=== PATIENT | male | born 1955 | race Caucasian/White ===

== ENCOUNTER 2024-09-24 08:34 | Emergency (ER) | payer MEDICARE, OTHER ==
--- OUTSIDE RECORDS SUMMARY | 2024-09-24 08:45 | XMS REPORT | Continuity of Care Document ---
Author Name Unknown Address [address] [facility] [address] [place] [address] [facility] [place] Address [address] [facility] [place] [address] Care Team Providers Care Filling Layer Up Name Role Phone Monae RICHTER, Kelsey Alonzo Primary Care Physician RONALD CRUZ Attending Clinician Unavailab le Doctor Unassigned, [place] Attending Clinician U jorge luis Taylor, [facility] Main Attending Clinician UnavailTanvi Randhawa MD Attending Clinician [phone] TANVI CARDENAS Attending Clinician Unavailabl e Jaylin Lee Attending Clinician [phone] YANELIS ENGLE Attending Clinician Unavailable Yanelis Engle MD Attending Clinician [phone] Sofiya GABRIEL, Carlos Jin Attending Clinician Unavail CARLOS Garcia Attending Clinician UnavailDago Duenas DO Attending Clinician [phone] Carlos Escobar MD Attending Clinician [phone] Jude RICHTER, Mavis Olea Attending Clinician [phone] Doctor Unassigned, [place]igler Attending Clinician U Trina García Attending Clinician DIANE MENEZES Attending Clinician Unavailab Diane Schmitt DO Attending Clinician [phone] DARLEEN SAWANT Attending Clinician Unavailable JOSE E MOORE Attending Clinician Unavailable Kelsey Pinto MD Attending Clinician + [phone] STEPHON ESCOBAR Attending Clinician Unavailable Ulises Attending Clinician Unavailable Jese RICHTER, Darleen Attending Clinician [phone] MAVIS DURAN Attending Clinician Unavailannabel Escobar MD, Stephon Attending Clinician [phone] KELSEY PINTO Attending Clinician UnaCASA Sanchez Attending Clinician Unavailable CASA TRIPLETT Attending Clinician Unavailable Lay Gilbert Attending Clinician Unavailgeneva White RN, Hannah Pascual Attending Clinician Unavail able TYREE CHATTERJEE Attending Clinician Unavailable Mera RICHTER, Tanvi Attending Clinician [phone] Riley Junior MD Attending Clinician [phone] Tyree Chatterjee DO Attending Clinician [phone] ALEX KEYES Attending Clinician Unavailable Alex Keyes MD Attending Clinician [phone] Jose Guadalupe Seaman MD Attending Clinician [phone] JOSE GUADALUPE SEAMAN Attending Clinician Unavailable KARRI ARRIAGA Attending Clinician Unavailable Brain PANDEY Attending Clinician Unavailable Brain Rivera Attending Clinician [phone] Katerin Moffett MD Attending Clinician [phone] Casa Triplett DO Attending Clinician [phone] MELANIE SANCHEZ Attending Clinician UnavailMelanie Winter MD Attending Clinician [phone] OG ESCOBAR Attending Clinician Unavailable Og Escobar MD Attending Clinician [phone] Only, Adc Test Attending Clinician Unavailable Ronald Cruz DO Attending Clinician [phone] Mckayla Forrester Attending Clinician Carlos GABRIEL, Rio Jin Attending Clinician Unavailab Gilberto Olivarez Endo/Diab Attending Clinician Unavail able LAY MARADIAGA Attending Clinician Unavailable Antonio GABRIEL, Avani Attending Clinician Unavailab Tanvi Alaniz MD Attending Clinician + [phone] OWEN CHENEY Attending Clinician Unavailable Owen Cheney MD Attending Clinician [phone] STEPHANI ALCANTARA Attending Clinician Unavailable GEORGIA FOSTER Attending Clinician Unavailable GRAMM ZEINAB A Attending Clinician Unavailable Gramm G[employer] WE[employer] DRILLING MANAGER, Zeinab A Attending Clinician + [phone] MANDYVERA A Attending Clinician Unavailable Vera Bustamante Attending Clinician [phone] Therapist, [facility] Respiratory Attending Clinician U Jason Allen MD Attending Clinician [phone] JASON RODRIGUEZ Attending Clinician Unavaila ble Tech, [facility] Sleep Lab Attending Clinician Unavaila Gayle Grant MD Attending Clinician + [phone] GAYLE BARRAGAN Attending Clinician Unavaila GAYLE Grant Attending Clinician Unavaila John Smith MD Attending Clinician [phone] Pob, [facility] Lab Main Attending Clinician UnavailELIDA Ibanez Attending Clinician Unavailable Rogerio Bojorquez DO Attending Clinician [phone] CHRISTIE HANKS Attending Clinician UnavailChristie Rangel MD Attending Clinician + [phone] , [facility] Vascular Room 1 - Attending Clinician Un available Elida Rangel MD Attending Clinician [phone] Ajibade_O_AH Attending Clinician Unavailable Daniel Lawler Attending Clinician [phone] Arun Brock MD Attending Clinician [phone] Outpt-Jocelin Vital Attending Clinician Unavailable Maninder Grady MD Attending Clinician +[phone] MANINDER GRADY Attending Clinician Unavailable 2, [facility] Attending Clinician Unavailable KATERIN MOFFETT Attending Clinician Unavailable Ige-Odunuga_J_AH Attending Clinician Unavailable Tech, [facility] Cardio Vascular Attending Clinician Un available [facility] Attending Clinician Unavailable Nadia Tenorio PT Attending Clinician Unavailab RONALD Mckeon Admitting Clinician Unavailab CARLOS Mancilla Admitting Clinician UnavailCarlos Mccoy MD Admitting Clinician Ulises Admitting Clinician Unavailable RILEY JUNIOR Admitting Clinician Unavailable STEPHON ESCOBAR Admitting Clinician Unavailable Stephon Escobar MD Admitting Clinician [phone] ALEX KEYES Admitting Clinician Unavailable JOSE E MOORE Admitting Clinician Unavailable Brain PANDEY Admitting Clinician Unavailable DIANE MENEZES Admitting Clinician Unavailab OG Mancilla Admitting Clinician Unavailable Og Escobar MD Admitting Clinician +[phone] Ronald Cruz DO Admitting Clinician +[phone] CASA TRIPLETT Admitting Clinician Unavailable OWEN CHENEY Admitting Clinician Unavailable MELANIE SANCHEZ Admitting Clinician Unavailgeneva hawkins Ajibade_O_AH Admitting Clinician Unavailable Daniel Lawler Admitting Clinician + [phone] MAVIS DURAN Admitting Clinician Unavaila ble Ige-Odunuga_J_AH Admitting Clinician Unavailable Payers Payer Name Policy Type Policy Number Effective Date Expirati on Date Source [employer] [place] CLASS[place] PREMIUM HMO [id number] 2020 00:00:00 [employer] HE[employer] MC[employer] ADVANTAGE PLAN OON DSYHJE 2022 00:00:00 [employer] HEALTH (MEDICARE REPLACEMENT HMO) DSYHJE 2022 00:00:00 [employer] [place]IC[place] REPLACEMENT/ADVANT[place] GE - HMO) [id number] 2019 00:00:00 [employer] [facility] [place] [employer] [id number] 2018 00:00:00 2019 00:00:00 Problems Condition Name Condition Details Condition Category Status Onset Date Resolution Date Last Treatment Date Treating Clinician Comments Source Cellulitis of left foot Cellulitis of left foot Disease Active 11-13 00:00: 00 [facility] Bradycardi a Bradycardi a Disease Active 06-15 00:00: 00 [facility] S/P carotid endarterec suresh S/P carotid endarterec suresh Disease Active 2021-06 00:00: 00 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 Added automatic ally from request for surgery [id number] [facility] Fatty liver Fatty liver Disease Active 06-15 00:00: 00 [facility] Neuralgia Neuralgia Disease Active 11-01 00:00: 00 [facility] Essential hypertensi on Essential hypertensi on Disease Active 11-01 00:00: 00 [facility] CAD S/P percutaneo us coronary angioplast y CAD S/P percutaneo us coronary angioplast y Disease Active 01-24 00:00: 00 [facility] CAD S/P percutaneo us coronary angioplast y CAD S/P percutaneo us coronary angioplast y Disease Active 01-24 00:00: 00 [facility] Surgery, elective Surgery, elective Disease Active 2017-06 00:00: 00 [facility] Carotid stenosis Carotid stenosis Disease Active 2017-06 00:00: 00 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 Type 2 diabetes mellitus with peripheral vascular disease Type 2 diabetes mellitus with peripheral vascular disease Disease Active 2017-06 00:00: 00 [facility] Type 2 diabetes mellitus with peripheral vascular disease Type 2 diabetes mellitus with peripheral vascular disease Disease Active 2017-06 00:00: 00 [facility] Recurrent carotid stenosis, right Recurrent carotid stenosis, right Disease Active 01-28 00:00: 00 Overview: Formattin g of this note might be different from the original. Added automatic ally from request for surgery [id number] [facility] Chest pain Chest pain Disease Active 2-05 00:00: 00 [facility] MRSA (methicill in resistant staph aureus) culture positive MRSA (methicill in resistant staph aureus) culture positive Disease Active 07-07 00:00: 00 [facility] Pleural effusion Pleural effusion Disease Active 07-04 00:00: 00 [facility] Confusion Confusion Disease Active 06-28 00:00: 00 [facility] S/P CABG x 3 on 06/21/2017 S/P CABG x 3 on 06/21/2017 Disease Active 06-21 00:00: 00 [facility] CAD (coronary artery disease) CAD (coronary artery disease) Disease Active 06-21 00:00: 00 [facility] Left carotid stenosis Left carotid stenosis Disease Active 2016-06 0 00:00: 00 [facility] Stenosis of left carotid artery Stenosis of left carotid artery Disease Active 03-05 00:00: 00 Overview: Formattin g of this note might be different from the original. Added automatic ally from request for surgery [id number] [facility] Coronary artery disease involving [place] coronary artery of [place] heart without angina pectoris Coronary artery disease involving [place] coronary artery of [place] heart without angina pectoris Disease Active 03-02 00:00: 00 [facility] Coronary artery disease involving [place] coronary artery of [place] heart without angina pectoris Coronary artery disease involving [place] coronary artery of [place] heart without angina pectoris Disease Active 03-02 00:00: 00 [facility] Obesity (BMI 30-39.9) Obesity (BMI 30-39.9) Disease Active 03-01 00:00: 00 [facility] Carotid stenosis, right Carotid stenosis, right Disease Active 02-27 00:00: 00 Overview: Formattin g of this note might be different from the original. Added automatic ally from request for surgery [id number] [facility] Carotid stenosis, asymptomat ic, right Carotid stenosis, asymptomat ic, right Disease Active 02-20 00:00: 00 Overview: Formattin g of this note might be different from the original. Added automatic ally from request for surgery [id number] [facility] Bilateral carotid artery stenosis Bilateral carotid artery stenosis Disease Active 02-15 00:00: 00 Overview: Formattin g of this note might be different from the original. Added automatic ally from request for surgery [id number] [facility] Carotid stenosis, bilateral Carotid stenosis, bilateral Disease Active 02-01 00:00: 00 Overview: Formattin g of this note might be different from the original. Added automatic ally from request for surgery [id number] [facility] Dyslipidem ia Dyslipidem ia Disease Active 02-01 00:00: 00 [facility] Elevated troponin I level Elevated troponin I level Disease Active 01-31 00:00: 00 [facility] Hyperchole steremia Hyperchole steremia Disease Active 2014-06 00:00: 00 [facility] Diabetes mellitus, type II Diabetes mellitus, type II Disease Active 2014-06 00:00: 00 [facility] Panic attacks Panic attacks Disease Active 2014-06 00:00: 00 [facility] Benign prostatic hyperplasi a Benign prostatic hyperplasi a Disease Active 2014-06 00:00: 00 [facility] Adhesive capsulitis of right shoulder Adhesive capsulitis of right shoulder Diagnosis Active [facility] Pain in joint of right shoulder Pain in joint of right shoulder Diagnosis Active [facility] Allergies, Adverse Reactions, Alerts Allergy Name Allergy Type Status Severity Reaction(s) Onset Date Inactive Date Treating Clinician Comments Source KETOROLA C DRUG INGREDI Active High Hallucinates 07-04 00:00: 00 [facility] Ketorola c Propensi ty to adverse reaction s Active Hallucinatio ns 07-04 00:00: 00 [facility] Toradol Adverse Reaction Active Info Not Available [facility] Toradol Drug Allergy Active [facility] Social History Social Habit Start Date Stop Date Quantity Comments Source Gender identity [facility] intake 2023-05-03 00:00:00 2023-05-03 00:00:00 0 /d [facility] Exposure to SARS-CoV-2 (event) 2022-08-02 00:00:00 2022-08-12 02:46:[address] [facility] History of Social function 2022-06-14 00:00:00 2022-06-14 00:00:[address] [facility] Alcoholic beverage intake 2017-03-13 00:00:00 2017-03-13 00:00:00 0 /d [facility] Tobacco use and exposure 2015-05-19 00:00:00 2015-05-19 00:00:00 Smokeless tobacco non-user [facility] Sex assigned at 1955 00:00:00 1955 00:00:[address] [facility] Smoking Status Start Date Stop Date Source Never smoked tobacco [facility] Medications Ordered Medication Name Filled Medication Name Start Date Stop Date Current Medication? Ordering Clinician Indication Dosage Frequency Signature (SIG) Comments Components Source vancomycin (VANCOCIN) 1,500 mg in NaCl 0.9% (NS) 500 mL VIAL-MATE IV piggyback 11-18 19:15: 00 11-18 20:29 :00 No 15mg/kg 1,500 mg (rounded from 1,551 mg = 15 mg/kg ?103.4 kg), IV Piggyback, ONCE, 1 dose, On Sat11/19/23 at 1415, Administer over 90 Minutes, 500 mL, Reason for Anti-Infec tive: Documented Infection, Documented Infection Site: Skin / Soft Tissue, Duration of Therapy: Once (ED) [facility] linezolid 600 mg tablet 11-18 00:00: 00 Yes [id number] 600mg Take 1 tablet by mouth every 12 (twelve) hours. [facility] vancomycin 1,250 mg in NaCl 0.9% (NS) 250 mL VIAL-MATE IV piggyback 11-15 16:30: 00 11-22 16:29 :00 No 1250mg 1,250 mg, IV Piggyback, Q12H ABX, 14 doses, First dose on Sat11/16/23 at 1130, Last dose on Sat11/22/23 at 2330, Administer over 90 Minutes, 250 mL, Reason for Anti-Infec tive: Documented Infection, Documented Infection Site: Skin / Soft Tissue, Duration of Therapy: [address] [facility] fexofenadin e 180 mg tablet 11-15 14:11: 46 Yes 180mg Take 180 mg by mouth daily. [facility] amino acids/chrom ium (CHROMIMIN ORAL) 11-15 14:11: 46 Yes Take by mouth. [facility] metoprolol tartrate 50 mg tablet 11-15 14:11: 45 11-15 00:00 :00 No 50mg Take 1 tablet by mouth once now. [facility] insulin glargine (LANTUS U-100) injection 18 Units 11-15 02:00: 00 Yes 18U 18 Units, Subcutaneo us, QHS, First dose on Sat11/15/23 at 2100, Until Discontinu ed, Routine [facility] sulfamethox azole-trime thoprim 800-160 mg per tablet 11-15 00:00: 00 11-23 04:59 :00 No [id number] 1{tbl} Take 1 tablet by mouth in the morning and 1 tablet in the evening. Do all this for [address] [facility] vancomycin (VANCOCIN) 1,000 mg in NaCl 0.9% (NS) 250 mL VIAL-MATE IV piggyback 11-14 17:00: 00 11-15 11:54 :55 No 1000mg 1,000 mg, IV Piggyback, Q12H ABX, 14 doses, First dose on Sat11/15/23 at 1200, Last dose on Sat11/22/23 at 0000, Administer over 60 Minutes, 250 mL, Reason for Anti-Infec tive: Documented Infection, Documented Infection Site: Skin / Soft Tissue, Duration of Therapy: [address] [facility] Sliding Scale Insulin-Reg ular 11-14 16:30: 00 Yes Subcutaneo us, AC+HS, First dose on Sat11/15/23 at 1130, Until Discontinu ed, Routine [facility] aspirin chewable tablet 81 mg 11-14 14:00: 00 Yes 81mg 81 mg, Oral, DAILY, First dose on Sat11/15/23 at 0900, Until Discontinu ed, Routine [facility] enoxaparin (LOVENOX) injection 40 mg 11-14 14:00: 00 Yes 40mg 40 mg, Subcutaneo us, DAILY, First dose on Sat11/15/23 at 0900, Until Discontinu ed, Routine [facility] glucagon (GLUCAGEN DIAGNOSTIC KIT) injection 1 mg 11-14 12:46: 53 Yes 1mg 1 mg, Intramuscu lar, PRN, Starting on Sat11/15/23 at 0746, Until Discontinu ed, EMILY, Blood Glucose < or = 70 mg/dL and patient is NPO, unable to swallow or has mental changes. [facility] dextrose 50 % in water (D50W) injection 25 mL 11-14 12:46: 53 Yes 25mL 25 mL, Slow IV Push, PRN, Starting on Sat11/15/23 at 0746, Until Discontinu ed, EMILY, Blood Glucose < or = 70 mg/dL and patient is NPO, unable to swallow or has mental status changes. [facility] diazePAM (VALIUM) tablet 2.5 mg 11-14 12:36: [address] [facility] cyclobenzap rine (FLEXERIL) tablet 10 mg 11-14 12:36: [address] [facility] ampicillin- sulbactam (UNASYN) 3 g in NaCl 0.9% (NS) 100 mL MINI-BAG 11-14 06:00: 00 11-20 05:59 :00 No 3g 3 g, IV Piggyback, Q6H ABX, 24 doses, First dose on Sat11/15/23 at 0100, Last dose on Sat11/20/23 at 1900, Administer over 30 Minutes, 100 mL, Reason for Anti-Infec tive: Documented Infection, Documented Infection Site: Skin / Soft Tissue, Duration of Therapy: [address] [facility] ondansetron (ZOFRAN (PF)) injection 4 mg 11-14 04:48: 48 Yes 4mg 4 mg, Slow IV Push, Q6HPRN, Starting on Sat11/14/23 at 2348, Until Discontinu ed, Routine, Nausea and Vomiting (N/V) [facility] HYDROcodone -acetaminop hen (NORCO 5) 5-325 mg tablet 1 tablet 11-14 04:48: 40 11-16 04:47 :40 No 1{tbl} 1 tablet, Oral, Q6HPRN, Starting on Sat11/14/23 at 2348, Until 11/16/23 at 2347, Routine, Pain (scale 4-6) [facility] acetaminoph en (TYLENOL) tablet 650 mg 11-14 04:48: 39 Yes 650mg 650 mg, Oral, Q6HPRN, Starting on Katty 11/14/23 at 2348, Until Discontinu ed, Routine, Pain (scale 1-3) [facility] NaCl 0.9% (NS) bolus infusion 1,000 mL 11-14 04:30: 00 11-14 05:48 :00 No 1000mL at 999 mL/hr, 1,000 mL, IV Piggyback, ONCE, 1 dose, On Sat11/14/23 at 2330, STAT [facility] vancomycin (VANCOCIN) 1,000 mg in NaCl 0.9% (NS) 250 mL VIAL-MATE IV piggyback 11-14 04:15: 00 11-14 05:48 :00 No 1000mg 1,000 mg, IV Piggyback, ONCE, 1 dose, On Sat11/14/23 at 2315, Administer over 60 Minutes, 250 mL, Reason for Anti-Infec tive: Empiric Therapy for Suspected Infection, Empiric Therapy Site: Skin / Soft tissue, Duration of therapy: Once (ED) [facility] piperacilli n-tazobacta m (ZOSYN) 3.375 g in NaCl 0.9% (NS) 100 mL MINI-BAG 11-14 03:45: 00 11-14 04:26 :00 No 3.375g 3.375 g, IV Piggyback, ONCE, 1 dose, On Katty 11/14/23 at 2245, Administer over 30 Minutes, 100 mL, Reason for Anti-Infec tive: Documented Infection, Documented Infection Site: Skin / Soft Tissue, Duration of Therapy: Once (ED) [facility] clindamycin 300 mg capsule 2022-06 00:00: 00 05-11 05:59 :00 No [id number] 300mg Take 1 capsule by mouth 4 (four) times daily for [address] [facility] ALPRAZOLAM 1 mg tablet 12-05 00:00: 00 11-13 00:00 :00 No [id number] TAKE 1 TABLET BY MOUTH THREE TIMES DAILY NEEDED [facility] gabapentin 100 mg capsule 07-05 00:00: 00 Yes [id number] TAKE 1 CAPSULE BY MOUTH AT BEDTIME [facility] insulin degludec (TRESIBA FLEXTOUCH U-100) 100 unit/mL (3 mL) InPn 06-29 00:00: 00 09-24 00:00 :00 No 24U inject 24 Units under the skin daily. [facility] fexofenadin e 180 mg tablet 06-17 13:07: 38 Yes 180mg Take 180 mg by mouth daily. [facility] amino acids/chrom ium (CHROMIMIN ORAL) 06-17 13:07: 38 Yes Take by mouth. [facility] gabapentin (NEURONTIN) capsule 100 mg 06-17 02:00: 00 Yes 100mg 100 mg, Oral, TID, First dose on 06/16/22 at 2000, Until Discontinu ed, Routine [facility] cyclobenzap rine (FLEXERIL) tablet 10 mg 06-17 00:31: 19 Yes 10mg 10 mg, Oral, TIDPRN, Starting on 06/16/22 at 1831, Until Discontinu ed, Routine, Muscle Spasms [facility] magnesium sulfate in water 2 gram/50 mL (4 %) infusion 2 g 06-16 21:15: 00 06-16 22:15 :00 No 2g 2 g, IV Piggyback, Administer over 60 Minutes, ONCE, 1 dose, On 06/16/22 at 1515, Routine [facility] ALPRAZolam (XANAX) tablet 0.25 mg 06-16 18:31: 00 Yes .25mg 0.25 mg, Oral, TIDPRN, Starting on 06/16/22 at 1231, Until Discontinu ed, Routine, Anxiety [facility] prednisoLON E acetate (PRED-FORTE ) 1 % ophthalmic suspension drops 1 Drop 06-16 18:00: 00 Yes 1[drp] 1 Drop, Left Eye, QID, First dose on 06/16/22 at 1200, Until Discontinu ed, Routine [facility] moxifloxaci n (VIGAMOX) 0.5 % ophthalmic drops 1 Drop 06-16 18:00: 00 Yes 1[drp] 1 Drop, Left Eye, QID, First dose on 06/16/22 at 1200, Until Discontinu ed, Routine [facility] aspirin chewable tablet 81 mg 06-16 15:00: 00 Yes 81mg 81 mg, Oral, DAILY, First dose on 06/16/22 at 0900, Until Discontinu ed, Routine [facility] enoxaparin (LOVENOX) injection 40 mg 06-16 15:00: 00 Yes 40mg 40 mg, Subcutaneo us, DAILY, First dose on 06/16/22 at 0900, Until Discontinu ed, Routine [facility] Sliding Scale Insulin - Lispro (HumaLOG) + Fsbg Testing 06-16 03:00: 00 Yes Subcutaneo us, TID MEALS+HS, First dose on Sat06/15/22 at 2100, Until Discontinu ed, Routine [facility] atropine injection 0.3 mg 06-16 01:49: 28 Yes .3mg 0.3 mg, IV Push, PRN, Starting on Sat06/15/22 at 1949, Until Discontinu ed, Routine, Symptomati c Bradycardi a, with HR<50 [facility] fluticasone propionate 50 mcg/actuati on nasal spray 1 Aroda 06-16 01:47: 56 Yes 1{spray } 1 Aroda, Nasal, QDAILYPRN, Starting on Sat06/15/22 at 1947, Until Discontinu ed, NAsal congestion [facility] dextrose 10% (D10W) bolus infusion 250 mL 06-16 00:44: 38 Yes 250mL 250 mL, IV Infusion, PRN - SEE INSTRUCTIO NS, Administer over 60 Minutes, Other, If blood glucose is < or = 70 mg/dL and patient is unable to swallow or has mental status changes, Starting on Sat06/15/22 at 1844
If blood glucose is < or = 70 mg/dL and patient is unable to swallow or has mental status changes (Give glucagon order if patient needs fluid restrictio n): IF IV access available: Dextrose 10%. 1. 125 mL (? bag) of D10W IV infusion - equivalent to 12.5 g dextrose 2. Blood glucose - draw blood glucose 15 minutes after D10W Administra tion. 3. If blood glucose is < 80 mg/dL, repeat.
[facility] glucagon (GLUCAGEN DIAGNOSTIC KIT) injection 1 mg 06-16 00:44: 34 Yes 1mg 1 mg, Intramuscu lar, PRN, Starting on Sat06/15/22 at 1844, Until Discontinu ed, EMILY, Blood Glucose < or = 70 mg/dL and patient is unable to swallow or has mental changes. [facility] ALPRAZolam (XANAX) tablet 0.25 mg 06-15 23:45: 00 06-16 02:03 :00 No .25mg 0.25 mg, Oral, ONCE, 1 dose, On Sat06/15/22 at 1745, [facility] NaCl 0.9% (NS) bolus infusion 1,000 mL 06-15 22:45: 00 06-16 02:05 :36 No 1000mL at 999 mL/hr, 1,000 mL, IV Infusion, ONCE, 1 dose, On Sat06/15/22 at 1645, [facility] NaCl 0.9% (NS) bolus infusion 500 mL 06-15 21:30: 00 06-15 23:33 :00 No 500mL at 999 mL/hr, 500 mL, IV Infusion, ONCE, 1 dose, On Sat06/15/22 at 1530, [facility] atropine injection 1 mg 06-15 21:00: 00 06-15 21:02 :00 No 1mg 1 mg, IV Push, ONCE, 1 dose, On Sat06/15/22 at 1500, STAT [facility] fexofenadin e 180 mg tablet 06-15 19:43: 29 Yes 180mg Take 180 mg by mouth daily. [facility] amino acids/chrom ium (CHROMIMIN ORAL) 06-15 19:43: 29 Yes Take by mouth. [facility] lactated ringers IV infusion 1,000 mL 06-14 13:30: 00 06-14 13:43 :00 No 1000mL at 42 mL/hr, 1,000 mL, IV Infusion, ONCE, 1 dose, On Sat06/14/22 at 0730, Routine, DSU Pre-op [facility] moxifloxaci n (VIGAMOX) 0.5 % ophthalmic drops 1 Drop 06-14 13:18: 19 06-14 13:43 :00 No 1[drp] 1 Drop, Left Eye, Q5MIN PRN, 3 doses, Starting on Katty 06/14/22 at 0718, Until Katty 06/14/22 at 0743, Routine, Surgery/Pr ocedure, DSU Pre-op [facility] cyclopentol ate (CYCLOGYL) 2 % ophthalmic drops 1 Drop 06-14 13:18: 19 06-14 13:44 :00 No 1[drp] 1 Drop, Left Eye, Q5MIN PRN, 3 doses, Starting on Katty 06/14/22 at 0718, Until Katty 06/14/22 at 0744, Routine, administer if combinatio n drop not available, DSU Pre-op [facility] tropicamide (MYDRIACYL) 1 % ophthalmic drops 1 Drop 06-14 13:18: 19 06-14 13:43 :00 No 1[drp] 1 Drop, Left Eye, Q5MIN PRN, 3 doses, Starting on Katty 06/14/22 at 0718, Until Katty 06/14/22 at 0743, Routine, Surgery/Pr ocedure, administer if combinatio n drop not available, DSU Pre-op [facility] phenylephri ne (BEULAH-SYNEPH RINE) 2.5 % ophthalmic drops 1 Drop 06-14 13:18: 19 06-14 13:43 :00 No 1[drp] 1 Drop, Left Eye, Q5MIN PRN, 3 doses, Starting on Katty 06/14/22 at 0718, Until Katty 06/14/22 at 0743, Routine, Surgery/Pr ocedure, administer if combinatio n drop not available, DSU Pre-op [facility] fexofenadin e 180 mg tablet 06-14 12:37: 45 Yes 180mg Take 180 mg by mouth daily. [facility] amino acids/chrom ium (CHROMIMIN ORAL) 06-14 12:37: 45 Yes Take by mouth. [facility] fexofenadin e 180 mg tablet 2021-06 10:19: 51 Yes 180mg Take 180 mg by mouth daily. [facility] amino acids/chrom ium (CHROMIMIN ORAL) 2021-06 10:19: 51 Yes Take by mouth. [facility] fexofenadin e 180 mg tablet 2021-06 15:47: 17 Yes 180mg Take 180 mg by mouth daily. [facility] amino acids/chrom ium (CHROMIMIN ORAL) 2021-06 15:47: 17 Yes Take by mouth. [facility] traMADoL 50 mg tablet 2021-06 00:00: 00 05-18 05:59 :00 No [id number] 50mg Take 1 tablet by mouth every 6 (six) hours as needed for Pain (scale 4-6) or Pain (scale 7-10) for up to 7 days. Indication s: acute pain [facility] acetaminoph en 500 mg tablet 2021-06 00:00: 00 05-16 05:59 :00 No [id number] 1000mg Take 2 tablets by mouth every 8 (eight) hours for [address] [facility] methocarbam oL 500 mg tablet 2021-06 00:00: 00 05-16 05:59 :00 No [id number] 500mg Take 1 tablet by mouth 4 (four) times daily for [address] [facility] metFORMIN (GLUCOPHAGE ) tablet 1,000 mg 2021-06 23:00: 00 Yes 1000mg 1,000 mg, Oral, BID MEALS, First dose (after last reorder) on Sat05/09/22 at 1700, Until Discontinu ed [facility] barium sulfate-NO CHARGE- (VARIBAR NECTOR) 40 % (w/v) oral suspension 30 mL 2021-06 20:45: 00 05-09 20:35 :00 No [id number] 30mL 30 mL, Oral, ONCE, 1 dose, On Sat05/09/22 at 1445, Routine [facility] barium sulfate (VARIBAR THIN LIQUID) 81 % (w/w) oral powder 30 g 2021-06 20:30: 00 05-09 20:30 :00 No [id number] 30g 30 g, Oral, ONCE, 1 dose, On Sat05/09/22 at 1430, Routine [facility] Sliding Scale Insulin - Lispro (HumaLOG) + Fsbg Testing 2021-06 18:00: 00 Yes Subcutaneo us, Q4H, First dose (after last modificati on) on Sat05/09/22 at 1200, Until Discontinu ed, Routine [facility] ALPRAZolam (XANAX) tablet 1 mg 2021-06 17:30: 00 Yes 1mg 1 mg, Oral, TIDPRN, Starting on Sat05/09/22 at 1130, Until Discontinu ed, Routine, Insomnia, Anxiety [facility] loratadine (CLARITIN) tablet 10 mg 2021-06 16:15: 00 Yes 10mg 10 mg, Oral, DAILY, First dose on Sat05/09/22 at 1015, Until Discontinu ed, Routine [facility] sennosides (SENOKOT) tablet 8.6 mg 2021-06 15:00: 00 Yes 8.6mg 8.6 mg, Oral, DAILY, First dose on Sat05/09/22 at 0900, Until Discontinu ed, Routine [facility] docusate (COLACE) capsule 100 mg 2021-06 15:00: 00 Yes 100mg 100 mg, Oral, DAILY, First dose on Sat05/09/22 at 0900, Until Discontinu ed, Routine [facility] pantoprazol e (PROTONIX) EC tablet 40 mg 2021-06 15:00: 00 Yes 40mg 40 mg, Oral, DAILY, First dose on Sat05/09/22 at 0900, Until Discontinu ed, Routine
Indicatio n for use: None of the above [facility] fluticasone propionate 50 mcg/actuati on nasal spray 2 Aroda 2021-06 15:00: 00 Yes 2{spray } 2 Aroda, Nasal, DAILY, First dose on Sat05/09/22 at 0900, Until Discontinu ed, Routine [facility] KCL (KLOR-CON M20) tablet 20 mEq 2021-06 15:00: 00 Yes 20meq 20 mEq, Oral, QAM, First dose on Sat05/09/22 at 0900, Until Discontinu ed, Routine [facility] aspirin chewable tablet 81 mg 2021-06 15:00: 00 Yes 81mg 81 mg, Oral, DAILY, First dose on Sat05/09/22 at 0900, Until Discontinu ed, Routine [facility] acetaminoph en (TYLENOL) tablet 1,000 mg 2021-06 14:33: 13 Yes 1000mg 1,000 mg, Oral, Q8HPRN, Starting on Sat05/09/22 at 0833, Until Discontinu ed, Routine, Pain (scale 4-6), Pain (scale 1-3) [facility] magnesium sulfate in water 2 gram/50 mL (4 %) infusion 2 g 2021-06 12:45: 00 05-09 13:33 :00 No 2g 2 g, IV Piggyback, Administer over 60 Minutes, ONCE, 1 dose, On Sat05/09/22 at 0645, Routine [facility] acetaminoph en (TYLENOL) tablet 650 mg 2021-06 11:42: 00 05-09 14:33 :28 No 650mg 650 mg, Oral, Q8H ABX, First dose (after last modificati on) on Sat05/09/22 at 0545, Until Discontinu ed, Routine [facility] HYDROcodone -acetaminop hen (NORCO 5) 5-325 mg tablet 1 tablet 2021-06 03:58: 41 05-09 14:33 :28 No 1{tbl} 1 tablet, Oral, Q8HPRN, Starting on Sat05/08/22 at 2158, Until Sat05/09/22 at 0833, Routine, Pain (scale 4-6) [facility] acetaminoph en (TYLENOL) tablet 650 mg 2021-06 03:30: 00 05-09 03:59 :08 No 650mg 650 mg, Oral, Q6H, First dose on Sat05/08/22 at 2130, Until Discontinu ed, Routine [facility] atorvastati n (LIPITOR) tablet 80 mg 2021-06 03:00: 00 Yes 80mg 80 mg, Oral, QHS, First dose on Sat05/08/22 at 2100, Until Discontinu ed, Routine [facility] heparin (porcine) injection 5,000 Units 2021-06 02:00: 00 Yes 5000U 5,000 Units, Subcutaneo us, Q12H, First dose on Sat05/08/22 at 2000, Until Discontinu ed, Routine [facility] metoprolol tartrate (LOPRESSOR) tablet 50 mg 2021-06 02:00: 00 Yes 50mg 50 mg, Oral, BID, First dose on Sat05/08/22 at 2000, Until Discontinu ed, Routine [facility] prednisoLON E acetate (PRED-FORTE ) 1 % ophthalmic suspension drops 1 Drop 2021-06 22:00: 00 Yes 1[drp] 1 Drop, Left Eye, QID, First dose on Sat05/08/22 at 1600, Until Discontinu ed, Routine [facility] moxifloxaci n (VIGAMOX) 0.5 % ophthalmic drops 1 Drop 2021-06 22:00: 00 Yes 1[drp] 1 Drop, Left Eye, QID, First dose on Sat05/08/22 at 1600, Until Discontinu ed, [facility] - Lispro (HumaLOG) + Fsbg Testing 2021-06 22:00: 00 05-09 14:20 :56 No Subcutaneo us, Q4H, First dose on Sat05/08/22 at 1600, Until Discontinu ed, Routine [facility] ALPRAZolam (XANAX) tablet 1 mg 2021-06 20:00: 00 05-09 17:17 :24 No 1mg 1 mg, Oral, TID, First dose on Sat05/08/22 at 1400, Until Discontinu ed, Routine [facility] dextrose 10% (D10W) bolus infusion 250 mL 2021-06 19:04: 36 Yes 250mL 250 mL, IV Infusion, PRN - SEE INSTRUCTIO NS, Administer over 60 Minutes, Other, If blood glucose is < or = 70 mg/dL and patient is unable to swallow or has mental status changes, Starting on Sat05/08/22 at 1304
If blood glucose is < or = 70 mg/dL and patient is unable to swallow or has mental status changes (Give glucagon order if patient needs fluid restrictio n): IF IV access available: Dextrose 10%. 1. 125 mL (? bag) of D10W IV infusion - equivalent to 12.5 g dextrose 2. Blood glucose - draw blood glucose 15 minutes after D10W Administra tion. 3. If blood glucose is < 80 mg/dL, repeat.
[facility] glucagon (GLUCAGEN DIAGNOSTIC KIT) injection 1 mg 2021-06 19:04: 34 Yes 1mg 1 mg, Intramuscu lar, PRN, Starting on Sat05/08/22 at 1304, Until Discontinu ed, EMILY, Blood Glucose < or = 70 mg/dL and patient is unable to swallow or has mental changes. [facility] cyclobenzap rine (FLEXERIL) tablet 10 mg 2021-06 18:22: 01 Yes 10mg 10 mg, Oral, TIDPRN, Starting on Sat05/08/22 at 1222, Until Discontinu ed, Routine, Muscle Spasms [facility] albuterol (VENTOLIN) inhaler 2 Puff 2021-06 18:22: 00 Yes 2{puff} 2 Puff, Inhalation , Q6HPRN, Starting on Sat05/08/22 at 1222, Until Discontinu ed, Routine, Wheezing, Shortness of Breath [facility] ondansetron (ZOFRAN-ODT ) disintegrat ing tablet 4 mg 2021-06 18:22: 00 Yes 4mg 4 mg, Oral, Q4HPRN, Starting on Sat05/08/22 at 1222, Until Discontinu ed, Routine, Nausea and Vomiting (N/V) [facility] bupivacaine (preserv free) (SENSORCAIN E MPF) 0.25 % (2.5 mg/mL) injection 2021-06 17:57: 00 05-08 18:40 :10 No PRN, Starting on Sat05/08/22 at 1157, Until Sat05/08/22 at 1240, Routine, [facility]-op [facility] heparin 10,000 units in NS 1000 mL for vascular 2021-06 15:43: 00 05-08 18:40 :10 No PRN, Starting on Sat05/08/22 at 0943, Intra-op [facility] fexofenadin e 180 mg tablet 2021-06 12:27: 41 Yes 180mg Take 180 mg by mouth daily. [facility] amino acids/chrom ium (CHROMIMIN ORAL) 2021-06 12:27: 41 Yes Take by mouth. [facility] fexofenadin e 180 mg tablet 2021-06 12:13: 45 Yes 180mg Take 180 mg by mouth daily. [facility] fexofenadin e 180 mg tablet 2021-06 14:21: 35 Yes 180mg Take 180 mg by mouth daily. [facility] iopamidol (ISOVUE 370-500 mL) injection 100 mL 2021-06 15:45: 00 04-05 15:54 :00 No [id number] 100mL 100 mL, Intravenou s, ONCE, 1 dose, On Katty 04/05/22 at 1045, Routine [facility] NaCl 0.9% (NS) bolus infusion 500 mL 2021-06 01:45: 00 04-03 02:00 :00 No 500mL at 999 mL/hr, 500 mL, IV Infusion, ONCE, 1 dose, On 04/02/22 at 2045, STAT [facility] magnesium sulfate in water 2 gram/50 mL (4 %) infusion 2 g 2021-06 01:30: 00 04-03 01:13 :00 No 2g 2 g, IV Piggyback, Administer over 60 Minutes, ONCE, 1 dose, On Sat04/02/22 at 2030, Routine [facility] amino acids/chrom ium (CHROMIMIN ORAL) 2021-06 15:54: 48 Yes Take by mouth. [facility] moxifloxaci n 0.5 % ophthalmic drops 2021-06 00:00: 00 Yes [id number] 1[drp] Place 1 Drop in left eye 4 (four) times daily. Start [address] [facility] prednisoLON E acetate 1 % ophthalmic suspension drops 2021-06 00:00: 00 Yes [id number] 9108 1[drp] Place 1 Drop in left eye 4 (four) times daily. [facility] fexofenadin e 180 mg tablet 02-01 10:42: 34 Yes 180mg Take 180 mg by mouth daily. [facility] metoprolol tartrate 50 mg tablet 01-26 00:00: 00 06-17 00:00 :00 No [id number] 50mg Take 1 tablet by mouth in the morning and 1 tablet in the evening. [facility] FUROSEMIDE 40 mg tablet 01-26 00:00: 00 06-17 00:00 :00 No [id number] TAKE 1 TABLET BY MOUTH IN THE MORNING AND THE EVENING FOR A WEEK THEN [address] [facility] amino acids/chrom ium (CHROMIMIN ORAL) 12-13 11:14: 42 Yes Take by mouth. [facility] cyclobenzap rine 10 mg tablet 11-08 00:00: 00 11-18 00:00 :00 No [id number] 9100 10mg Take 1 tablet by mouth 3 (three) times daily as needed for Muscle Spasms. [facility] Insulin [place], Disposable, (BONITA PEN NEEDLE) 32 gauge x 5/32" Ndle 09-27 00:00: 00 Yes [id number] USE DIRECTED- ONCE DAILY. DX:E11.65 [facility] Insulin [place], Disposable, (BONITA PEN NEEDLE) 32 gauge x 5/32" Ndle 4-20 00:00: 00 Yes [id number] USE DIRECTED- ONCE DAILY. DX:E11.65 [facility] fluticasone propionate 50 mcg/actuati on nasal spray 4-18 00:00: [address] [facility] blood sugar diagnostic (ONETOUCH VERIO TEST STRIPS) strip 3-31 00:00: 00 Yes [id number] Use as directed to check blood sugars daily E11.[address] [facility] lancets (ONETOUCH DELICA PLUS LANCET) 30 gauge Misc 3-31 00:00: 00 Yes [id number] Use as directed to check blood sugars once daily E11.[address] [facility] fluticasone (FLONASE SENSIMIST) 27.5 mcg/actuati on nasal spray 2 00:00: 00 Yes [id number] 2{spray } Use 2 Sprays in each nostril daily. [facility] albuterol 90 mcg/actuati on inhaler 2 00:00: 00 Yes [id number] 2{puff} Inhale 2 Puffs every 6 (six) hours as needed for Wheezing or Shortness of Breath. [facility] diazePAM (VALIUM) 2 mg tablet 1-03 00:00: 00 Yes [id number] 2mg Take 1 tablet by mouth 3 (three) times daily as needed for Muscle Spasms. [facility] ondansetron 4 mg disintegrat ing tablet 2020-06 0-29 00:00: 00 Yes [id number] 4mg Take 1 tablet by mouth every 4 (four) hours as needed for Nausea and Vomiting (N/V). [facility] KCL 20 mEq tablet 723 00:00: 00 Yes [id number] TAKE 1 TABLET BY MOUTH DAILY [facility] gabapentin 100 mg capsule 6- 00:00: 00 07-05 00:00 :00 No [id number] TAKE 1 CAPSULE BY MOUTH AT BEDTIME [facility] ALPRAZOLAM 1 mg tablet 2019-06 0- 00:00: 00 12-05 00:00 :00 No [id number] TAKE 1 TABLET BY MOUTH THREE TIMES DAILY NEEDED [facility] aspirin 81 mg chewable tablet -19 00:00: 00 Yes [id number] 81mg Take 1 tablet by mouth daily. [facility] Glimepiride Glimepiride 2017-06 00:00: 00 Yes Clemente Lau 1 tablet with breakfast or the first main meal of the day [facility] Kombiglyze XR Kombiglyze XR 2017-06 00:00: 00 Yes Clemente Lau 1 tablet with evening meal [facility] Alprazolam Alprazolam 2017-06 00:00: 00 Yes Clemente Lau 1 tablet [facility] TRESIBA FLEXTOUCH 100 UNIT/ML SOLN PEN INJ TRESIBA FLEXTOUCH 100 UNIT/ML SOLN PEN INJ Yes [facility] fluoxetine hcl 20 mg capsule fluoxetine hcl 20 mg capsule Yes [facility] isosorbide mononitrate er 30 mg tablet er 24 hr isosorbide mononitrate er 30 mg tablet er 24 hr Yes [facility] clopidogrel bisulfate 75 mg tablet clopidogrel bisulfate 75 mg tablet Yes [facility] glimepiride 4 mg tablet glimepiride 4 mg tablet Yes [facility] tamsulosin hcl 0.4 mg capsule tamsulosin hcl 0.4 mg capsule Yes [facility] ezetimibe 10 mg tablet ezetimibe 10 mg tablet Yes [facility] torsemide 20 mg tablet torsemide 20 mg tablet Yes [facility] lisinopril 20 mg tablet lisinopril 20 mg tablet Yes [facility] MOUNJARO 5 MG/0.5ML SOLN PEN INJ MOUNJARO 5 MG/0.5ML SOLN PEN INJ Yes [facility] gabapentin 300 mg capsule gabapentin 300 mg capsule Yes [facility] metformin hcl er 500 mg tablet er 24 hr metformin hcl er 500 mg tablet er 24 hr Yes [facility] atorvastati n calcium 80 mg tablet atorvastati n calcium 80 mg tablet Yes [facility] Gabapentin Gabapentin Yes Clemente Lau not defined [facility] Victoza Victoza Yes Clemente Lau not defined [facility] MetFORMIN HCl ER MetFORMIN HCl ER Yes Clemente Lau not defined [facility] Clopidogrel Bisulfate Clopidogrel Bisulfate Yes Clemente Lau not defined [facility] Lantus SoloStar Lantus SoloStar Yes Clemente Lau not defined [facility] Metoprolol Tartrate Metoprolol Tartrate Yes Clemente Lau not defined [facility] Fluoxetine HCl Fluoxetine HCl Yes Clemente Lau not defined [facility] Immunizations Ordered Immunization Name Filled Immunization Name Date Status Comments Source Hep B, Adol or Pedi Dosage 2015-04-12 00:00:[address] [facility] Hep B, Adol or Pedi Dosage 2015-04-12 00:00:[address] [facility] Hep B, Adol or Pedi Dosage 2015-04-12 00:00:[address] [facility] Hep B, Adol or Pedi Dosage 2015-04-12 00:00:[address] [facility] Hep B, Adol or Pedi Dosage 2015-04-12 00:00:[address] [facility] Hep B, Adol or Pedi Dosage 2015-04-12 00:00:[address] [facility] Hep B, Adol or Pedi Dosage 2015-04-12 00:00:[address] [facility] Hep B, Adol or Pedi Dosage 2015-04-12 00:00:[address] [facility] Hep B, Adol or Pedi Dosage 2015-04-12 00:00:[address] [facility] Hep B, Adol or Pedi Dosage 2015-04-12 00:00:[address] [facility] Hep B, Adol or Pedi Dosage 2015-04-12 00:00:[address] [facility] Hep B, Adol or Pedi Dosage 2015-04-12 00:00:[address] [facility] Hep B, Adol or Pedi Dosage 2015-04-12 00:00:[address] [facility] Hep B, Adol or Pedi Dosage 2015-04-12 00:00:[address] [facility] Hep B, Adol or Pedi Dosage 2015-04-12 00:00:[address] [facility] Hep B, Adol or Pedi Dosage 2015-04-12 00:00:[address] [facility] Hep B, Adol or Pedi Dosage 2015-04-12 00:00:[address] [facility] Hep B, Adol or Pedi Dosage 2015-04-12 00:00:[address] [facility] Hep B, Adol or Pedi Dosage 2015-04-12 00:00:[address] [facility] Hep B, Adol or Pedi Dosage 2015-04-12 00:00:[address] [facility] Hep B, Adol or Pedi Dosage 2015-04-12 00:00:[address] [facility] Hep B, Adol or Pedi Dosage 2015-04-12 00:00:[address] [facility] Hep B, Adol or Pedi Dosage 2015-04-12 00:00:[address] [facility] Hep B, Adol or Pedi Dosage 2015-04-12 00:00:[address] [facility] Hep B, Adol or Pedi Dosage 2015-04-12 00:00:[address] [facility] Hep B, Adol or Pedi Dosage 2015-04-12 00:00:[address] [facility] Hep B, Adol or Pedi Dosage 2015-04-12 00:00:[address] [facility] Hep B, Adol or Pedi Dosage 2015-04-12 00:00:[address] [facility] Hep B, Adol or Pedi Dosage 2015-04-12 00:00:[address] [facility] Hep B, Adol or Pedi Dosage 2015-04-12 00:00:[address] [facility] Hep B, Adol or Pedi Dosage 2015-04-12 00:00:[address] [facility] Hep B, Adol or Pedi Dosage 2015-04-12 00:00:[address] [facility] Hep B, Adol or Pedi Dosage 2015-04-12 00:00:[address] [facility] Hep B, Adol or Pedi Dosage 2015-04-12 00:00:[address] [facility] Hep B, Adol or Pedi Dosage 2015-04-12 00:00:[address] [facility] Hep B, Adol or Pedi Dosage 2015-04-12 00:00:[address] [facility] Hep B, Adol or Pedi Dosage 2015-04-12 00:00:[address] [facility] Hep B, Adol or Pedi Dosage 2015-04-12 00:00:[address] [facility] Hep B, Adol or Pedi Dosage 2015-04-12 00:00:[address] [facility] Hep B, Adol or Pedi Dosage 2015-04-12 00:00:[address] [facility] Hep B, Adol or Pedi Dosage 2015-04-12 00:00:[address] [facility] Hep B, Adol or Pedi Dosage 2015-04-12 00:00:[address] [facility] Hep B, Adol or Pedi Dosage 2015-04-12 00:00:[address] [facility] Hep B, Adol or Pedi Dosage 2015-04-12 00:00:[address] [facility] Hep B, Adol or Pedi Dosage 2015-04-12 00:00:[address] [facility] Hep B, Adol or Pedi Dosage 2015-04-12 00:00:[address] [facility] Hep B, Adol or Pedi Dosage Unknown Completed [facility] Hep B, Adol or Pedi Dosage Unknown Completed [facility] Hep B, Adol or Pedi Dosage Unknown Completed [facility] Hep B, Adol or Pedi Dosage Unknown Completed [facility] Hep B, Adol or Pedi Dosage Unknown Completed [facility] Hep B, Adol or Pedi Dosage Unknown Completed [facility] Hep B, Adol or Pedi Dosage Unknown Completed [facility] Hep B, Adol or Pedi Dosage Unknown Completed [facility] Hep B, Adol or Pedi Dosage Unknown Completed [facility] Hep B, Adol or Pedi Dosage Unknown Completed [facility] Hep B, Adol or Pedi Dosage Unknown Completed [facility] Hep B, Adol or Pedi Dosage Unknown Completed [facility] Hep B, Adol or Pedi Dosage Unknown Completed [facility] Hep B, Adol or Pedi Dosage Unknown Completed [facility] Hep B, Adol or Pedi Dosage Unknown Completed [facility] Hep B, Adol or Pedi Dosage Unknown Completed [facility] Hep B, Adol or Pedi Dosage Unknown Completed [facility] Hep B, Adol or Pedi Dosage Unknown Completed [facility] Hep B, Adol or Pedi Dosage Unknown Completed [facility] Hep B, Adol or Pedi Dosage Unknown Completed [facility] Hep B, Adol or Pedi Dosage Unknown Completed [facility] Hep B, Adol or Pedi Dosage Unknown Completed [facility] Hep B, Adol or Pedi Dosage Unknown Completed [facility] Vital Signs Vital Name Observation Time Observation Value Comments S ource Systolic blood pressure 2023-11-19 18:13:00 110 mm[Hg] [facility] Diastolic blood pressure 2023-11-19 18:13:00 64 mm[Hg] [facility] Heart rate 2023-11-19 18:13:00 65 /min [facility] Body temperature 2023-11-19 18:13:[address] [facility] Respiratory rate 2023-11-19 18:13:00 18 /min [facility] Body height 2023-11-19 18:13:00 182.9 cm [facility] Body weight 2023-11-19 18:13:00 103.42 kg [facility] BMI 2023-11-19 18:13:00 30.92 kg/m2 [facility] Oxygen saturation in Arterial blood by Pulse oximetry 2023-11-19 18:13:00 97 /min [facility] Systolic blood pressure 2023-11-16 16:30:00 134 mm[Hg] [facility] Diastolic blood pressure 2023-11-16 16:30:00 64 mm[Hg] [facility] Heart rate 2023-11-16 16:30:00 55 /min [facility] Body temperature 2023-11-16 16:30:[address] [facility] Respiratory rate 2023-11-16 16:30:00 18 /min [facility] Oxygen saturation in Arterial blood by Pulse oximetry 2023-11-16 16:30:00 97 /min [facility] Body weight 2023-11-16 09:06:00 100.971 kg [facility] BMI 2023-11-16 09:06:00 30.19 kg/m2 [facility] Body height 2023-11-15 07:17:00 182.9 cm [facility] Systolic blood pressure 2023-05-03 17:20:00 113 mm[Hg] [facility] Diastolic blood pressure 2023-05-03 17:20:00 73 mm[Hg] [facility] Heart rate 2023-05-03 17:20:00 69 /min [facility] Body temperature 2023-05-03 17:20:[address] [facility] Respiratory rate 2023-05-03 17:20:00 18 /min [facility] Body height 2023-05-03 17:20:00 182.9 cm [facility] Body weight 2023-05-03 17:20:00 102.513 kg [facility] BMI 2023-05-03 17:20:00 30.65 kg/m2 [facility] Oxygen saturation in Arterial blood by Pulse oximetry 2023-05-03 17:20:00 100 /min [facility] Systolic blood pressure 2022-08-12 09:14:29 209 mm[Hg] [facility] Diastolic blood pressure 2022-08-12 09:14:29 94 mm[Hg] [facility] Heart rate 2022-08-12 09:14:29 67 /min [facility] Respiratory rate 2022-08-12 09:14:29 18 /min [facility] Oxygen saturation in Arterial blood by Pulse oximetry 2022-08-12 09:14:29 99 /min [facility] Body temperature 2022-08-12 08:04:[address] [facility] Body height 2022-08-12 08:04:00 182.9 cm [facility] Body weight 2022-08-12 08:04:00 102.059 kg [facility] BMI 2022-08-12 08:04:00 30.52 kg/m2 [facility] Body weight 2022-07-20 19:31:00 102.513 kg [facility] BMI 2022-07-20 19:31:00 30.65 kg/m2 [facility] Body weight 2022-06-26 20:20:00 102.059 kg [facility] BMI 2022-06-26 20:20:00 30.51 kg/m2 [facility] Body temperature 2022-06-17 18:00:[address] [facility] Systolic blood pressure 2022-06-17 13:00:00 139 mm[Hg] [facility] Diastolic blood pressure 2022-06-17 13:00:00 50 mm[Hg] [facility] Heart rate 2022-06-17 13:00:00 51 /min [facility] Respiratory rate 2022-06-17 13:00:00 25 /min [facility] Oxygen saturation in Arterial blood by Pulse oximetry 2022-06-17 13:00:00 95 /min [facility] Body height 2022-06-16 00:45:00 182.9 cm [facility] Body weight 2022-06-15 20:43:00 102.059 kg [facility] BMI 2022-06-15 20:43:00 30.51 kg/m2 [facility] Systolic blood pressure 2022-06-15 20:05:00 84 mm[Hg] [facility] Diastolic blood pressure 2022-06-15 20:05:00 55 mm[Hg] [facility] Heart rate 2022-06-15 20:05:00 38 /min [facility] Respiratory rate 2022-06-15 20:05:00 15 /min [facility] Oxygen saturation in Arterial blood by Pulse oximetry 2022-06-15 20:05:00 99 /min [facility] Systolic blood pressure 2022-06-14 18:20:00 173 mm[Hg] [facility] Diastolic blood pressure 2022-06-14 18:20:00 61 mm[Hg] [facility] Heart rate 2022-06-14 18:20:00 45 /min [facility] Oxygen saturation in Arterial blood by Pulse oximetry 2022-06-14 18:20:00 100 /min [facility] Respiratory rate 2022-06-14 18:15:00 11 /min [facility] Body temperature 2022-06-14 17:58:[address] [facility] Body height 2022-06-14 13:19:00 182.9 cm [facility] Body weight 2022-06-14 13:19:00 101.152 kg [facility] BMI 2022-06-14 13:19:00 30.24 kg/m2 [facility] Systolic blood pressure 2022-05-14 22:30:00 113 mm[Hg] [facility] Diastolic blood pressure 2022-05-14 22:30:00 60 mm[Hg] [facility] Heart rate 2022-05-14 22:30:00 46 /min [facility] Respiratory rate 2022-05-14 22:30:00 25 /min [facility] Oxygen saturation in Arterial blood by Pulse oximetry 2022-05-14 22:30:00 98 /min [facility] Body temperature 2022-05-14 19:18:[address] [facility] Body height 2022-05-14 19:18:00 182.9 cm [facility] Body weight 2022-05-14 19:18:00 101.152 kg [facility] BMI 2022-05-14 19:18:00 30.24 kg/m2 [facility] Systolic blood pressure 2022-05-10 18:14:00 120 mm[Hg] [facility] Diastolic blood pressure 2022-05-10 18:14:00 57 mm[Hg] [facility] Heart rate 2022-05-10 18:14:00 52 /min Un[facility] Body temperature 2022-05-10 18:14:[address] [facility] Respiratory rate 2022-05-10 18:14:00 18 /min [facility] Oxygen saturation in Arterial blood by Pulse oximetry 2022-05-10 18:14:00 96 /min [facility] Body weight 2022-05-10 11:13:00 105.915 kg [facility] BMI 2022-05-10 11:13:00 31.67 kg/m2 [facility] Body height 2022-05-08 11:45:00 182.9 cm [facility] Systolic blood pressure 2022-05-08 11:45:00 179 mm[Hg] [facility] Diastolic blood pressure 2022-05-08 11:45:00 70 mm[Hg] [facility] Heart rate 2022-05-08 11:45:00 63 /min [facility] Body temperature 2022-05-08 11:45:[address] [facility] Respiratory rate 2022-05-08 11:45:00 20 /min [facility] Body height 2022-05-08 11:45:00 182.9 cm [facility] Body weight 2022-05-08 11:45:00 103.4 kg [facility] BMI 2022-05-08 11:45:00 30.92 kg/m2 [facility] Oxygen saturation in Arterial blood by Pulse oximetry 2022-05-08 11:45:00 100 /min [facility] Systolic blood pressure 2022-05-07 16:30:00 104 mm[Hg] [facility] Diastolic blood pressure 2022-05-07 16:30:00 63 mm[Hg] [facility] Heart rate 2022-05-07 16:30:00 74 /min Un[facility] Body height 2022-05-07 16:30:00 182.9 cm [facility] Body weight 2022-05-07 16:30:00 102.513 kg [facility] BMI 2022-05-07 16:30:00 30.65 kg/m2 [facility] Oxygen saturation in Arterial blood by Pulse oximetry 2022-05-07 16:30:00 98 /min [facility] Systolic blood pressure 2022-04-09 19:19:00 129 mm[Hg] [facility] Diastolic blood pressure 2022-04-09 19:19:00 72 mm[Hg] [facility] Heart rate 2022-04-09 19:19:00 79 /min Un[facility] Body temperature 2022-04-09 19:19:[address] [facility] Respiratory rate 2022-04-09 19:19:00 18 /min [facility] Body height 2022-04-09 19:19:00 182.9 cm [facility] Body weight 2022-04-09 19:19:00 103.42 kg [facility] BMI 2022-04-09 19:19:00 30.92 kg/m2 [facility] Oxygen saturation in Arterial blood by Pulse oximetry 2022-04-09 19:19:00 98 /min [facility] Systolic blood pressure 2022-04-03 01:30:00 158 mm[Hg] [facility] Diastolic blood pressure 2022-04-03 01:30:00 69 mm[Hg] [facility] Heart rate 2022-04-03 01:30:00 60 /min [facility] Respiratory rate 2022-04-03 01:30:00 12 /min [facility] Oxygen saturation in Arterial blood by Pulse oximetry 2022-04-03 01:30:00 95 /min [facility] Body temperature 2022-04-02 21:54:[address] [facility] Body height 2022-04-02 21:54:00 182.9 cm [facility] Body weight 2022-04-02 21:54:00 102.059 kg [facility] BMI 2022-04-02 21:54:00 30.52 kg/m2 [facility] Systolic blood pressure 2022-03-28 19:11:00 100 mm[Hg] [facility] Diastolic blood pressure 2022-03-28 19:11:00 58 mm[Hg] [facility] Heart rate 2022-03-28 19:11:00 58 /min [facility] Body weight 2022-03-28 19:11:00 101.152 kg [facility] BMI 2022-03-28 19:11:00 30.24 kg/m2 [facility] Systolic blood pressure 2022-03-27 16:35:00 114 mm[Hg] [facility] Diastolic blood pressure 2022-03-27 16:35:00 66 mm[Hg] [facility] Heart rate 2022-03-27 16:35:00 45 /min Un[facility] Respiratory rate 2022-03-27 16:35:00 19 /min [facility] Body height 2022-03-27 16:35:00 182.9 cm [facility] Body weight 2022-03-27 16:35:00 101.288 kg [facility] BMI 2022-03-27 16:35:00 30.28 kg/m2 [facility] Oxygen saturation in Arterial blood by Pulse oximetry 2022-03-27 16:35:00 96 /min [facility] Systolic blood pressure 2022-02-01 15:45:00 101 mm[Hg] [facility] Diastolic blood pressure 2022-02-01 15:45:00 53 mm[Hg] [facility] Heart rate 2022-02-01 15:45:00 47 /min [facility] Body temperature 2022-02-01 15:45:[address] [facility] Respiratory rate 2022-02-01 15:45:00 18 /min [facility] Body height 2022-02-01 15:45:00 182.9 cm [facility] Body weight 2022-02-01 15:45:00 103.012 kg [facility] BMI 2022-02-01 15:45:00 30.80 kg/m2 [facility] Oxygen saturation in Arterial blood by Pulse oximetry 2022-02-01 15:45:00 99 /min [facility] Procedures Procedure Date / Time Performed Performing Clinician Source BASIC METABOLIC PANEL (NA, K, CL, CO2, GLUCOSE, BUN, CREATININE, CA) 2023-11-19 18:43:[address] [facility] CBC WITH DIFF 2023-11-19 18:43:00 Yanelis Engle [facility] POCT GLUCOSE (AUTOMATED) 2023-11-16 16:33:[address] [facility] POCT GLUCOSE (AUTOMATED) 2023-11-16 12:42:[address] [facility] BASIC METABOLIC PANEL (NA, K, CL, CO2, GLUCOSE, BUN, CREATININE, CA) 2023-11-16 09:12:[address] [facility] VANCOMYCIN RANDOM LEVEL 2023-11-16 09:12:[address] [facility] CBC WITHOUT DIFF 2023-11-16 09:12:00 Taran Remy [facility] POCT GLUCOSE (AUTOMATED) 2023-11-16 01:08:[address] [facility] POCT GLUCOSE (AUTOMATED) 2023-11-15 21:29:[address] [facility] POCT GLUCOSE (AUTOMATED) 2023-11-15 16:27:[address] [facility] POCT GLUCOSE (AUTOMATED) 2023-11-15 12:31:[address] [facility] MAGNESIUM 2023-11-15 09:05:00 Carlos Escobar [facility] C-REACTIVE PROTEIN 2023-11-15 09:05:[address] [facility] THYROID STIMULATING HORMONE 2023-11-15 09:05:[address] [facility] BASIC METABOLIC PANEL (NA, K, CL, CO2, GLUCOSE, BUN, CREATININE, CA) 2023-11-15 09:05:[address] [facility] VANCOMYCIN TROUGH 2023-11-15 09:05:[address] [facility] SEDIMENTATION RATE 2023-11-15 09:05:[address] [facility] CBC WITH DIFF 2023-11-15 09:05:00 [facility] 2023-11-15 05:58:00 Carlos Escobar [facility] BLOOD CULTURE SCREEN 2023-11-15 03:46:00 Maynor Lovelace [facility] LACTIC ACID WHOLE BLOOD 2023-11-15 03:45:00 Singer [facility] COMP. METABOLIC PANEL (48765) 2023-11-15 03:43:00 Singer [facility] CBC WITH DIFF 2023-11-15 03:43:00 Dago Lovelace [facility] GLYCOSYLATED HEMOGLOBIN (A1C) 2023-11-15 03:43:00 Singer [facility] BLOOD CULTURE SCREEN 2023-11-15 03:30:[address] [facility] XR FOOT 3+ VW LEFT 2023-11-15 02:54:[address] [facility] MEDICAL RELEASE/CLEARANCE FORMS 2023-08-15 06:01:00 Doctor Unassigned, Haigler [facility] EXTERNAL PROVIDER RECORDS 2023-05-14 06:01:00 Do ctor Unassigned, Haigler [facility] ASSIGNMENT OF BENEFITS 2023-05-03 17:36:05 Docto r Unassigned, Haigler [facility] CONSENT/REFUSAL FOR DIAGNOSIS AND TREATMENT 2023-05-03 17:13:03 Doctor Unassigned, Haigler [facility] AUTHORIZATION FOR RELEASE OF PHI 2023-01-31 05:01:00 Doctor Unassigned, Haigler [facility] NOTICE OF PRIVACY PRACTICES 2022-08-12 08:00:44 Doctor Unassigned, Haigler [facility] CONSENT/REFUSAL FOR DIAGNOSIS AND TREATMENT 2022-08-12 07:59:15 Doctor Unassigned, Haigler [facility] CONSENT/REFUSAL FOR DIAGNOSIS AND TREATMENT 2022-07-20 18:44:04 Doctor Unassigned, Haigler [facility] INSURANCE CORRESPONDENCE 2022-06-20 06:01:00 Doc tor Unassigned, Haigler [facility] POCT GLUCOSE (AUTOMATED) 2022-06-17 17:55:00 Rozina, [facility] POCT GLUCOSE (AUTOMATED) 2022-06-17 14:21:00 Rozina, [facility] MAGNESIUM 2022-06-17 10:34:00 Erika Quiles [facility] BASIC METABOLIC PANEL (NA, K, CL, CO2, GLUCOSE, BUN, CREATININE, CA) 2022-06-17 10:34:00 [facility] WITHOUT [facility]FF 2022-06-17 10:34:00 Kb [facility] POCT GLUCOSE (AUTOMATED) 2022-06-17 05:23:00 Rozina, [facility] POCT GLUCOSE (AUTOMATED) 2022-06-17 02:39:00 Rozina, [facility] MAGNESIUM 2022-06-16 19:30:00 Erika Quiles [facility] BASIC METABOLIC PANEL (NA, K, CL, CO2, GLUCOSE, BUN, CREATININE, CA) 2022-06-16 19:30:00 [facility] ([facility]) 2022-06-16 11:35:00 Rozina, [facility] EKG-12 LEAD 2022-06-15 22:18:24 Tanvi Tesfaye [facility] XR CHEST 1 VW 2022-06-15 21:19:13 Tanvi Tesfaye [facility] MAGNESIUM 2022-06-15 21:12:00 Tanvi Tesfaye [facility] TROPONIN I 2022-06-15 21:12:00 Tanvi Tesfaye [facility] THYROID STIMULATING HORMONE 2022-06-15 21:12:[address] [facility] COMP. METABOLIC PANEL (10192) 2022-06-15 21:12:[address] [facility] CBC WITH DIFF 2022-06-15 [facility]:12[facility] 2022-06-15 21:12:[address] [facility] N-TERMINAL PRO-BNP 2022-06-15 21:12:[address] [facility] COVID-19 (ID NOW RAPID TESTING) 2022-06-15 21:12:[address] [facility] POCT GLUCOSE (AUTOMATED) 2022-06-15 19:54:00 Luz [facility] POCT GLUCOSE (AUTOMATED) 2022-06-14 13:45:00 Escobar [facility] ASSIGNMENT OF BENEFITS 2022-06-14 12:53:37 Docto r Unassigned, Haigler [facility] INSURANCE CORRESPONDENCE 2022-05-30 06:01:00 Doc tor Unassigned, Haigler [facility] TROPONIN I 2022-05-14 22:07:00 Alex Keyes [facility] CAROTID DUPLEX BILATERAL - BY VASCULAR LAB 2022-05-14 21:55:[address] [facility] XR CHEST 1 VW 2022-05-14 20:12:12 Alex Keyes [facility] PROTHROMBIN TIME / INR 2022-05-14 20:02:[address] [facility] ACTIVATED PARTIAL THRMPLAS GRICELDA 2022-05-14 20:02:[address] [facility] TROPONIN I 2022-05-14 20:00:00 Alex Keyes [facility] BASIC METABOLIC PANEL (NA, K, CL, CO2, GLUCOSE, BUN, CREATININE, CA) 2022-05-14 20:00:[address] [facility] CBC WITH DIFF 2022-05-14 20:00:00 Alex Keyes [facility] N-TERMINAL PRO-BNP 2022-05-14 20:00:[address] [facility] CONSENT/REFUSAL FOR DIAGNOSIS AND TREATMENT 2022-05-14 19:13:20 Doctor Unassigned, Haigler [facility] POCT GLUCOSE (AUTOMATED) 2022-05-10 18:18:00 Teresa, [facility] POCT GLUCOSE (AUTOMATED) 2022-05-10 14:41:00 Teresa, [facility] PHOSPHORUS 2022-05-10 10:52:00 Tari Pappas [facility] EXTRA TUBE LAV 2022-05-10 10:52:00 [facility]) 2022-05-10 09:43:00 Teresa [facility] POCT GLUCOSE (AUTOMATED) 2022-05-10 06:23:00 Teresa, [facility] POCT GLUCOSE (AUTOMATED) 2022-05-10 01:58:00 Teresa, [facility] POCT GLUCOSE (AUTOMATED) 2022-05-09 22:12:00 Teresa [facility] FL MODIFIED BARIUM SWALLOW 2022-05-09 20:45:[address] [facility] POCT GLUCOSE (AUTOMATED) 2022-05-09 18:08:00 Teresa [facility] POCT GLUCOSE (AUTOMATED) 2022-05-09 18:08:00 Teresa, [facility] POCT GLUCOSE (AUTOMATED) 2022-05-09 14:16:00 Teresa, [facility] POCT GLUCOSE (AUTOMATED) 2022-05-09 14:16:00 Teresa [facility] PHOSPHORUS 2022-05-09 09:55:00 Tari Pappas [facility] MAGNESIUM 2022-05-09 09:55:00 Tari Pappas [facility] BASIC METABOLIC PANEL (NA, K, CL, CO2, GLUCOSE, BUN, CREATININE, CA) 2022-05-09 09:55:[address] [facility] CBC WITH DIFF 2022-05-09 09:55:00 [facility] 2022-05-09 09:55:00 Tari Pappas [facility] MAGNESIUM 2022-05-09 09:55:00 Tari Pappas [facility] BASIC METABOLIC PANEL (NA, K, CL, CO2, GLUCOSE, BUN, CREATININE, CA) 2022-05-09 09:55:[address] [facility] CBC WITH DIFF 2022-05-09 09:55:00 [facility] 2022-05-09 09:52:00 Teresa [facility] POCT GLUCOSE (AUTOMATED) 2022-05-09 09:52:00 Teresa, [facility] POCT GLUCOSE (AUTOMATED) 2022-05-09 05:55:00 Teresa, [facility] POCT GLUCOSE (AUTOMATED) 2022-05-09 05:55:00 Teresa, [facility] POCT GLUCOSE (AUTOMATED) 2022-05-09 02:54:00 Teresa, [facility] POCT GLUCOSE (AUTOMATED) 2022-05-09 02:54:00 Teresa, [facility] POCT GLUCOSE (AUTOMATED) 2022-05-08 22:20:00 Teresa, [facility] POCT GLUCOSE (AUTOMATED) 2022-05-08 22:20:00 Teresa, [facility] PHOSPHORUS 2022-05-08 21:05:00 Nicola Sesay [facility] MAGNESIUM 2022-05-08 21:05:00 Nicola Sesay [facility] BASIC METABOLIC PANEL (NA, K, CL, CO2, GLUCOSE, BUN, CREATININE, CA) 2022-05-08 21:05:[address] [facility] CBC WITH DIFF 2022-05-08 21:05:00 Nicola Sesay Un [facility] GLYCOSYLATED HEMOGLOBIN (A1C) 2022-05-08 21:05:[address] [facility] PHOSPHORUS 2022-05-08 21:05:00 Nicola Sesay [facility] MAGNESIUM 2022-05-08 21:05:00 Nicola Sesay [facility] BASIC METABOLIC PANEL (NA, K, CL, CO2, GLUCOSE, BUN, CREATININE, CA) 2022-05-08 21:05:[address] [facility] CBC WITH DIFF 2022-05-08 21:05:00 Nicola Sesay Un [facility] GLYCOSYLATED HEMOGLOBIN (A1C) 2022-05-08 21:05:[address] [facility] CAROTID ENDARTERECTOMY 2022-05-08 13:17:[address] [facility] CAROTID ENDARTERECTOMY 2022-05-08 13:17:[address] [facility] POCT GLUCOSE (AUTOMATED) 2022-05-08 12:13:[address] [facility] POCT GLUCOSE (AUTOMATED) 2022-05-08 12:13:[address] [facility] HB ABO GROUPING 2022-05-08 12:10:00 Saige Shelley Un [facility] HB ABO GROUPING 2022-05-08 12:10:00 Saige Shelley [facility] ASSIGNMENT OF BENEFITS 2022-05-08 11:33:45 Docto r Unassigned, Haigler [facility] PATIENT QUESTIONNAIRE 2022-04-09 05:01:00 Doctor Unassigned, Haigler [facility] CT ANGIOGRAM NECK 2022-04-05 15:51:55 [facility] 2022-04-02 23:34:00 Brain Pandey [facility] TROPONIN I 2022-04-02 23:34:00 Brain Pandey [facility] COMP. METABOLIC PANEL (89964) 2022-04-02 23:34:[address] [facility] CBC WITH DIFF 2022-04-02 23:34:00 Brain Pandey [facility] URINALYSIS 2022-04-02 23:34:00 Katherin, K Josy [facility] N-TERMINAL PRO-BNP 2022-04-02 23:34:[address] [facility] XR CHEST 1 2022-04-02 22:43:03 Brain Pandey [facility] CONSENT/REFUSAL FOR DIAGNOSIS AND TREATMENT 2022-04-02 21:44:02 Doctor Unassigned, Haigler [facility] DISCLOSURE AND CONSENT, MEDICAL AND SURGICAL PROCEDURES 2022-03-28 05:01:00 Doctor Unassigned, Haigler [facility] DSU PRE-OP 2022-03-28 05:01:00 Doctor Unass igned, Haigler [facility] OPHTHALMOLOGY DIAGNOSTIC TEST 2022-03-28 05:01:00 Doctor Unassigned, Haigler [facility] OU IOL MASTER INTRAOCULAR, BOTH EYES 2022-03-28 00:00:00 Luz [facility] ASSIGNMENT OF BENEFITS 2022-03-27 16:04:09 Docto r Unassigned, Haigler [facility] CONSENT/REFUSAL FOR DIAGNOSIS AND TREATMENT 2022-03-27 16:03:50 Doctor Unassigned, Haigler [facility] INSURANCE CORRESPONDENCE 2022-02-06 05:01:00 Doc tor Unassigned, Haigler [facility] XR CHEST 1 2017-06-23 16:48:[address] [facility] HOSPITAL ADMISSION 2017-03-15 05:01:00 Doctor Un assigned, Haigler [facility] Encounters Start Date/Time End Date/Time Encounter Type Admission Type Attending Clinicians Care Facility Care Department Encounter ID Source 2021-11-22 15:59:55 Outpatient RONALD DAVISON [facility] [id number] [facility] 2017-03-15 00:00:00 2024-07-25 03:36:51 Orders Only Doctor Unassigned, Haigler Doctor Unassigned, Haigler [facility] [id number] [facility] 2017-06-23 00:00:00 2024-07-25 03:28:39 Orders Only Doctor Unassigned, Haigler Doctor Unassigned, Haigler [facility] 1..114 350.1.13.10 [id number] [facility] 2024-06-09 10:15:00 2024-06-09 10:15:00 Outpatient R [facility] [id number] [facility] 2024-03-19 09:00:00 2024-03-19 09:15:00 Mold Inspector Visit Pob, Adc Lab Main Tanvi Cardenas Pob, Adc Lab Main [facility] PROFESSIO [facility] 1..114 350.1.13.10 [id number] [facility] 2024-03-19 09:00:00 2024-03-19 09:00:00 Outpatient TANVI QUINTEROS [facility] [id number] [facility] 2024-01-22 11:40:00 2024-01-22 12:20:00 CMR Jaylin Lee DEV DEV [id number] [address] 2023-11-19 13:14:00 2023-11-19 15:32:00 Emergency X YANELIS ENGLE [facility] [id number] [facility] 2023-11-19 13:14:00 2023-11-19 15:32:00 Emergency Yanelis Engle [facility] 1..114 350.1.13.10 [id number] [facility] 2023-11-18 00:00:00 2023-11-18 14:56:50 Transition of Care Carlos Arriaza 1.0.114 350.1.13.10 [id number] [facility] 2023-11-14 20:59:00 2023-11-16 14:11:00 Outpatient X CARLOS ESCOBAR [facility] [id number] [facility] 2023-11-14 20:59:00 2023-11-16 14:11:00 Hospital Encounter Maynor LovelaceCarlos Kirk [facility] 1.2840.114 350.1.13.10 [id number] [facility] 2023-08-15 00:00:00 2023-08-15 00:00:00 Telephone Mavis Duran [facility] [id number] 350.1.13.10 [id number] [facility] 2023-08-15 00:00:00 2023-08-15 00:00:00 Orders Only Doctor Unassigned, Haigler [facility] 1.2840.114 350.1.13.10 4.2.7.2.[id number] [facility] 2023-05-27 18:30:00 2023-05-27 19:00:00 D2Me Revisit: Gap Closure & Clinical Check-in Trina Dela Cruz 2.16.840. 1.415807. 4.6.28307 [id number] 2.16.840.1. 029996.4.6. [id number] 2[facility] 2023-05-14 00:00:00 2023-05-14 00:00:00 Orders Only Doctor Unassigned, Haigler [facility] 1.2840.114 350.1.13.10 4.2.7.2.[id number] [facility] 2023-05-03 11:22:00 2023-05-03 12:13:00 Emergency X DIANE MENEZES RUST ERT [id number] [facility] 2023-05-03 11:22:00 2023-05-03 12:13:00 Emergency Diane Menezes [facility] 1.840.114 350.1.13.10 4.2.7.2.[id number] [facility] 2023-04-18 00:00:00 2023-04-18 00:00:00 Refill Mavis Duran [facility] 1.840.114 350.1.13.10 4.2.7.2.[id number] [facility] 2023-01-31 00:00:00 2023-01-31 00:00:00 Orders Only Doctor Unassigned, Haigler [facility] 1.840.114 350.1.13.10 4.2.7.2.[id number] [facility] 2023-01-01 12:00:00 2023-01-01 12:00:00 Outpatient DARLEEN RIDER [facility] [id number] [facility] 2022-12-05 00:00:00 2022-12-05 00:00:00 Refill Kelsey Pinto [facility] 1..840.114 350.1.13.10 4.2.7.2.[id number] [facility] 2022-10-16 09:30:00 2022-10-16 09:30:00 Outpatient STEPHON PUENTE [facility] [id number] [facility] 2022-10-02 00:00:00 2022-10-02 00:00:00 Outpatient Melquiadesels_b WILBERTO [facility] [id number] [facility] 2022-10-02 00:00:00 2022-10-02 00:00:00 Outpatient Daniels_b WILBERTO [facility] [id number] [facility] 2022-09-26 14:30:00 2022-09-26 15:30:00 CAV Trina Dela Cruz 2.16.840. 1.715658. 4.6.40321 [id number] 2.16.840.1. 629669.4.6. [id number] [facility] 2022-09-25 00:00:00 2022-09-25 00:00:00 Outpatient Jose De Jesus_b DMG [facility] [id number] [facility] 2022-09-20 00:00:00 2022-09-20 00:00:00 Refill Darleen Sawant [facility] 1..840.114 350.1.13.10 4.2.7.2.[id number] [facility] 2022-09-03 00:00:00 2022-09-03 00:00:00 Telephone Monae [facility] 1.2.840.114 350.1.13.10 4.2.7.2.[id number] [facility] 2022-08-29 00:00:00 2022-08-29 00:00:00 Refill Monae [facility] 1..840.114 350.1.13.10 4.2.7.2.[id number] [facility] 2022-08-28 15:30:00 2022-08-28 15:30:00 Outpatient STEPHON PUENTE [facility] [id number] [facility] 2022-08-12 02:08:00 2022-08-12 03:19:00 Emergency DIANE CHEN RUST ERT [id number] [facility] 2022-08-12 02:08:00 2022-08-12 03:19:00 Emergency Diane Menezes [facility] 1.2.840.114 350.1.13.10 4.2.7.2.[id number] [facility] 2022-08-08 13:00:00 2022-08-08 13:00:00 Outpatient R MAVIS DURAN [facility] [id number] [facility] 2022-07-20 13:00:00 2022-07-20 14:29:44 Outpatient R [facility]Z [facility] [id number] [facility] 2022-07-20 13:00:00 2022-07-20 14:29:44 Office Visit uLz [facility] 1..840.114 350.1.13.10 4.2.7.2.[id number] [facility] 2022-07-20 00:00:00 2022-07-20 00:00:00 Orders Only Doctor Unassigned, Haigler [facility] 1.2.840.114 350.1.13.10 4.2.7.2.[id number] [facility] 2022-07-19 14:30:00 2022-07-19 14:30:00 Outpatient KELSEY LEE [facility] [id number] [facility] 2022-07-11 00:00:00 2022-07-11 00:00:00 Telephone Darleen Sawant [facility] 1..840.114 350.1.13.10 4.2.7.2.[id number] [facility] 2022-07-05 14:30:00 2022-07-05 14:30:00 Outpatient KELSEY LEE [facility] [id number] [facility] 2022-07-04 00:00:00 2022-07-04 00:00:00 Kelsey Sams [facility] 1.2.840114 350.1.13.10 4.2.7.2.[id number] [facility] 2022-07-02 09:00:00 2022-07-02 09:00:00 Outpatient R CASA TRIPLETT SHIWAN [facility] [id number] [facility] 2022-06-28 13:30:00 2022-06-28 14:38:40 Outpatient R JOSE E MOORE [facility] [id number] [facility] 2022-06-28 00:00:00 2022-06-28 00:00:00 Refill Darleen Sawant [facility] 1.84114 350.1.13.10 4.2.7.2.[id number] [facility] 2022-06-26 14:30:00 2022-06-26 15:41:18 Outpatient [facility] [id number] [facility] 2022-06-26 14:30:00 2022-06-26 15:41:18 Office Visit Escobar [facility] 1..114 350.1.13.10 4.2.7.2.[id number] [facility] 2022-06-26 00:00:00 2022-06-26 00:00:00 [facility] 1..114 350.1.13.10 4.2.7.2.[id number] [facility] 2022-06-21 00:00:00 2022-06-21 00:00:00 Telephone Kelsey Pinto [facility] 1.114 350.1.13.10 4.2.7.2.[id number] [facility] 2022-06-20 00:00:00 2022-06-20 00:00:00 Orders Only Doctor Unassigned, Haigler [facility] 1.0.114 350.1.13.10 4.2.7.2.[id number] [facility] 2022-06-19 00:00:00 2022-06-19 00:00:00 Transition of Care Hannah White ANTONY DIETZ 1..114 350.1.13.10 4.2.7.2.[id number] [facility] 2022-06-15 14:52:00 2022-06-17 13:07:00 Inpatient X [facility]EN [facility] [id number] [facility] 2022-06-15 14:52:00 2022-06-17 13:07:00 Hospital Encounter Tanvi Tesfaye, Riley Chatterjee, [facility] ([facility]) 1..114 350.1.13.10 4.2.7.2.[id number] [facility] 2022-06-15 13:45:00 2022-06-15 14:00:00 Office Visit Stephon Escobar [facility] 1..114 350.1.13.10 4.2.7.2.[id number] [facility] 2022-06-15 13:45:00 2022-06-15 13:45:00 Outpatient R STEPHON ESCOBAR [facility] [id number] [facility] 2022-06-15 00:00:00 2022-06-15 00:00:00 Clinic Assessment Stephon Escobar [facility] 1..114 350.1.13.10 4.2.7.2.[id number] [facility] 2022-06-14 06:53:00 2022-06-14 12:36:00 Outpatient R STEPHON ESCOBAR [facility] [id number] [facility] 2022-06-14 06:53:00 2022-06-14 12:36:00 Hospital Encounter Stephon Escobar [facility] ([facility] 1.2.840.114 350.1.13.10 4.2.7.2.[id number] [facility] 2022-06-14 00:00:00 2022-06-14 00:00:00 Orders Only Doctor Unassigned, Haigler [facility] 1.2.840.114 350.1.13.10 4.2.7.2.[id number] [facility] 2022-06-13 00:00:00 2022-06-13 00:00:00 Outpatient DMG DM [id number] [facility] 2022-06-11 00:00:00 2022-06-11 00:00:00 Patient Secure Msg Doctor Unassigned, Haigler [facility] 1.2.840.114 350.1.13.10 4.2.7.2.[id number] [facility] 2022-05-30 00:00:00 2022-05-30 00:00:00 Orders Only Doctor Unassigned, Haigler [facility] 1.2.840.114 350.1.13.10 4.2.7.2.[id number] [facility] 2022-05-29 00:00:00 2022-05-29 00:00:00 Patient Secure Msg Doctor Unassigned, Haigler [facility] 1.2.840.114 350.1.13.10 4.2.7.2.[id number] [facility] 2022-05-14 13:19:00 2022-05-14 17:59:00 Emergency X ALEX KEYES [facility] [id number] [facility] 2022-05-14 13:19:00 2022-05-14 17:59:00 Emergency Alex Keyes C [facility] 1.2.840.114 350.1.13.10 4.2.7.2.[id number] [facility] 2022-05-11 00:00:00 2022-05-11 00:00:00 Transition of Care Carlos Arriaza ANTONY DIETZ 1.2.840.114 350.1.13.10 4.2.7.2.[id number] [facility] 2022-05-08 05:35:00 2022-05-10 15:28:00 Inpatient R [facility] [id number] [facility] 2022-05-08 05:35:00 2022-05-10 15:28:00 Hospital Encounter [facility] 1.2.840.114 350.1.13.10 4.2.7.2.[id number] [facility] 2022-05-08 07:00:00 2022-05-08 11:16:00 Surgery [facility] 1.2.840.114 350.1.13.10 4.2.7.2.[id number] [facility] 2022-05-08 00:00:00 2022-05-08 00:00:00 Orders Only Doctor Unassigned, Haigler [facility] 1.2.840.114 350.1.13.10 4.2.7.2.[id number] [facility] 2022-05-07 10:30:00 2022-05-07 11:17:17 Outpatient MAVIS SAM [facility] [id number] [facility] 2022-05-07 10:30:00 2022-05-07 11:17:17 Office Visit Mavis Duran [facility] 1.2.840.114 350.1.13.10 4.2.7.2.[id number] [facility] 2022-04-26 00:00:00 2022-04-26 00:00:00 Refill Kelsey Pinto Mathewvidya [facility] 1.2.840.114 350.1.13.10 4.2.7.2.[id number] [facility] 2022-04-26 00:00:00 2022-04-26 00:00:00 Refill Mavis Duran [facility] 1.2.840.114 350.1.13.10 4.2.7.2.[id number] [facility] 2022-04-26 00:00:00 2022-04-26 00:00:00 Refill Lay Maradiaga [facility] 1.2.840.114 350.1.13.10 4.2.7.2.[id number] [facility] 2022-04-19 00:00:00 2022-04-19 00:00:00 Telephone Jose E Moore [facility] 1.2.840.114 350.1.13.10 4.2.7.2.[id number] [facility] 2022-04-10 12:00:00 2022-04-10 12:00:00 Outpatient DARLEEN RIDER [facility] [id number] [facility] 2022-04-09 14:15:00 2022-04-09 14:30:00 Office Visit Jurgen Jose Guadalupe [facility] 1..840.114 350.1.13.10 4.2.7.2.[id number] [facility] 2022-04-09 14:15:00 2022-04-09 14:15:00 Outpatient JOSE GUADALUPE RODRÍGUEZ SEPEHR [facility] [id number] [facility] 2022-04-09 00:00:00 2022-04-09 00:00:00 Orders Only Doctor Unassigned, Haigler [facility] 1..840.114 350.1.13.10 4.2.7.2.[id number] [facility] 2022-04-05 09:42:26 2022-04-05 23:59:00 Outpatient JOSE E BYRD [facility] [id number] [facility] 2022-04-05 09:42:26 2022-04-05 23:59:00 Hospital Encounter Jose E Moore [facility] 1..840.114 350.1.13.10 4.2.7.2.[id number] [facility] 2022-04-04 00:00:00 2022-04-04 00:00:00 Lay Addison [facility] 1..840.114 350.1.13.10 4.2.7.2.[id number] [facility] 2022-04-03 08:40:00 2022-04-03 08:40:00 Outpatient KARRI MORGAN [facility] [id number] [facility] 2022-04-02 16:58:00 2022-04-02 21:02:00 Emergency X Brain PANDEY RUST ERT [id number] [facility] 2022-04-02 16:58:00 2022-04-02 21:02:00 Emergency Katherin, K Josy [facility] 1.2840.114 350.1.13.10 4.2.7.2.[id number] [facility] 2022-04-01 00:00:00 2022-04-01 00:00:00 Patient Secure Msg Doctor Unassigned, Haigler [facility] 1.2840.114 350.1.13.10 4.2.7.2.[id number] [facility] 2022-03-29 16:15:00 2022-03-29 16:31:22 Outpatient JOSE E BYRD [facility] [id number] [facility] 2022-03-29 00:00:00 2022-03-29 00:00:00 Telephone Katerin Moffett [facility] 1.840.114 350.1.13.10 4.2.7.2.[id number] [facility] 2022-03-29 00:00:00 2022-03-29 00:00:00 Patient Secure Msg Doctor Unassigned, Haigler [facility] 1.20.114 350.1.13.10 4.2.7.2.[id number] [facility] 2022-03-28 13:45:00 2022-03-28 16:18:52 Outpatient STEPHON PUENTE [facility] [id number] [facility] 2022-03-28 13:45:00 2022-03-28 16:18:52 Office Visit Stephon Escobar [facility] 1.284.114 350.1.13.10 4.2.7.2.[id number] [facility] 2022-03-27 11:00:00 2022-03-27 11:59:21 Outpatient CASA MERIDA SHIWAN [facility] [id number] [facility] 2022-03-27 11:00:00 2022-03-27 11:59:21 [facility] 1..840.114 350.1.13.10 4.2.7.2.[id number] [facility] 2022-03-27 00:00:00 2022-03-27 00:00:00 Orders Only Doctor Unassigned, Haigler [facility] 1.84.114 350.1.13.10 4.2.7.2.[id number] [facility] 2022-03-22 00:00:00 2022-03-22 00:00:00 Patient Secure Msg Kelsey [facility] 1..840.114 350.1.13.10 4.2.7.2.[id number] [facility] 2022-03-02 00:00:00 2022-03-02 00:00:00 Patient Secure Msg Doctor Unassigned, Haigler [facility] 1.84.114 350.1.13.10 4.2.7.2.[id number] [facility] 2022-02-16 13:50:59 2022-02-16 13:55:00 Outpatient MAVIS SAM [facility] [id number] [facility] 2022-02-16 13:50:59 2022-02-16 13:55:00 Outpatient MAVIS SAM [facility] [id number] [facility] 2022-02-06 00:00:00 2022-02-06 00:00:00 Orders Only Doctor Unassigned, Haigler [facility] 1.840.114 350.1.13.10 4.2.7.2.[id number] [facility] 2022-02-01 10:30:00 2022-02-01 11:14:15 Outpatient R MAVIS DURAN [facility] [id number] [facility] 2022-02-01 10:30:00 2022-02-01 11:14:15 Office Visit Mavis Duran [facility] 1.2.840.114 350.1.13.10 4.2.7.2.[id number] [facility] 2022-02-01 10:30:00 2022-02-01 11:14:15 Outpatient R MAVIS DURAN [facility] [id number] [facility] 2022-01-26 15:30:00 2022-01-26 15:30:00 Outpatient R STEPHON ESCOBAR [facility] [id number] [facility] 2022-01-26 00:00:00 2022-01-26 00:00:00 Refill [facility]IS[facility] 1.2.840.114 350.1.13.10 4.2.7.2.[id number] [facility] 2022-01-26 00:00:00 2022-01-26 00:00:00 Refill Mavis Duran [facility] 1.2.840.114 350.1.13.10 4.2.7.2.[id number] [facility] 2022-01-23 00:00:00 2022-01-23 00:00:00 Telephone Mavis Duran [facility] 1.2.840.114 350.1.13.10 4.2.7.2.[id number] [facility] 2022-01-23 00:00:00 2022-01-23 00:00:00 Telephone Mavis Duran [facility] 1..840.114 350.1.13.10 4.2.7.2.[id number] [facility] 2022-01-10 15:07:00 2022-01-10 23:59:00 Outpatient R MELANIE SANCHEZ [facility] [id number] [facility] 2022-01-10 15:45:00 2022-01-10 16:00:00 Office Visit Melanie Sanchez [facility] 1.2.840.114 350.1.13.10 4.2.7.2.[id number] [facility] 2022-01-10 15:45:00 2022-01-10 15:45:00 Outpatient R MELANIE SANCHEZ [facility] [id number] [facility] 2022-01-09 13:15:00 2022-01-09 13:15:00 Outpatient STEPHON PUENTE [facility] [id number] [facility] 2022-01-04 00:00:00 2022-01-04 00:00:00 Patient Secure Msg Doctor Unassigned, Haigler [facility] 1..840.114 350.1.13.10 4.2.7.2.[id number] [facility] 2022-01-03 17:05:00 2022-01-03 19:16:00 Emergency X DIANE MENEZES [facility] [id number] [facility] 2022-01-03 17:05:00 2022-01-03 19:16:00 Emergency Diane Menezes [facility] 1.2.840.114 350.1.13.10 4.2.7.2.[id number] [facility] 2022-01-03 00:00:00 2022-01-03 00:00:00 Orders Only Doctor Unassigned, Haigler [facility] 1.84.114 350.1.13.10 4.2.7.2.[id number] [facility] 2021-12-28 00:00:00 2021-12-28 00:00:00 Refill Lay Maradiaga [facility] 1.84114 350.1.13.10 4.2.7.2.[id number] [facility] 2021-12-28 00:00:00 2021-12-28 00:00:00 [facility] 1.84.114 350.1.13.10 4.2.7.2.[id number] [facility] 2021-12-19 00:00:00 2021-12-19 00:00:00 Refill Kelsey Pitno [facility] 1.84.114 350.1.13.10 4.2.7.2.[id number] [facility] 2021-12-13 08:48:00 2021-12-13 10:50:00 Outpatient R OG ESCOBAR RUST GIE [id number] [facility] 2021-12-13 08:48:00 2021-12-13 10:50:00 Hospital Encounter Og Escobar [facility] 1.84.114 350.1.13.10 4.2.7.2.[id number] [facility] 2021-12-13 09:00:00 2021-12-13 09:45:00 Surgery Og Escobar [facility] 1..114 350.1.13.10 4.2.7.2.[id number] [facility] 2021-12-13 00:00:00 2021-12-13 00:00:00 Orders Only Doctor Unassigned, Haigler [facility] 1..114 350.1.13.10 4.2.7.2.[id number] [facility] 2021-12-12 07:30:00 2021-12-12 07:45:00 Laboratory Only Only, Adc Test Edgard Escobarhif [facility] 1.114 350.1.13.10 4.2.7.2.[id number] [facility] 2021-12-12 07:30:00 2021-12-12 07:30:00 Outpatient R OG ESCOBAR [facility] [id number] [facility] 2021-12-05 00:00:00 2021-12-05 00:00:00 Telephone Mavis Duran [facility] 1.114 350.1.13.10 4.2.7.2.[id number] [facility] 2021-11-29 09:37:00 2021-11-29 10:00:00 Outpatient R RONALD CRUZ [facility] [id number] [facility] 2021-11-29 09:37:00 2021-11-29 10:00:00 Hospital Encounter Ronald Cruz [facility] 1.114 350.1.13.10 4.2.7.2.[id number] [facility] 2021-11-29 09:20:00 2021-11-29 09:40:00 Surgery Mckayla Palacios [facility] 1.114 350.1.13.10 4.2.7.2.[id number] [facility] 2021-11-29 00:00:00 2021-11-29 00:00:00 Orders Only Doctor Unassigned, Haigler [facility] 1.114 350.1.13.10 4.2.7.2.[id number] [facility] 2021-11-27 00:00:00 2021-11-27 00:00:00 Refill Mavis Duran [facility] 1.84.114 350.1.13.10 4.2.7.2.[id number] [facility] 2021-11-23 14:00:00 2021-11-23 14:53:03 Outpatient R CASA TRIPLETT SHIMOMickie [facility] [id number] [facility] 2021-11-23 14:00:00 2021-11-23 14:53:03 Outpatient R CASA TRIPLETT SHIMOMickie [facility] [id number] [facility] 2021-11-23 14:00:00 2021-11-23 14:53:03 Office Visit Carissa Triplettilmickie [facility] 1.840.114 350.1.13.10 4.2.7.2.[id number] [facility] 2021-11-23 14:00:00 2021-11-23 14:00:00 Outpatient R CASA TRIPLETT SHIMOMickie [facility] [id number] [facility] 2021-11-22 00:00:00 2021-11-22 00:00:00 [facility] 1..840.114 350.1.13.10 4.2.7.2.[id number] [facility] 2021-11-22 00:00:00 2021-11-22 00:00:00 Patient Secure Msg Doctor Unassigned, Haigler [facility] 1.114 350.1.13.10 4.2.7.2.[id number] [facility] 2021-11-22 00:00:00 2021-11-22 00:00:00 Patient Secure Msg Doctor Unassigned, Haigler [facility] 1.114 350.1.13.10 4.2.7.2.[id number] [facility] 2021-11-22 00:00:00 2021-11-22 00:00:00 Patient Secure Msg Doctor Unassigned, Haigler [facility] 1.114 350.1.13.10 4.2.7.2.[id number] [facility] 2021-11-08 20:21:00 2021-11-08 22:41:00 Emergency X DIANE MENEZES [facility] [id number] [facility] 2021-11-08 20:21:00 2021-11-08 22:41:00 Emergency Diane Menezes [facility] 1.114 350.1.13.10 4.2.7.2.[id number] [facility] 2021-10-18 00:00:00 2021-10-18 00:00:00 Kelsey Sams [facility] 1..114 350.1.13.10 4.2.7.2.[id number] [facility] 2021-10-17 00:00:00 2021-10-17 00:00:00 Telephone Lay Maradiaga [facility] 1.2.840.114 350.1.13.10 4.2.7.2.[id number] [facility] 2021-10-16 00:00:00 2021-10-16 00:00:00 Refill Kelsey Pinto [facility] 1.2.840.114 350.1.13.10 4.2.7.2.[id number] [facility] 2021-10-16 00:00:00 2021-10-16 00:00:00 Refill [facility] 1.2.840.114 350.1.13.10 4.2.7.2.[id number] [facility] 2021-09-27 00:00:00 2021-09-27 00:00:00 Refill Darleen Sawant [facility] 1.2.840.114 350.1.13.10 4.2.7.2.[id number] [facility] 2021-09-22 00:00:00 2021-09-22 00:00:00 Telephone Rio Gonzalez [facility] 1.2.840.114 350.1.13.10 4.2.7.2.[id number] [facility] 2021-09-12 13:00:00 2021-09-12 13:00:00 Outpatient STEPHON PUENTE [facility] [id number] [facility] 2021-09-12 13:00:00 2021-09-12 13:00:00 Outpatient STEPHON PUENTE [facility] [id number] [facility] 2021-09-07 13:00:00 2021-09-07 13:06:22 Outpatient R SAWANTDARLEEN [facility] [id number] [facility] 2021-09-07 13:00:00 2021-09-07 13:06:22 Nurse Visit Nurse, Gilberto Wharton/Diab Jese [facility] 1..840.114 350.1.13.10 4.2.7.2.[id number] [facility] 2021-09-07 00:00:00 2021-09-07 00:00:00 Orders Only Doctor Unassigned, Haigler [facility] 1.840.114 350.1.13.10 4.2.7.2.[id number] [facility] 2021-09-06 16:00:00 2021-09-06 16:15:00 Office Visit Kelsey Pinto [facility] 1.840.114 350.1.13.10 4.2.7.2.[id number] [facility] 2021-09-06 16:00:00 2021-09-06 16:00:00 Outpatient R KELSEY PINTO [facility] [id number] [facility] 2021-08-04 00:00:00 2021-08-04 00:00:00 Patient Secure Lay Sandoval [facility] 1..840.114 350.1.13.10 4.2.7.2.[id number] [facility] 2021-08-02 10:47:41 2021-08-02 23:59:00 Outpatient R CASA TRIPLETT SHIMOMickie [facility] [id number] [facility] 2021-08-02 10:47:41 2021-08-02 23:59:00 Hospital Encounter Casa Triplett [facility] 1.2840.114 350.1.13.10 4.2.7.2.[id number] [facility] 2021-08-01 13:30:00 2021-08-01 14:09:36 Outpatient R LAY MARADIAGA [facility] [id number] [facility] 2021-07-31 00:00:00 2021-07-31 00:00:00 [facility] 1.84.114 350.1.13.10 4.2.7.2.[id number] [facility] 2021-07-27 00:00:00 2021-07-27 00:00:00 Telephone Og Escobar [facility] 1.84.114 350.1.13.10 4.2.7.2.[id number] [facility] 2021-07-27 00:00:00 2021-07-27 00:00:00 Telephone Og Escobar [facility] 1..114 350.1.13.10 4.2.7.2.[id number] [facility] 2021-07-21 14:00:00 2021-07-21 14:40:19 Outpatient R CASA TRIPLETT SHIWAN [facility] [id number] [facility] 2021-07-21 14:00:00 2021-07-21 14:40:19 Office Visit Casa Triplett [facility] PROFESSIO NAL BUILDING 1.84114 350.1.13.10 4.2.7.2.[id number] [facility] 2021-07-20 07:08:04 2021-07-20 07:08:04 Anesthesia Event Avani Alvarez [facility] 1..114 350.1.13.10 4.2.7.2.[id number] [facility] 2021-07-19 08:55:00 2021-07-19 09:21:00 Outpatient OG PUENTE RUST GIL[facility] [place] [id number] [facility] 2021-07-19 08:55:00 2021-07-19 09:21:00 Hospital Encounter Og Escobar [facility] 1.2.840.114 350.1.13.10 4.2.7.2.[id number] [facility] 2021-07-19 08:55:00 2021-07-19 09:21:00 Hospital Encounter Og Escobar 1.2.840.1 80305.1.1 3.104.2.7 .3.201277 .[id number] [facility] 2021-07-19 08:55:00 2021-07-19 09:21:00 Outpatient Joanie ESCOBAREDGARD RODRIGUEZHIF RUST [facility] [place] [id number] [facility] 2021-07-17 10:45:00 2021-07-17 11:00:00 Laboratory Only Tanvi Cardenas Kashif Only, Adc Test 1.2.840.1 19476.1.1 3.104.2.7 .3.356574 .[id number] [facility] 2021-07-17 10:45:00 2021-07-17 10:45:00 Outpatient Joanie LUZEDGARDOG [facility] [id number] [facility] 2021-07-07 11:00:00 2021-07-07 11:00:00 Outpatient LAY FROST [facility] [id number] [facility] 2021-07-07 00:00:00 2021-07-07 00:00:00 Kayla [facility]into, [facility] 1.2.840.114 350.1.13.10 4.2.7.2.[id number] [facility] 2021-07-07 00:00:00 2021-07-07 00:00:00 Refill Darleen Sawant [facility] BUILDING 1.2.840.114 350.1.13.10 4.2.7.2.[id number] [facility] 2021-07-07 00:00:00 2021-07-07 00:00:00 Refill GaryKelsey finch Edvidya 1.2.840.1 77522.1.1 3.104.2.7 .3.601913 .[id number] [facility] 2021-07-07 00:00:00 2021-07-07 00:00:00 Refill Darleen Sawant 1.2.840.1 02314.1.1 3.104.2.7 .3.330845 .[id number] [facility] 2021-07-04 00:00:00 2021-07-04 00:00:00 Refill Mavis Duran [facility] BUILDING 1.2.840.114 350.1.13.10 4.2.7.2.[id number] [facility] 2021-07-04 00:00:00 2021-07-04 00:00:00 Refill Jude Sendil K.[facility]. 1.2.840.1 49899.1.1 3.104.2.7 .3.903202 .[id number] [facility] 2021-06-19 00:00:00 2021-06-19 00:00:00 Telephone Og Escobar [facility] 1.2.840.114 350.1.13.10 4.2.7.2.[id number] [facility] 2021-06-19 00:00:00 2021-06-19 00:00:00 Telephone Og Escobar 1.2.840.1 98576.1.1 3.104.2.7 .3.473828 .[id number] [facility] 2021-06-15 14:30:00 2021-06-15 15:00:00 Office Visit Og Escobar [facility] 1.2.840.114 350.1.13.10 4.2.7.2.[id number] [facility] 2021-06-15 14:30:00 2021-06-15 15:00:00 Office Visit Og Escobar 1.2.840.1 72288.1.1 3.104.2.7 .3.809991 .[id number] [facility] 2021-06-15 14:30:00 2021-06-15 14:30:00 Outpatient R OG ESCOBAR [facility] [id number] [facility] 2021-06-15 00:00:00 2021-06-15 00:00:00 Travel 1.2.840.1 28057.1.1 3.104.2.7 .3.400577 .8 1.2.840.114 350.1.13.10 4.2.7.3.[id number] [facility] 2021-06-12 07:27:00 2021-06-12 12:04:00 Emergency X OWEN CHENEY RUST ERT [id number] [facility] 2021-06-12 07:27:00 2021-06-12 12:04:00 Emergency Owen Cheney [facility] 1.2.840.114 350.1.13.10 4.2.7.2.[id number] [facility] 2021-06-12 07:27:00 2021-06-12 12:04:00 Emergency X OWEN CHENEY RUST ERT [id number] [facility] 2021-06-12 07:27:00 2021-06-12 12:04:00 Emergency Owen Cheney 1.2.840.1 33215.1.1 3.104.2.7 .3.996047 .[id number] [facility] 2021-06-12 00:00:00 2021-06-12 00:00:00 Travel 1.2.840.1 01957.1.1 3.104.2.7 .3.636722 .8 1.2.840.114 350.1.13.10 4.2.7.3.[id number] [facility] 2021-05-08 00:00:00 2021-05-08 00:00:00 Kelsey Sams [facility] BUILD[facility] 1.840.114 350.1.13.10 4.2.7.2.[id number] [facility] 2021-05-08 00:00:00 2021-05-08 00:00:00 Kelsey Sams 1.2.840.1 79579.1.1 3.104.2.7 .3.213724 .[id number] [facility] 2021-05-02 00:00:00 2021-05-02 00:00:00 Kelsey Sams [facility] OFF[facility] BUILD[facility] 1.2840.114 350.1.13.10 4.2.7.2.[id number] [facility] 2021-05-02 00:00:00 2021-05-02 00:00:00 Kelsey Sams 1.2.840.1 27255.1.1 3.104.2.7 .3.027180 .[id number] [facility] 2021-04-30 16:02:27 2021-04-30 23:59:00 Outpatient R SANCHEZ MELANIE [facility] [id number] [facility] 2021-04-30 16:02:27 2021-04-30 23:59:00 Hospital Encounter Melanie Sanchez [facility] 1.2.840.114 350.1.13.10 4.2.7.2.[id number] [facility] 2021-04-30 16:02:27 2021-04-30 23:59:00 Hospital Encounter Melanie Sanchez 1.2.840.1 55900.1.1 3.104.2.7 .3.044388 .[id number] [facility] 2021-04-28 14:00:00 2021-04-28 15:44:42 Office Visit Casa Triplett 1.2.840.1 98523.1.1 3.104.2.7 .3.834484 .[id number] [facility] 2021-04-28 13:42:29 2021-04-28 14:12:29 Office Visit Casa Triplett [facility] 1.2.840.114 350.1.13.10 4.2.7.2.[id number] [facility] 2021-04-28 14:00:00 2021-04-28 14:00:00 Outpatient R CASA TRIPLETT SHIWAN [facility] [id number] [facility] 2021-04-28 14:00:00 2021-04-28 14:00:00 Outpatient R CASA TRIPLETT SHIWAN [facility] [id number] [facility] 2021-04-28 00:00:00 2021-04-28 00:00:00 Travel 1.2.840.1 20626.1.1 3.104.2.7 .3.995966 .8 1.2.840.114 350.1.13.10 4.2.7.3[id number] [facility] 2021-04-26 14:15:00 2021-04-26 14:15:00 Outpatient R STEPHANI ALCANTARA [facility] [id number] [facility] 2021-04-25 13:00:00 2021-04-25 13:00:00 Outpatient R GEORGIA FOSTER [facility] [id number] [facility] 2021-04-19 13:30:00 2021-04-19 14:17:56 Outpatient R ZEINAB ROSA [facility] [id number] [facility] 2021-04-19 13:30:00 2021-04-19 14:17:56 Office Visit Zeinab Rosa 1.2.840.1 15635.1.1 3.104.2.7 .3.368210 .[id number] [facility] 2021-04-19 13:29:47 2021-04-19 14:17:56 Office Visit Zeinab Rosa [facility] 1.2.840.114 350.1.13.10 4.2.7.2.[id number] [facility] 2021-04-19 00:00:00 2021-04-19 00:00:00 Travel 1.2.840.1 05372.1.1 3.104.2.7 .3.180811 .8 1.2.840.114 350.1.13.10 4.2.7.3.[id number] [facility] 2021-04-17 00:00:00 2021-04-17 00:00:00 Telephone Casa Triplett [facility] 1.2.840.114 350.1.13.10 4.2.7.2.[id number] [facility] 2021-04-17 00:00:00 2021-04-17 00:00:00 Telephone TriplettCarissamelvina [facility] 1..840.114 350.1.13.10 4.2.7.2.[id number] [facility] 2021-04-14 08:45:00 2021-04-14 09:03:59 Outpatient R MELANIE SANCHEZ [facility] [id number] [facility] 2021-04-14 08:45:00 2021-04-14 09:03:59 Outpatient R MELANIE SANCHEZ [facility] [id number] [facility] 2021-04-14 08:41:49 2021-04-14 09:03:59 Office Visit Melanie Sanchez [facility]ILD[facility] 1..840.114 350.1.13.10 4.2.7.2.[id number] [facility] 2021-04-14 08:45:00 2021-04-14 08:45:00 Outpatient R MELANIE SANCHEZ [facility] [id number] [facility] 2021-04-14 00:00:00 2021-04-14 00:00:00 Telephone Lay Maradiaga [facility] 1..840.114 350.1.13.10 4.2.7.2.[id number] [facility] 2021-04-12 16:00:00 2021-04-12 16:40:42 Outpatient R VERA MARTIN [facility] [id number] [facility] 2021-04-12 15:48:10 2021-04-12 16:40:42 Office Visit Vera Martin [facility] 1..840.114 350.1.13.10 4.2.7.2.[id number] [facility] 2021-04-12 16:00:00 2021-04-12 16:00:00 Outpatient VERA MOSLEY [facility] [id number] [facility] 2021-04-12 10:15:00 2021-04-12 10:15:00 Outpatient KELSEY LEE [facility] [id number] [facility] 2021-04-11 00:00:00 2021-04-11 00:00:00 Telephone Casa Triplett [facility] PROFESSIO NAL BUILDING 1..840.114 350.1.13.10 4.2.7.2.[id number] [facility] 2021-04-10 00:00:00 2021-04-10 00:00:00 Kelsey Sams [facility] 1..840.114 350.1.13.10 4.2.7.2.[id number] [facility] 2021-04-07 13:34:00 2021-04-07 15:59:00 Emergency X OWEN CHENEY RUST ERT [id number] [facility] 2021-04-07 13:34:00 2021-04-07 15:59:00 Emergency Shravan Owen [facility] 1.84.114 350.1.13.10 4.2.7.2.[id number] [facility] 2021-04-06 09:43:44 2021-04-06 11:13:44 Mold Inspector Visit Therapist, [facility] Jason Rodriguez [facility] 1.840.114 350.1.13.10 4.2.7.2.[id number] [facility] 2021-04-06 10:00:00 2021-04-06 10:00:00 Outpatient R RODRIGUEZ JASON [facility] [id number] [facility] 2021-04-04 00:00:00 2021-04-04 00:00:00 Refill Kelsey Pinto [facility] hern[facility]dez Medical Office Building 1.84114 350.1.13.10 4.2.7.2.[id number] [facility] 2021-04-04 00:00:00 2021-04-04 00:00:00 [facility]ILD[facility] 1.114 350.1.13.10 4.2.7.2.[id number] [facility] 2021-04-03 08:37:32 2021-04-03 08:52:32 Laboratory Only Only, Adc Test Tanvi Cardenas, [facility] 1.114 350.1.13.10 4.2.7.2.[id number] [facility] 2021-04-03 08:45:00 2021-04-03 08:45:00 Outpatient R [facility] [id number] [facility] 2021-03-31 00:00:00 2021-03-31 00:00:00 Telephone Kelsey Pinto [facility] Building 1.114 350.1.13.10 4.2.7.2.[id number] [facility] 2021-03-28 15:28:30 2021-03-28 15:43:30 Office Visit Kelsey Pinto [facility] hern[facility]dez Medical Office Building 1.114 350.1.13.10 4.2.7.2.[id number] [facility] 2021-03-28 09:36:22 2021-03-28 09:51:22 Mold Inspector Visit Tech, [facility] Sleep Lab Gayle Barragan [facility] 1.840.114 350.1.13.10 4.2.7.2.[id number] [facility] 2021-03-28 09:00:00 2021-03-28 09:00:00 Outpatient R GAYLE BARRAGAN STRANJSamara [facility] [id number] [facility] 2021-03-27 00:00:00 2021-03-27 00:00:[address] [facility] Building One 1.84.114 350.1.13.10 4.2.7.2.[id number] [facility] 2021-03-24 08:45:21 2021-03-24 09:00:21 Laboratory Only Only, [facility] Test Yung Gayle [facility] 1..114 350.1.13.10 4.2.7.2.[id number] [facility] 2021-03-24 09:00:00 2021-03-24 09:00:00 Outpatient R [facility] [id number] [facility] 2021-03-24 00:00:00 2021-03-24 00:00:00 Orders Only Doctor Unassigned, Haig[place] [facility] 1..114 350.1.13.10 4.2.7.2.[id number] [facility] 2021-03-21 11:30:00 2021-03-21 11:30:00 Outpatient R LAY MARADIAGA [facility] [id number] [facility] 2021-03-10 00:00:00 2021-03-10 00:00:00 Telephone Lay Maradiaga [facility] Building 1..840.114 350.1.13.10 4.2.7.2.[id number] [facility] 2021-03-07 13:53:23 2021-03-07 15:07:18 Office Visit Lya Maradiaga [facility] Building 1.840.114 350.1.13.10 4.2.7.2.[id number] [facility] 2021-03-07 14:00:00 2021-03-07 14:00:00 Outpatient R JESE [facility] [id number] [facility] 2021-03-06 00:00:00 2021-03-06 00:00:00 Refill Mavis Duran [facility] nal Building 1..840.114 350.1.13.10 4.2.7.2.[id number] [facility] 2021-03-06 00:00:00 2021-03-06 00:00:00 Refill Kelsey Pinto [facility] Office Building One 1..840.114 350.1.13.10 4.2.7.2.[id number] [facility] 2021-03-06 00:00:00 2021-03-06 00:00:00 Refill Jese [facility] Building 1..840.114 350.1.13.10 4.2.7.2.[id number] [facility] 2021-03-03 10:43:46 2021-03-03 23:59:00 Hospital Encounter Casa Triplett [facility] 1.0.114 350.1.13.10 4.2.7.2.[id number] [facility] 2021-03-03 09:33:18 2021-03-03 10:16:34 Office Visit Casa Triplett [facility] nal Building 1.840.114 350.1.13.10 4.2.7.2.[id number] [facility] 2021-03-03 09:20:00 2021-03-03 09:20:00 Outpatient R CASA TRIPLETT SHIMOMickie [facility] [id number] [facility] 2021-03-03 00:00:00 2021-03-03 00:00:00 Orders Only Doctor Unassigned, Haigler [facility] 1..114 350.1.13.10 4.2.7.2.[id number] [facility] 2021-02-16 00:00:00 2021-02-16 00:00:00 Refill Monae [facility] Office Building One 1..114 350.1.13.10 4.2.7.2.[id number] [facility] 2021-02-01 00:00:00 2021-02-01 00:00:00 Refill Kelsey Pinto [facility] Office Building One 1..114 350.1.13.10 4.2.7.2.[id number] [facility] 2021-02-01 00:00:00 2021-02-01 00:00:00 Refill Darleen Sawant [facility] RudyMishelannabel hernándezelda Medical Office Building 1..114 350.1.13.10 4.2.7.2.[id number] [facility] 2021-02-01 00:00:00 2021-02-01 00:00:00 Mavis Morgan [facility] Building 1.2.840.114 350.1.13.10 4.2.7.2.[id number] [facility] 2021-01-09 14:15:01 2021-01-09 14:30:01 Office [facility] 1.2.840.114 350.1.13.10 4.2.7.2.[id number] [facility] 2021-01-09 14:30:00 2021-01-09 14:30:00 Outpatient R KELSEY PINTO [facility] [id number] [facility] 2021-01-03 00:00:00 2021-01-03 00:00:00 Telephone Kelsey Pinto [facility] 1.2.840.114 350.1.13.10 4.2.7.2.[id number] [facility] 2020-12-30 00:00:00 2020-12-30 00:00:00 Mavis Morgan [facility] Building 1.2.840.114 350.1.13.10 4.2.7.2.[id number] [facility] 2020-12-30 00:00:00 2020-12-30 00:00:00 Refill Kelsey Pinto [facility] Building 1.2.840.114 350.1.13.10 4.2.7.2.[id number] [facility] 2020-12-13 00:00:00 2020-12-13 00:00:00 Kelsey Sams [facility] Building 1.840.114 350.1.13.10 4.2.7.2.[id number] [facility] 2020-12-08 00:00:00 2020-12-08 00:00:00 Refill Kelsey Pinto [facility] Office Building One 1.0.114 350.1.13.10 4.2.7.2.[id number] [facility] 2020-12-08 00:00:00 2020-12-08 00:00:00 Refill Darleen Sawant [facility] Building 1.0.114 350.1.13.10 4.2.7.2.[id number] [facility] 2020-12-06 00:00:00 2020-12-06 00:00:00 Patient Secure Msg Doctor Unassigned, Haigler [facility] 1.0.114 350.1.13.10 4.2.7.2.[id number] [facility] 2020-12-03 00:00:00 2020-12-03 00:00:00 Refill Monae [facility] Office Building One ..114 350.1.13.10 4.2.7.2.[id number] [facility] 2020-12-02 00:00:00 2020-12-02 00:00:00 Refill Monae [facility] Office Building One ..114 350.1.13.10 4.2.7.2.[id number] [facility] 2020-11-29 00:00:00 2020-11-29 00:00:00 Telephone Mavis Duran [facility] nal Building 1.2.840.114 350.1.13.10 4.2.7.2.[id number] [facility] 2020-11-28 00:00:00 2020-11-28 00:00:00 Patient Secure Msg Doctor Unassigned, Haigler [facility] OFFICE BUILDING 1.2.840.114 350.1.13.10 4.2.7.2.[id number] [facility] 2020-11-24 07:16:21 2020-11-24 23:59:00 [facility] 1.2.840.114 350.1.13.10 4.2.7.2.[id number] [facility] 2020-11-24 12:00:00 2020-11-24 12:00:00 Outpatient R MAVIS DURAN [facility] [id number] [facility] 2020-11-24 00:00:00 2020-11-24 00:00:00 [facility] 1.2.840.114 350.1.13.10 4.2.7.2.[id number] [facility] 2020-11-22 00:00:00 2020-11-22 00:00:00 [facility] 1.2.840.114 350.1.13.10 4.2.7.2.[id number] [facility] 2020-11-22 00:00:00 2020-11-22 00:00:00 [facility] 1.2.840.114 350.1.13.10 4.2.7.2.[id number] [facility] 2020-11-21 08:38:20 2020-11-21 08:53:20 Laboratory Only Only, Adc Test Mavis Duran [facility] 1.20.114 350.1.13.10 4.2.7.2.[id number] [facility] 2020-11-21 08:45:00 2020-11-21 08:45:00 Outpatient R MAVIS DURAN [facility] [id number] [facility] 2020-11-11 00:00:00 2020-11-11 00:00:00 Patient Secure Msg Doctor Unassigned, Haigler [facility] 1.284.114 350.1.13.10 4.2.7.2.[id number] [facility] 2020-11-10 00:00:00 2020-11-10 00:00:00 Telephone [facility] 1.20.114 350.1.13.10 4.2.7.2.[id number] [facility] 2020-11-10 00:00:00 2020-11-10 00:00:00 [facility] 1.2.114 350.1.13.10 4.2.7.2.[id number] [facility] 2020-11-09 08:00:00 2020-11-09 08:00:00 Outpatient R MAVIS DURAN [facility] [id number] [facility] 2020-11-04 00:00:00 2020-11-04 00:00:00 [facility] 1.284.114 350.1.13.10 4.2.7.2.[id number] [facility] 2020-11-03 10:15:00 2020-11-03 10:15:00 Outpatient R MAVIS DURAN [facility] [id number] [facility] 2020-11-03 09:43:55 2020-11-03 09:58:55 Mold Inspector Visit Pob, Adc Lab Mavis Cabral [facility] 1.2.840.114 350.1.13.10 4.2.7.2.[id number] [facility] 2020-11-03 00:00:00 2020-11-03 00:00:00 Orders Only Doctor Unassigned, Haigler [facility] 1..840.114 350.1.13.10 4.2.7.2.[id number] [facility] 2020-11-01 13:43:17 2020-11-01 14:42:03 Office Visit Jese Gertrudecarleen [facility] 1.2.840.114 350.1.13.10 4.2.7.2.[id number] [facility] 2020-11-01 14:00:00 2020-11-01 14:00:00 Outpatient R DARLEEN SAWANT [facility] [id number] [facility] 2020-11-01 00:00:00 2020-11-01 00:00:00 Kelsey Sams [facility] Office Building One 1..840.114 350.1.13.10 4.2.7.2.[id number] [facility] 2020-10-27 13:30:00 2020-10-27 14:57:30 Outpatient R MAVIS DURAN [facility] [id number] [facility] 2020-10-27 13:30:00 2020-10-27 14:57:30 Office Visit Mavis Duran [facility] 1.2840.114 350.1.13.10 4.2.7.2.[id number] [facility] 2020-10-27 13:15:05 2020-10-27 14:57:30 Office Visit Mavis Duran [facility] 1.2840.114 350.1.13.10 4.2.7.2.[id number] [facility] 2020-10-27 13:30:00 2020-10-27 13:30:00 Outpatient R MAVIS DURAN [facility] [id number] [facility] 2020-10-27 11:04:20 2020-10-27 11:19:20 Mold Inspector Visit Pob, Adc Lab Main Mavis DuranPerryChloé [facility] 1.2840.114 350.1.13.10 4.2.7.2.[id number] [facility] 2020-10-26 00:00:00 2020-10-26 00:00:00 Telephone Mavis Duran [facility] 1.2840.114 350.1.13.10 4.2.7.2.[id number] [facility] 2020-10-17 10:00:00 2020-10-17 10:00:00 Outpatient R MAVIS DURAN [facility] [id number] [facility] 2020-10-11 00:00:00 2020-10-11 00:00:00 Kelsey Sams [facility] Office Building [facility] 1.2.840.114 350.1.13.10 4.2.7.2.[id number] [facility] 2020-10-10 09:30:00 2020-10-10 09:30:00 Outpatient ELIDA CLAROS [facility] [id number] [facility] 2020-09-29 00:00:00 2020-09-29 00:00:00 RefKelsey Pierce [facility] Office Building [facility] 1.114 350.1.13.10 4.2.7.2.[id number] [facility] 2020-09-29 00:00:00 2020-09-29 00:00:00 RefMavis Martinez [facility] 1.114 350.1.13.10 4.2.7.2.[id number] [facility] 2020-09-20 00:00:00 2020-09-20 00:00:[address] [facility] 1.114 350.1.13.10 4.2.7.2.[id number] [facility] 2020-09-20 00:00:00 2020-09-20 00:00:00 Orders Only Doctor Unassigned, Haigler [facility] 1.114 350.1.13.10 4.2.7.2.[id number] [facility] 2020-08-22 00:00:00 2020-08-22 00:00:00 Kelsey Sams [facility] Office Building One .114 350.1.13.10 4.2.7.2.[id number] [facility] 2020-08-20 00:00:00 2020-08-20 00:00:00 Kelsey Sams [facility] Office Building One 1..840.114 350.1.13.10 4.2.7.2.[id number] [facility] 2020-08-18 10:00:00 2020-08-18 10:00:00 Outpatient R MAVIS DURAN [facility] [id number] [facility] 2020-08-17 00:00:00 2020-08-17 00:00:00 Patient Outreach Reno Rogeriomariah Mcmahan [facility] 1..840.114 350.1.13.10 4.2.7.2.[id number] [facility] 2020-08-08 13:00:00 2020-08-08 13:00:00 Outpatient R [facility] [id number] [facility] 2020-08-05 00:00:00 2020-08-05 00:00:00 Orders Only Doctor Unassigned, Haigler [facility] 1.840.114 350.1.13.10 4.2.7.2.[id number] [facility] 2020-07-29 00:00:00 2020-07-29 00:00:00 Patient Secure Msg Jese [facility] BUILDING 1..840.114 350.1.13.10 4.2.7.2.[id number] [facility] 2020-07-26 00:00:00 2020-07-26 00:00:00 [facility] Building 1..840.114 350.1.13.10 4.2.7.2.[id number] [facility] 2020-07-22 07:53:25 2020-07-22 08:08:25 Office Visit Monae Kelsey [facility] Office Building One 1.2840.114 350.1.13.10 4.2.7.2.[id number] [facility] 2020-07-22 08:00:00 2020-07-22 08:00:00 Outpatient R GARYKURTIS KELSEY [facility] [id number] [facility] 2020-07-19 08:45:00 2020-07-19 08:45:00 Outpatient R CHRISTIE HANKS [facility] [id number] [facility] 2020-07-19 08:07:59 2020-07-19 08:22:59 Office Visit Christie Hanks [facility] Building 1.2840.114 350.1.13.10 4.2.7.2.[id number] [facility] 2020-07-15 00:00:00 2020-07-15 00:00:00 Kelsey Sams [facility] Office Building One 1.84.114 350.1.13.10 4.2.7.2.[id number] [facility] 2020-07-13 09:36:41 2020-07-13 09:51:41 Mold Inspector Visit Pob, Adc Lab Main Darleen Sawant [facility] Building 1.840.114 350.1.13.10 4.2.7.2.[id number] [facility] 2020-07-13 08:45:21 2020-07-13 09:45:21 Mold Inspector Visit Pc, Adc Vascular Room 1 - Mavis Duran [facility] Building 1.840.114 350.1.13.10 4.2.7.2.[id number] [facility] 2020-07-13 09:00:00 2020-07-13 09:00:00 Outpatient MAVIS SAM [facility] [id number] [facility] 2020-07-13 00:00:00 2020-07-13 00:00:00 Telephone Jese [facility] Building 1.2.840.114 350.1.13.10 4.2.7.2.[id number] [facility] 2020-07-13 00:00:00 2020-07-13 00:00:00 Orders Only Doctor Unassigned, Haigler [facility] 1.2840.114 350.1.13.10 4.2.7.2.[id number] [facility] 2020-07-11 15:01:15 2020-07-11 17:46:31 Office Visit Elida Rangel [facility] 1.2840.114 350.1.13.10 4.2.7.2.[id number] [facility] 2020-07-11 15:15:00 2020-07-11 15:15:00 Outpatient ELIDA CLAROS [facility] [id number] [facility] 2020-07-04 00:00:00 2020-07-04 00:00:00 Telephone [facility] 1.2840.114 350.1.13.10 4.2.7.2.[id number] [facility] 2020-06-24 13:27:09 2020-06-24 14:40:55 Office Visit Stephon Escobar [facility] 1.2840.114 350.1.13.10 4.2.7.2.[id number] [facility] 2020-06-24 13:30:00 2020-06-24 13:30:00 Outpatient R STEPHON ESCOBAR [facility] [id number] [facility] 2020-06-22 16:01:01 2020-06-22 17:00:05 Office Visit Darleen Sawant [facility] Building 1.2.840.114 350.1.13.10 4.2.7.2.[id number] [facility] 2020-06-22 16:00:00 2020-06-22 16:00:[address] [facility] [address] [facility] [id number] [facility] 2020-06-21 09:00:00 2020-06-21 09:00:00 Outpatient R CHRISTIE HANKS [facility] [id number] [facility] 2020-06-13 00:00:00 2020-06-13 00:00:00 Refill Garykurtis [facility] Office Building One 1.2.840.114 350.1.13.10 4.2.7.2.[id number] [facility] 2020-05-19 00:00:00 2020-05-19 00:00:00 Refill Jese [facility] Building 1.2.840.114 350.1.13.10 4.2.7.2.[id number] [facility] 2020-05-19 00:00:00 2020-05-19 00:00:00 Refill Garyberhanejana [facility] Office Building One 1.2.840.114 350.1.13.10 4.2.7.2.[id number] [facility] 2020-05-13 00:00:00 2020-05-13 00:00:00 Refill Garyberhanejana Kelsey [facility] Building 1.2.840.114 350.1.13.10 4.2.7.2.[id number] [facility] 2020-04-29 00:00:00 2020-04-29 00:00:00 Refandre Pinto [facility] Office Building One 1.84.114 350.1.13.10 4.2.7.2.[id number] [facility] 2020-04-29 00:00:00 2020-04-29 00:00:00 Orders Only Doctor Unassigned, Haigler [facility] 1.114 350.1.13.10 4.2.7.2.[id number] [facility] 2020-04-26 00:00:00 2020-04-26 00:00:00 Refill Monae [facility] Office Building One 1.84.114 350.1.13.10 4.2.7.2.[id number] [facility] 2020-04-18 09:13:36 2020-04-18 09:51:52 Office Visit Mavis Duran [facility] Building 1.840.114 350.1.13.10 4.2.7.2.[id number] [facility] 2020-04-18 09:30:00 2020-04-18 09:30:00 Outpatient R MAVIS DURAN [facility] [id number] [facility] 2020-04-18 00:00:00 2020-04-18 00:00:00 Telephone Mavis Duran [facility] Building 1.840.114 350.1.13.10 4.2.7.2.[id number] [facility] 2020-04-14 00:00:00 2020-04-14 00:00:00 Telephone Veselka, [facility] Office Building One 1..114 350.1.13.10 4.2.7.2.[id number] [facility] 2020-04-06 00:00:00 2020-04-06 00:00:00 Kayla Pinto [facility] Office Building One 1..114 350.1.13.10 4.2.7.2.[id number] [facility] 2020-04-05 10:00:00 2020-04-05 10:00:00 Outpatient DARLEEN RIDER [facility] [id number] [facility] 2020-03-23 00:00:00 2020-03-23 00:00:00 Kayla Pinto [facility] Office Building One 1.114 350.1.13.10 4.2.7.2.[id number] [facility] 2020-03-14 00:00:00 2020-03-14 00:00:00 Kayla Pinto [facility] Office Building One 1.114 350.1.13.10 4.2.7.2.[id number] [facility] 2020-03-10 00:00:00 2020-03-10 00:00:00 Orders Only Doctor Unassigned, Haigler [facility] 1..114 350.1.13.10 4.2.7.2.[id number] [facility] 2020-02-25 00:00:00 2020-02-25 00:00:00 Kayla Pinto [facility] Office Building One 1..114 350.1.13.10 4.2.7.2.[id number] [facility] 2020-02-17 00:00:00 2020-02-17 00:00:00 Telephone Mavis Duran [facility] Medical Office Building 1.2840.114 350.1.13.10 4.2.7.2.[id number] [facility] 2020-02-17 00:00:00 2020-02-17 00:00:00 Orders Only Doctor Unassigned, Haigler [facility] 1.2840.114 350.1.13.10 4.2.7.2.[id number] [facility] 2020-02-16 10:46:53 2020-02-16 11:33:45 Office Visit Mavis Duran [facility] Building 1.840.114 350.1.13.10 4.2.7.2.[id number] [facility] 2020-02-16 11:00:00 2020-02-16 11:00:00 Outpatient R MAVIS DURAN [facility] [id number] [facility] 2020-02-16 00:00:00 2020-02-16 00:00:00 Telephone Mavis Duran [facility] Building 1.840.114 350.1.13.10 4.2.7.2.[id number] [facility] 2020-02-12 00:00:00 2020-02-12 00:00:00 Kelsey Sams [facility] Office Building One 1.840.114 350.1.13.10 4.2.7.2.[id number] [facility] 2020-02-04 03:16:00 2020-02-04 03:16:00 Outpatient Ajibade_O_A H [facility] [id number] [facility] 2020-01-25 18:04:00 2020-01-26 15:59:00 Hospital Encounter Mavis Duran, Daniel Brock, Arun Annabel Rudd, Daniel Ang-Zahraa, Ccl [facility] 1.2840.114 350.1.13.10 4.2.7.2.[id number] [facility] 2020-01-25 08:00:00 2020-01-25 08:00:00 Outpatient R MAVIS DURAN [facility] [id number] [facility] 2020-01-22 08:26:40 2020-01-22 08:41:40 Laboratory Only Only, Adc Test Miguel A Maninder [facility] 1.2840.114 350.1.13.10 4.2.7.2.[id number] [facility] 2020-01-22 08:30:00 2020-01-22 08:30:00 Outpatient R GABRIELLE GRADYN [facility] [id number] [facility] 2020-01-22 00:00:00 2020-01-22 00:00:00 Orders Only Doctor Unassigned, Haigler [facility] 1.2840.114 350.1.13.10 4.2.7.2.[id number] [facility] 2020-01-22 00:00:00 2020-01-22 00:00:00 Telephone Mavis Duran [facility] 1.2840.114 350.1.13.10 4.2.7.2.[id number] [facility] 2020-01-22 00:00:00 2020-01-22 00:00:00 Telephone Mavis Duran [facility] 1.2840.114 350.1.13.10 4.2.7.2.[id number] [facility] 2020-01-21 00:00:00 2020-01-21 00:00:00 Telephone Mavis Duran [facility] 1.2840.114 350.1.13.10 4.2.7.2.[id number] [facility] 2020-01-20 09:00:00 2020-01-20 09:00:00 Outpatient R KELSEY PINTO [facility] [id number] [facility] 2020-01-20 08:20:45 2020-01-20 08:51:41 Office Visit Kelsey Pinto [facility] Building 1.2840.114 350.1.13.10 4.2.7.2.[id number] [facility] 2020-01-19 00:00:00 2020-01-19 00:00:00 [facility] 1.2840.114 350.1.13.10 4.2.7.2.[id number] [facility] 2020-01-07 00:00:00 2020-01-07 00:00:00 Patient Secure Darleen Atkins [facility] BUILDING 1.2840.114 350.1.13.10 4.2.7.2.[id number] [facility] 2020-01-05 00:00:00 2020-01-05 00:00:00 Telephone Mavis Duarn [facility] Building 1.2840.114 350.1.13.10 4.2.7.2.[id number] [facility] 2020-01-04 00:00:00 2020-01-04 00:00:00 Refill Kelsey Pinto [facility] Office Building One 1.2.114 350.1.13.10 4.2.7.2.[id number] [facility] 2019-12-31 08:51:13 2019-12-31 09:06:13 Mold Inspector Visit 2, Adc Lab Jese [facility] Building 1.2840.114 350.1.13.10 4.2.7.2.[id number] [facility] 2019-12-31 09:00:00 2019-12-31 09:00:00 Outpatient R JESE [facility] [id number] [facility] 2019-12-30 10:09:22 2019-12-30 11:08:04 Office Visit Jese [facility] Building 1.2840.114 350.1.13.10 4.2.7.2.[id number] [facility] 2019-12-30 11:00:00 2019-12-30 11:00:00 Outpatient R JESE [facility] [id number] [facility] 2019-12-28 00:00:00 2019-12-28 00:00:00 Telephone Arun Brock [facility] 1.2840.114 350.1.13.10 4.2.7.2.[id number] [facility] 2019-12-26 00:00:00 2019-12-26 00:00:00 Refill Jese [facility] Building 1.2840.114 350.1.13.10 4.2.7.2.[id number] [facility] 2019-12-22 09:31:59 2019-12-22 10:07:06 Mold Inspector Visit Pc, Adc [facility] 1.2840.114 350.1.13.10 4.2.7.2.[id number] [facility] 2019-12-22 10:00:00 2019-12-22 10:00:00 Outpatient R [facility] [id number] [facility] 2019-12-21 00:00:00 2019-12-21 00:00:00 Telephone Arun Brock [facility] 1.840.114 350.1.13.10 4.2.7.2.[id number] [facility] 2019-12-18 09:30:00 2019-12-18 09:30:00 [id number] 2019-12-18 00:00:00 2019-12-18 00:00:00 Refill Darleen Sawant [facility] Building 1..840.114 350.1.13.10 4.2.7.2.[id number] [facility] 2019-12-18 00:00:00 2019-12-18 00:00:00 Refill Kelsey Pinto [facility] Office Building One 1..840.114 350.1.13.10 4.2.7.2.[id number] [facility] 2019-12-17 09:38:50 2019-12-17 10:54:41 Office Visit Christie Hanks [facility] Building 1..840.114 350.1.13.10 4.2.7.2.[id number] [facility] 2019-12-17 10:00:00 2019-12-17 10:00:00 [id number] [facility] 2019-12-15 00:00:00 2019-12-15 00:00:00 Telephone Mavis Duran [facility] 1.2840.114 350.1.13.10 4.2.7.2.[id number] [facility] 2019-12-14 00:00:00 2019-12-14 00:00:00 Telephone Mavis Duran [facility] Building 1.2840.114 350.1.13.10 4.2.7.2.[id number] [facility] 2019-12-10 00:00:00 2019-12-10 00:00:00 Refandre Pinto [facility] Office Building One 1.20.114 350.1.13.10 4.2.7.2.[id number] [facility] 2019-11-13 10:26:47 2019-11-13 23:59:00 Outpatient R MAVIS DURAN [facility] [id number] [facility] 2019-11-13 10:26:00 2019-11-13 23:59:00 Hospital Encounter Mavis Duran [facility] 1.2840.114 350.1.13.10 4.2.7.2.[id number] [facility] 2019-11-12 00:00:00 2019-11-12 00:00:00 Kayla Pinto [facility] Office Building One 1.2840.114 350.1.13.10 4.2.7.2.[id number] [facility] 2019-10-26 08:07:42 2019-10-26 09:07:42 Mold Inspector Visit Pc, Adc Vascular Room 1 - Mavis Duran [facility] Building 1.2840.114 350.1.13.10 4.2.7.2.[id number] [facility] 2019-10-26 08:00:00 2019-10-26 08:00:00 Outpatient R [facility] [id number] [facility] 2019-10-09 00:00:00 2019-10-09 00:00:00 Telephone Darleen Sawant [facility] Building 1.2.840.114 350.1.13.10 4.2.7.2.[id number] [facility] 2019-10-06 00:00:00 2019-10-06 00:00:00 Telephone Kelsey Pinto [facility] Office Building One 1..840.114 350.1.13.10 4.2.7.2.[id number] [facility] 2019-10-01 09:30:00 2019-10-01 09:30:00 Outpatient R CHRISTIE HANKS [facility] [id number] [facility] 2019-09-30 00:00:00 2019-09-30 00:00:00 Telephone Kelsey Pinto [facility] Building 1.2.840.114 350.1.13.10 4.2.7.2.[id number] [facility] 2019-09-29 00:00:00 2019-09-29 00:00:00 [facility] Building 1.2.840.114 350.1.13.10 4.2.7.2.[id number] [facility] 2019-09-11 11:30:00 2019-09-11 11:30:00 Outpatient R MAVIS DURAN [facility] [id number] [facility] 2019-09-11 08:41:49 2019-09-11 09:11:49 Telemedici ne Visit Mavis Duran [facility] Building 1.2.840.114 350.1.13.10 4.2.7.2.[id number] [facility] 2019-09-03 09:00:00 2019-09-03 09:00:00 Outpatient R CHRISTIE HANKS [facility] [id number] [facility] 2019-09-03 00:00:00 2019-09-03 00:00:00 Refill Garykurtis [facility] Office Building One .114 350.1.13.10 4.2.7.2.[id number] [facility] 2019-09-01 00:00:00 2019-09-01 00:00:00 Refandre Garykurtis [facility] Office Building One .114 350.1.13.10 4.2.7.2.[id number] [facility] 2019-08-28 10:15:00 2019-08-28 10:15:00 Outpatient R VERA MARTIN [facility] [id number] [facility] 2019-08-28 10:00:00 2019-08-28 10:00:00 Outpatient R NICOL MOFFETTELIS [facility] [id number] [facility] 2019-08-12 00:00:00 2019-08-12 00:00:00 Orders Only Doctor Unassigned, Haigler [facility] .114 350.1.13.10 4.2.7.2.[id number] [facility] 2019-08-11 00:00:00 2019-08-11 00:00:00 Kayla Vegakurtis [facility] Office Building One .114 350.1.13.10 4.2.7.2.[id number] [facility] 2019-08-10 00:00:00 2019-08-10 00:00:00 Telephone Katerin Moffett [facility] Building 1.2840.114 350.1.13.10 4.2.7.2.[id number] [facility] 2019-08-04 00:00:00 2019-08-04 00:00:00 Refill Kelsey Pinto [facility] Office Building One 1.2840.114 350.1.13.10 4.2.7.2.[id number] [facility] 2019-07-29 07:29:00 2019-07-29 07:29:00 Outpatient Ige-Odunuga _J_AH VF VF [id number] [facility] 2019-07-22 09:57:26 2019-07-22 10:12:26 Office Visit EsperanzajanaKelsey [facility] Office Building One 1.2840.114 350.1.13.10 4.2.7.2.[id number] [facility] 2019-07-02 00:00:00 2019-07-02 00:00:00 Orders Only Doctor Unassigned, Haigler [facility] 1.2.840.114 350.1.13.10 4.2.7.2.[id number] [facility] 2019-07-01 00:00:00 2019-07-01 00:00:00 Telephone Mavis Duran [facility] Building 1.2840.114 350.1.13.10 4.2.7.2.[id number] [facility] 2019-06-24 09:05:14 2019-06-24 10:37:06 Office Visit Darleen Sawant [facility] Building 1.2840.114 350.1.13.10 4.2.7.2.[id number] [facility] 2019-03-03 10:00:00 2019-03-03 10:44:26 Outpatient R SVETAZAHRAACHRISTIE [facility] [id number] [facility] 2019-02-25 09:47:19 2019-02-25 23:59:00 Hospital Encounter Mavis Duran [facility] ([facility]) 1.20.114 350.1.13.10 4.2.7.2.[id number] [facility] 2019-02-25 00:00:00 2019-02-25 00:00:00 Orders Only Doctor Unassigned, Haigler [facility] 1.2840.114 350.1.13.10 4.2.7.2.[id number] [facility] 2019-02-17 12:37:35 2019-02-17 23:59:00 Hospital Encounter Katerin Moffett, Adc Cardio Vascular [facility] 1.20.114 350.1.13.10 4.2.7.2.[id number] [facility] 2019-02-13 14:39:41 2019-02-13 14:54:41 Mold Inspector Visit 1, [facility] 1.20.114 350.1.13.10 4.2.7.2.[id number] [facility] 2019-02-13 08:15:00 2019-02-13 08:15:00 Outpatient CHRISTIE CORTEZ [facility] [id number] [facility] 2019-02-11 09:03:26 2019-02-11 09:18:26 Mold Inspector Visit 2, [facility] 1.2840.114 350.1.13.10 4.2.7.2.[id number] [facility] 2019-02-11 07:39:35 2019-02-11 08:53:48 Office Visit Darleen Sawant [facility] Building 1.2.840.114 350.1.13.10 4.2.7.2.[id number] [facility] 2019-02-11 00:00:00 2019-02-11 00:00:00 Orders Only Doctor Unassigned, Haigler [facility] 1.2.840.114 350.1.13.10 4.2.7.2.[id number] [facility] 2019-01-19 00:00:00 2019-01-19 00:00:00 Telephone Mavis Duran [facility] 1.2.840.114 350.1.13.10 4.2.7.2.[id number] [facility] 2019-01-01 15:45:45 2019-01-01 17:09:09 Ancillary Visit Nadia Tenorio Craig L [facility] 1.2.840.114 350.1.13.10 4.2.7.2.[id number] [facility] 2018-12-31 09:49:51 2018-12-31 10:19:51 Office Visit Mavis Duran [facility] 1.2.840.114 350.1.13.10 4.2.7.2.[id number] [facility] 2018-07-04 11:01:00 2018-07-04 11:01:00 [facility] [id number] [facility] 2018-07-04 08:00:00 2018-07-04 08:00:00 [facility] [id number] [facility] 2018-05-29 13:30:00 2018-05-29 13:30:00 Outpatient [facility] [id number] [facility] 2018-05-19 09:03:00 2018-05-19 09:03:00 Outpatient [facility] [id number] [facility] 2018-03-10 13:30:00 2018-03-10 13:30:00 Outpatient [facility] [id number] [facility] Results Test Description Test Time Test Comments Results Result Co mments Source [facility] Metabolic Panel (NA, K, CL, CO2, GLUCOSE, BUN, CREATININE, CA)2023-11-19 19:06:47* Test Item Value Reference Range Interpretation Comme nts NA (test code = 8119040972) 137 mmol/L 135-145 K (test code = 4119295782) 4.9 mmol/L 3.5-5.0 CL (test code = 5736328562) 103 mmol/L 98-108 CO2 TOTAL (test code = 2975183691) 24 mmol/L 23-31 AGAP (test code = 6476610171) 10 2-16 BUN (test code = 3315847646) 17 mg/dL 7-23 GLUCOSE (test code = 3295680408) 236 mg/dL 70-110 H CREATININE (test code = 2160-0) 1.07 mg/dL 0.60-1.25 CALCIUM (test code = 3323393360) 9.3 mg/dL 8.6-10.6 eGFR (test code = 74687-9) 76.5 mL/min/1.73m2 CKD-EPI eGFR (2020). Assuming creatinine has been stable day-to-day for at least three months, the eGFR indicates Category G2 (60 - 89 mL/min/1.73 m2) Lab Interpretation (test code = 90340-9) [facility]normal [facility]23-11-16 16:34:11* Test Item Value Reference Range Interpretation Comme nts POCT GLU (test code = 5735522388) 356 mg/dL 70-110 H Lab Interpretation (test cod e = 26668-3) Abnormal [facility] GLUCOSE (AUTOMATED)2023-11-16 12:42:54* Test Item Value Reference Range Interpretation Comme nts POCT GLU (test code = 2806416756) 146 mg/dL 70-110 H Lab Interpretation (test cod e = 96526-3) Abnormal [facility] GLUCOSE (AUTOMATED)2023-11-16 01:08:56* Test Item Value Reference Range Interpretation Comme nts POCT GLU (test code = 4488539003) 267 mg/dL 70-110 H Lab Interpretation (test cod e = 87418-9) Abnormal [facility] GLUCOSE (AUTOMATED)2023-11-15 21:30:08* Test Item Value Reference Range Interpretation Comme nts POCT GLU (test code = 3770984070) 329 mg/dL 70-110 H Lab Interpretation (test cod e = 95081-6) Abnormal [facility] GLUCOSE (AUTOMATED)2023-11-15 16:28:54* Test Item Value Reference Range Interpretation Comme nts POCT GLU (test code = 0301030901) 324 mg/dL 70-110 H Lab Interpretation (test cod e = 70858-8) Abnormal [facility] GLUCOSE (AUTOMATED)2023-11-15 12:32:07* Test Item Value Reference Range Interpretation Comme nts POCT GLU (test code = 4053362943) 164 mg/dL 70-110 H Lab Interpretation (test cod e = 44952-9) Abnormal [facility]. Metabolic Panel (43603)2023-11-15 04:35:03* Test Item Value Reference Range Interpretation Comme nts NA (test code = 5698073979) 136 mmol/L 135-145 K (test code = 7370565819) 4.2 mmol/L 3.5-5.0 CL (test code = 9114499664) 102 mmol/L 98-108 CO2 TOTAL (test code = 3443556954) 26 mmol/L 23-31 AGAP (test code = 9124543088) 8 2-16 BUN (test code = 6378510987) 23 mg/dL 7-23 GLUCOSE (test code = 6050226714) 214 mg/dL 70-110 H CREATININE (test code = 2160-0) 1.25 mg/dL 0.60-1.25 TOTAL BILI (test code = 5183485795) 0.9 mg/dL 0.1-1.1 CALCIUM (test code = 2734799675) 8.8 mg/dL 8.6-10.6 T PROTEIN (test code = 4243910109) 7.4 g/dL 6.3-8.2 ALBUMIN (test code = 9326743571) 4.3 g/dL 3.5-5.0 ALK PHOS (test code = 1831651729) 106 U/L 34-122 ALTv (test code = 1742-6) 21 U/L 5-50 AST(SGOT) (test code = 1372923794) 21 U/L 13-40 eGFR (test code = 82949-2) 63.5 mL/min/1.73m2 CKD-EPI eGFR (2020). Assuming creatinine has been stable day-to-day for at least three months, the eGFR indicates Category G2 (60 - 89 mL/min/1.73 m2) Lab Interpretation (test code = 80847-1) [facility]normal [facility]cosylated Hemoglobin (A1C)2023-11-15 04:32:32* Test Item Value Reference Range Interpretation Comme nts HGB A1C (test code = 4548-4) 10.7 % 4.0-5.7 H RADHA (test code = RADHA) Reference RangesNormal: <5.7%Prediabetes: 5.7 - 6.4%Diabetes: > 6.5% Lab Interpretation (test code = 32887-8) [facility]normal [facility] HospitalCbc with [id number] 04:21:02* Test Item Value Reference Range Interpretation Comme nts WBC (test code = 6690-2) 8.36 4.20-10.70 RBC (test code = 789-8) 4.20 4.26-5.52 L HGB (test code = 718-7) 12.5 g/dL 12.2-16.4 HCT (test code = 4544-3) 37.3 % 38.4-49.3 L MCV (test code = 787-2) 88.8 fL 81.7-95.6 MCH (test code = 785-6) 29.8 pg 26.1-32.7 MCHC (test code = 786-4) 33.5 g/dL 31.2-35.0 RDW-SD (test code = 76693-8) 41.0 fL 38.5-51.6 RDW-CV (test code = 788-0) 12.7 % 12.1-15.4 PLT (test code = 777-3) 225 150-328 MPV (test code = 10708-8) 10.2 fL 9.8-13.0 NRBC/100 WBC (test code = 2959852401) 0.0 0.0-10.0 NRBC x10^3 (test code = 5452741443) See_Comment [Automated messa ge] The system which generated this result transmitted reference range: 10*3/?L. The reference range was not used to interpret this result as normal/abnormal. GRAN MAT (NEUT) % (test code = 770-8) 63.6 % IMM GRAN % (test code = 7200110012) 0.20 % LYMPH % (test code = 736-9) 25.5 % MONO % (test code = 5905-5) 8.9 % EOS % (test code = 713-8) 1.3 % BASO % (test code = 706-2) 0.5 % GRAN MAT x10^3(ANC) (test code = 8565900695) 5.32 10*3/uL 1.99-6.95 IMM GRAN x10^3 (test code = 4137564495) 0.00-0.06 LYMPH x10^3 (test code = 731-0) 2.13 10*3/uL 1.09-3.23 MONO x10^3 (test code = 742-7) 0.74 10*3/uL 0.36-1.02 EOS x10^3 (test code = 711-2) 0.11 10*3/uL 0.06-0.53 BASO x10^3 (test code = 704-7) 0.04 10*3/uL 0.01-0.09 Lab Interpretation (test code = 70323-6) [facility]normal [facility] HospitalXR FOOT 3+ VW [id number] 03:36:40ORDERING PHYSICIAN: SINGER BROWNING HISTORY: ?pain COMPARISON: None available. TECHNIQUE: ?3 views of left foot. FINDINGS: ? Mild forefoot soft tissue swelling. Large bulky calcaneal spurs. Bipartitelateral hallux sesamoid bone. Degenerative findings at the firstmetatarsophalangeal joint. No acute fracture or malalignment. Joint spacesare maintained. No radiopaque foreign body.[facility] GLUCOSE (AUTOMATED)2022-06-17 18:09:53* Test Item Value Reference Range Interpretation Comme [facility] POCT GLU (test code = 2523069700) 304 mg/dL 70-110 H Lab Interpretation (test cod e = 21700-9) Abnormal [facility] GLUCOSE (AUTOMATED)2022-06-17 14:26:24* Test Item Value Reference Range Interpretation Comme [facility] POCT GLU (test code = 1525747568) 127 mg/dL 70-110 H Lab Interpretation (test cod e = 16112-5) [facility]normal [facility] HospitalBASIC METABOLIC PANEL (NA, K, CL, CO2, GLUCOSE, BUN, CREATININE, CA)2022-06-17 10:55:07* Test Item Value Reference Range Interpretation Comme [facility] NA (test code = 8199289159) 140 mmol/L 135-145 K (test code = 9345293944) 3.9 mmol/L 3.5-5.0 CL (test code = 5350282129) 112 mmol/L 98-108 H CO2 TOTAL (test code = 8176276844) 23 mmol/L 23-31 AGAP (test code = 3394751944) 2-16 BUN (test code = 1083570192) 11 mg/dL 7-23 GLUCOSE (test code = 6376458837) 116 mg/dL 70-110 H CREATININE (test code = 7456768318) 0.80 mg/dL 0.60-1.25 CALCIUM (test code = 2191586009) 8.3 mg/dL 8.6-10.6 L eGFR (test code = 4085913429) mL/min/1.73m2 RADHA (test code = RADHA) Association of Glomerular Filtration Rate (GFR) and Staging of Kidney Disease* + --+ --+ ------+| GFR (mL/min/1.73 m2) ?| With Kidney Damage ?| ?Without Kidney Damage+ --------+ --------+ +| ?>90 ?| ?Stage one ?| ? Normal ?+ ---+ ---+ -------+| ?60-89 ?| ?Stage two ?| ? Decreased GFR ? + --+ --+ ------+| ?30-59 ?| ?Stage three ?| ? Stage three ? + --+ --+ ------+| ?15-29 ?| ?Stage four ? | ? Stage four ?+ ---+ ---+ -------+| ?<15 (or dialysis) ? ?| ?Stage five ? | ? Stage five ?+ ---+ ---+ -------+ *Each stage assumes the associated GFR level has been in effect for at least three months. ?Stages 1 to 5, with or without kidney disease, indicate chronic kidney disease. Notes: Determination of stages one and two (with eGFR >59mL/min/1.73 m2) requires estimation of kidney damage for at least three months as defined by structural or functional abnormalities of the kidney, manifested by either:Pathological abnormalities or Markers of kidney damage (including abnormalities in the composition of the blood or urine or abnormalities in imaging tests). Lab Interpretation (test code = 80957-3) [facility]normal [facility] HospitalMAGNESIUM2023-01-08 10:55:07* Test Item Value Reference Range Interpretation Comme nts MAGNESIUM (test code = 4717532477) 1.9 mg/dL 1.7-2.4 Lab Interpretation (test cod e = 97454-8) Normal [facility] HospitalCB WITHOUT [id number] 10:43:09* Test Item Value Reference Range Interpretation Comme nts WBC (test code = 6690-2) See_Comment [Automated message] The system which generated this result transmitted reference range: 4.20 - 10.70 10*3/?L. The reference range was not used to interpret this result as normal/abnormal. RBC (test code = 789-8) See_Comment L [Automated message] The system which generated this result transmitted reference range: 4.26 - 5.52 10*6/?L. The reference range was not used to interpret this result as normal/abnormal. HGB (test code = 718-7) 11.7 g/dL 12.2-16.4 L HCT (test code = 4544-3) 33.5 % 38.4-49.3 L MCH (test code = 785-6) 29.5 pg 26.1-32.7 MCV (test code = 787-2) 84.6 fL 81.7-95.6 MCHC (test code = 786-4) 34.9 g/dL 31.2-35.0 PLT (test code = 777-3) See_Comment [Automated message] The system which generated this result transmitted reference range: 150 - 328 10*3/?L. The reference range was not used to interpret this result as normal/abnormal. MPV (test code = 51963-3) 10.0 fL 9.8-13.0 RDW-CV (test code = 788-0) 12.7 % 12.1-15.4 RDW-SD (test code = 35748-7) 38.9 fL 38.5-51.6 NRBC x10^3 (test code = 0543751361) See_Comment [Automated ITS Compliancea ge] The system which generated this result transmitted reference range: 10*3/?L. The reference range was not used to interpret this result as normal/abnormal. NRBC/100 WBC (test code = 6914591132) See_Comment [Automated ITS Compliancea ge] The system which generated this result transmitted reference range: 0.0 - 10.0 /100 WBCs. The reference range was not used to interpret this result as normal/abnormal. IPF % (test code = 3995357990) Lab Interpretation (test code = 62119-7) Abnormal [facility] GLUCOSE (AUTOMATED)2022-06-17 05:25:29* Test Item Value Reference Range Interpretation Comme nts POCT GLU (test code = 1065612427) 224 mg/dL 70-110 H Lab Interpretation (test cod e = 21712-3) Abnormal [facility] GLUCOSE (AUTOMATED)2022-06-17 02:44:53* Test Item Value Reference Range Interpretation Comme nts POCT GLU (test code = 5226994704) 330 mg/dL 70-110 H Lab Interpretation (test cod e = 83296-5) Abnormal [facility] METABOLIC PANEL (NA, K, CL, CO2, GLUCOSE, BUN, CREATININE, CA)2022-06-16 20:01:23* Test Item Value Reference Range Interpretation Comme nts NA (test code = 3153412922) 137 mmol/L 135-145 K (test code = 8057306970) 4.4 mmol/L 3.5-5.0 CL (test code = 2055046744) 107 mmol/L 98-108 CO2 TOTAL (test code = 1792318332) 24 mmol/L 23-31 AGAP (test code = 8208313344) 2-16 BUN (test code = 2043657088) 13 mg/dL 7-23 GLUCOSE (test code = 9780335512) 275 mg/dL 70-110 H CREATININE (test code = 3561868881) 0.84 mg/dL 0.60-1.25 CALCIUM (test code = 2695159330) 8.6 mg/dL 8.6-10.6 eGFR (test code = 9471087953) mL/min/1.73m2 RADHA (test code = RADHA) Association of Glomerular Filtration Rate (GFR) and Staging of Kidney Disease* + --+ --+ ------+| GFR (mL/min/1.73 m2) ?| With Kidney Damage ?| ?Without Kidney Damage+ --------+ --------+ +| ?>90 ?| ?Stage one ?| ? Normal ?+ ---+ ---+ -------+| ?60-89 ?| ?Stage two ?| ? Decreased GFR ? + --+ --+ ------+| ?30-59 ?| ?Stage three ?| ? Stage three ? + --+ --+ ------+| ?15-29 ?| ?Stage four ? | ? Stage four ?+ ---+ ---+ -------+| ?<15 (or dialysis) ? ?| ?Stage five ? | ? Stage five ?+ ---+ ---+ -------+ *Each stage assumes the associated GFR level has been in effect for at least three months. ?Stages 1 to 5, with or without kidney disease, indicate chronic kidney disease. Notes: Determination of stages one and two (with eGFR >59mL/min/1.73 m2) requires estimation of kidney damage for at least three months as defined by structural or functional abnormalities of the kidney, manifested by either:Pathological abnormalities or Markers of kidney damage (including abnormalities in the composition of the blood or urine or abnormalities in imaging tests). Lab Interpretation (test code = 28398-4) [facility]MAG[facility]2023-01-07 20:01:23* Test Item Value Reference Range Interpretation Comme nts MAGNESIUM (test code = 8437617342) 1.7 mg/dL 1.7-2.4 Lab Interpretation (test cod e = 70893-4) Normal [facility])2022-06-16 11:45:18* Test Item Value Reference Range Interpretation Comme nts POCT GLU (test code = 2754596295) 91 mg/dL 70-110 Lab Interpretation (test cod e = 69427-1) Normal [facility] HospitalTHYROID STIMULATING [id number] 23:08:12 * Test Item Value Reference Range Interpretation Comme nts TSH (test code = 5407783626) See_Comment Biotin has been reported to cause a negative bias, interpret results relative to patient's use of biotin. [Automated message] The system which generated this result transmitted reference range: 0.45 - 4.70 mIU/L. The reference range was not used to interpret this result as normal/abnormal. Lab Interpretation (test code = 05767-5) Normal [facility] HospitalTROPONIN [id number] 21:43:21* Test Item Value Reference Range Interpretation Comments TROPONIN I (test code = 4851636810) 0.005 ng/mL See_Comment [Automated message] The system which generated this result transmitted reference range: <=0.034. The reference range was not used to interpret this result as normal/abnormal. RADHA (test code = RADHA) Reference (Normal) Range (defined by the 99th percentile reference limit): <= 0.034 ng/mL Note: Cardiac troponin begins to rise 3-4 hours after the onset of ischemia. Repeat in 4-6 hours if the sample was drawn within 3-4 hours of the onset of the symptom and found normal. Diagnosis of myocardial injury is made with acute changes in cTn concentrations with at least one serial sample above the 99th percentile upper reference limit (URL), taken together with the patient's clinical presentation. Biotin has been reported to cause a negative bias, interpret results relative to patient's use of biotin. Lab Interpretation (test code = 96760-0) Normal [facility] HospitalN-TERMINAL [id number] 21:43:21* Test Item Value Reference Range Interpretation Comme nts NT-proBNP (test code = 4931401123) 350 pg/mL See_Comment H [Automated message] The system which generated this result transmitted reference range: <=125. The reference range was not used to interpret this result as normal/abnormal. RADHA (test code = RADHA) Biotin has been reported to cause a negative bias, interpret results relative to patient's use of biotin. Lab Interpretation (test code = 05944-5) [facility]normal [facility] HospitalCOMP. METABOLIC PANEL (41161)2022-06-15 21:31:41* Test Item Value Reference Range Interpretation Comme nts NA (test code = 8972171148) 138 mmol/L 135-145 K (test code = 1014154493) 4.9 mmol/L 3.5-5.0 CL (test code = 9661042520) 108 mmol/L 98-108 CO2 TOTAL (test code = 7291921377) 22 mmol/L 23-31 L AGAP (test code = 5589781656) 2-16 BUN (test code = 0865028370) 20 mg/dL 7-23 GLUCOSE (test code = 1931083646) 179 mg/dL 70-110 H CREATININE (test code = 3300657097) 0.92 mg/dL 0.60-1.25 TOTAL BILI (test code = 8426130952) 0.5 mg/dL 0.1-1.1 CALCIUM (test code = 9179636134) 8.6 mg/dL 8.6-10.6 T PROTEIN (test code = 5994463303) 6.3 g/dL 6.3-8.2 ALBUMIN (test code = 7254414590) 3.8 g/dL 3.5-5.0 ALK PHOS (test code = 7846457856) 78 U/L 34-122 ALTv (test code = 1742-6) 26 U/L 5-50 AST(SGOT) (test code = 6325490807) 25 U/L 13-40 eGFR (test code = 3230173680) mL/min/1.73m2 RADHA (test code = RADHA) Association of Glomerular Filtration Rate (GFR) and Staging of Kidney Disease* + --+ --+ ------+| GFR (mL/min/1.73 m2) ?| With Kidney Damage ?| ?Without Kidney Damage+ --------+ --------+ +| ?>90 ?| ?Stage one ?| ? Normal ?+ ---+ ---+ -------+| ?60-89 ?| ?Stage two ?| ? Decreased GFR ? + --+ --+ ------+| ?30-59 ?| ?Stage three ?| ? Stage three ? + --+ --+ ------+| ?15-29 ?| ?Stage four ? | ? Stage four ?+ ---+ ---+ -------+| ?<15 (or dialysis) ? ?| ?Stage five ? | ? Stage five ?+ ---+ ---+ -------+ *Each stage assumes the associated GFR level has been in effect for at least three months. ?Stages 1 to 5, with or without kidney disease, indicate chronic kidney disease. Notes: Determination of stages one and two (with eGFR >59mL/min/1.73 m2) requires estimation of kidney damage for at least three months as defined by structural or functional abnormalities of the kidney, manifested by either:Pathological abnormalities or Markers of kidney damage (including abnormalities in the composition of the blood or urine or abnormalities in imaging tests). Lab Interpretation (test code = 73153-2) [facility]2023-01-06 21:31:41* Test Item Value Reference Range Interpretation Comme [facility] MAGNESIUM (test code = 0034759538) 1.6 mg/dL 1.7-2.4 L Lab Interpretation (test cod e = 81184-3) Abnormal [facility] HospitalPROTHROMBIN TIME / [id number] 21:28:48* Test Item Value Reference Range Interpretation Comme nts PROTIME PATIENT (test code = 5964-2) See_Comment [Automated duuin] The system which generated this result transmitted reference range: 10.1 - 12.6 Seconds. The reference range was not used to interpret this result as normal/abnormal. INR (test code = 6301-6) Normal INR <1.1; Warfarin Therapeutic range 2.0 to 3.0 or 2.5 to 3.5, depending upon the indications. Lab Interpretation (test code = 22986-0) Normal [facility] WITH [id number] 21:19:38* Test Item Value Reference Range Interpretation Comme nts WBC (test code = 6690-2) See_Comment [Automated ITS Compliancea ge] The system which generated this result transmitted reference range: 4.20 - 10.70 10*3/?L. The reference range was not used to interpret this result as normal/abnormal. RBC (test code = 789-8) See_Comment L [Automated messa ge] The system which generated this result transmitted reference range: 4.26 - 5.52 10*6/?L. The reference range was not used to interpret this result as normal/abnormal. HGB (test code = 718-7) 11.3 g/dL 12.2-16.4 L HCT (test code = 4544-3) 32.7 % 38.4-49.3 L MCV (test code = 787-2) 85.8 fL 81.7-95.6 MCH (test code = 785-6) 29.7 pg 26.1-32.7 MCHC (test code = 786-4) 34.6 g/dL 31.2-35.0 RDW-SD (test code = 08555-3) 39.4 fL 38.5-51.6 RDW-CV (test code = 788-0) 12.7 % 12.1-15.4 PLT (test code = 777-3) See_Comment [Automated messa ge] The system which generated this result transmitted reference range: 150 - 328 10*3/?L. The reference range was not used to interpret this result as normal/abnormal. MPV (test code = 49812-5) 10.2 fL 9.8-13.0 NRBC/100 WBC (test code = 5002615420) See_Comment [Automated Pixtr ssage] The system which generated this result transmitted reference range: 0.0 - 10.0 /100 WBCs. The reference range was not used to interpret this result as normal/abnormal. NRBC x10^3 (test code = 3220885392) See_Comment [Automated ITS Compliancea ge] The system which generated this result transmitted reference range: 10*3/?L. The reference range was not used to interpret this result as normal/abnormal. GRAN MAT (NEUT) % (test code = 770-8) 59.3 % IMM GRAN % (test code = 4678562411) 0.30 % LYMPH % (test code = 736-9) 28.9 % MONO % (test code = 5905-5) 8.4 % EOS % (test code = 713-8) 2.7 % BASO % (test code = 706-2) 0.4 % GRAN MAT x10^3(ANC) (test code = 8944227703) 3.95 10*3/uL 1.99-6.95 IMM GRAN x10^3 (test code = 2703492021) 0.00-0.06 LYMPH x10^3 (test code = 731-0) 1.93 10*3/uL 1.09-3.23 MONO x10^3 (test code = 742-7) 0.56 10*3/uL 0.36-1.02 EOS x10^3 (test code = 711-2) 0.18 10*3/uL 0.06-0.53 BASO x10^3 (test code = 704-7) 0.03 10*3/uL 0.01-0.09 Lab Interpretation (test code = 94365-2) Abnormal [facility] GLUCOSE (AUTOMATED)2022-06-15 19:56:29* Test Item Value Reference Range Interpretation Comme nts POCT GLU (test code = 4171852656) 253 mg/dL 70-110 H Lab Interpretation (test cod e = 90037-8) Abnormal [facility] GLUCOSE (AUTOMATED)2022-06-15 19:56:29* Test Item Value Reference Range Interpretation Comme nts POCT GLU (test code = 1122984309) 253 mg/dL 70-110 H Lab Interpretation (test cod e = 58189-8) Abnormal [facility] GLUCOSE (AUTOMATED)2022-06-14 13:46:23* Test Item Value Reference Range Interpretation Comme nts POCT GLU (test code = 1789357954) 85 mg/dL 70-110 Lab Interpretation (test cod e = 50937-0) [facility] HospitalTROP[facility]IN [id number] 22:38:31* Test Item Value Reference Range Interpretation Comments TROPONIN I (test code = 7549638439) 0.006 ng/mL See_Comment [Automated message] The system which generated this result transmitted reference range: <=0.034. The reference range was not used to interpret this result as normal/abnormal. RADHA (test code = RADHA) Reference (Normal) Range (defined by the 99th percentile reference limit): <= 0.034 ng/mL Note: Cardiac troponin begins to rise 3-4 hours after the onset of ischemia. Repeat in 4-6 hours if the sample was drawn within 3-4 hours of the onset of the symptom and found normal. Diagnosis of myocardial injury is made with acute changes in cTn concentrations with at least one serial sample above the 99th percentile upper reference limit (URL), taken together with the patient's clinical presentation. Biotin has been reported to cause a negative bias, interpret results relative to patient's use of biotin. Lab Interpretation (test code = 59124-2) Normal [facility] HospitalACTIVATED PARTIAL THRMPLAS [id number] 20:17:05* Test Item Value Reference Range Interpretation Comme [facility] APTT Patient (test code = 3173-2) See_Comment [Automated message] The system which generated this result transmitted reference range: 23 - 38 Seconds. The reference range was not used to interpret this result as normal/abnormal. RADHA (test code = RADHA) The [facility]UST patient population mean normal value for aPTT is 30 seconds. Lab Interpretation (test code = 25517-8) Normal [facility] HospitalProthrombin Time / [id number] 20:15:06* Test Item Value Reference Range Interpretation Comme [facility] PROTIME PATIENT (test code = 5964-2) See_Comment [Automated messa ge] The system which generated this result transmitted reference range: 12.0 - 14.7 Seconds. The reference range was not used to interpret this result as normal/abnormal. INR (test code = 6301-6) Normal INR <1.1; Warfarin Therapeutic range 2.0 to 3.0 or 2.5 to 3.5, depending upon the indications. Lab Interpretation (test code = 96368-8) Normal [facility] GLUCOSE (AUTOMATED)2022-05-10 18:19:10* Test Item Value Reference Range Interpretation Comme nts POCT GLU (test code = 4604222904) 167 mg/dL 70-110 H Lab Interpretation (test cod e = 07471-3) Abnormal [facility] GLUCOSE (AUTOMATED)2022-05-10 14:43:13* Test Item Value Reference Range Interpretation Comme nts POCT GLU (test code = 7098917534) 227 mg/dL 70-110 H Lab Interpretation (test cod e = 57685-6) [facility] HospitalPhosphorus [id number] 11:59:29* Test Item Value Reference Range Interpretation Comme nts PHOSPHORUS (test code = 6268635023) 3.4 mg/dL 2.5-5.0 Lab Interpretation (test cod e = 47428-3) Normal [facility] GLUCOSE (AUTOMATED)2022-05-10 09:44:03* Test Item Value Reference Range Interpretation Comme nts POCT GLU (test code = 5512800062) 159 mg/dL 70-110 H Lab Interpretation (test cod e = 82348-2) Abnormal [facility] GLUCOSE (AUTOMATED)2022-05-10 06:24:13* Test Item Value Reference Range Interpretation Comme nts POCT GLU (test code = 5011198679) 183 mg/dL 70-110 H Lab Interpretation (test cod e = 65771-3) Abnormal [facility] GLUCOSE (AUTOMATED)2022-05-10 02:01:17* Test Item Value Reference Range Interpretation Comme nts POCT GLU (test code = 0489425315) 189 mg/dL 70-110 H Notified Provide r Lab Interpretation (test code = 37259-8) Abnormal [facility] GLUCOSE (AUTOMATED)2022-05-09 22:15:19* Test Item Value Reference Range Interpretation Comme nts POCT GLU (test code = 9373039856) 286 mg/dL 70-110 H Lab Interpretation (test cod e = 38507-1) Abnormal [facility] GLUCOSE (AUTOMATED)2022-05-09 18:09:12* Test Item Value Reference Range Interpretation Comme nts POCT GLU (test code = 2624322733) 232 mg/dL 70-110 H Lab Interpretation (test cod e = 72453-9) Abnormal [facility] GLUCOSE (AUTOMATED)2022-05-09 18:09:12* Test Item Value Reference Range Interpretation Comme nts POCT GLU (test code = 4721092389) 232 mg/dL 70-110 H Lab Interpretation (test cod e = 72686-9) Abnormal [facility] GLUCOSE (AUTOMATED)2022-05-09 14:27:54* Test Item Value Reference Range Interpretation Comme nts POCT GLU (test code = 7356546041) 115 mg/dL 70-110 H Lab Interpretation (test cod e = 14361-3) Abnormal [facility] GLUCOSE (AUTOMATED)2022-05-09 14:27:54* Test Item Value Reference Range Interpretation Comme nts POCT GLU (test code = 5834339859) 115 mg/dL 70-110 H Lab Interpretation (test cod e = 36269-0) Abnormal [facility] Metabolic Panel (NA, K, CL, CO2, GLUCOSE, BUN, CREATININE, CA)2022-05-09 11:15:24* Test Item Value Reference Range Interpretation Comme nts NA (test code = 4594306081) 137 mmol/L 135-145 K (test code = 2708289362) 4.3 mmol/L 3.5-5.0 CL (test code = 6159663983) 105 mmol/L 98-108 CO2 TOTAL (test code = 6329499951) 28 mmol/L 23-31 AGAP (test code = 2332679911) 2-16 BUN (test code = 2642023919) 12 mg/dL 7-23 GLUCOSE (test code = 5232133510) 199 mg/dL 70-110 H CREATININE (test code = 5114090419) 0.89 mg/dL 0.60-1.25 CALCIUM (test code = 5577200597) 8.1 mg/dL 8.6-10.6 L eGFR (test code = 0581033120) mL/min/1.73m2 RADHA (test code = RADHA) Association of Glomerular Filtration Rate (GFR) and Staging of Kidney Disease* + --+ --+ ------+| GFR (mL/min/1.73 m2) ?| With Kidney Damage ?| ?Without Kidney Damage+ --------+ --------+ +| ?>90 ?| ?Stage one ?| ? Normal ?+ ---+ ---+ -------+| ?60-89 ?| ?Stage two ?| ? Decreased GFR ? + --+ --+ ------+| ?30-59 ?| ?Stage three ?| ? Stage three ? + --+ --+ ------+| ?15-29 ?| ?Stage four ? | ? Stage four ?+ ---+ ---+ -------+| ?<15 (or dialysis) ? ?| ?Stage five ? | ? Stage five ?+ ---+ ---+ -------+ *Each stage assumes the associated GFR level has been in effect for at least three months. ?Stages 1 to 5, with or without kidney disease, indicate chronic kidney disease. Notes: Determination of stages one and two (with eGFR >59mL/min/1.73 m2) requires estimation of kidney damage for at least three months as defined by structural or functional abnormalities of the kidney, manifested by either:Pathological abnormalities or Markers of kidney damage (including abnormalities in the composition of the blood or urine or abnormalities in imaging tests). Lab Interpretation (test code = 09761-0) [facility]normal [facility] Mefhl0233-11-40 11:15:24* Test Item Value Reference Range Interpretation Comme nts MAGNESIUM (test code = 8221461709) 1.8 mg/dL 1.7-2.4 Lab Interpretation (test cod e = 64632-0) Normal [facility] Vdmti0589-68-80 11:15:24* Test Item Value Reference Range Interpretation Comme nts PHOSPHORUS (test code = 1889156858) 3.2 mg/dL 2.5-5.0 Lab Interpretation (test cod e = 63777-6) Normal [facility] (NA, K, CL, CO2, GLUCOSE, BUN, CREATININE, CA)2022-05-09 11:15:24* Test Item Value Reference Range Interpretation Comme nts NA (test code = 0887597843) 137 mmol/L 135-145 K (test code = 4468452792) 4.3 mmol/L 3.5-5.0 CL (test code = 4353475825) 105 mmol/L 98-108 CO2 TOTAL (test code = 1623223546) 28 mmol/L 23-31 AGAP (test code = 2771145256) 2-16 BUN (test code = 7372758585) 12 mg/dL 7-23 GLUCOSE (test code = 3533728032) 199 mg/dL 70-110 H CREATININE (test code = 8756428913) 0.89 mg/dL 0.60-1.25 CALCIUM (test code = 6142528980) 8.1 mg/dL 8.6-10.6 L eGFR (test code = 9917532742) mL/min/1.73m2 RADHA (test code = RADHA) Association of Glomerular Filtration Rate (GFR) and Staging of Kidney Disease* + --+ --+ ------+| GFR (mL/min/1.73 m2) ?| With Kidney Damage ?| ?Without Kidney Damage+ --------+ --------+ +| ?>90 ?| ?Stage one ?| ? Normal ?+ ---+ ---+ -------+| ?60-89 ?| ?Stage two ?| ? Decreased GFR ? + --+ --+ ------+| ?30-59 ?| ?Stage three ?| ? Stage three ? + --+ --+ ------+| ?15-29 ?| ?Stage four ? | ? Stage four ?+ ---+ ---+ -------+| ?<15 (or dialysis) ? ?| ?Stage five ? | ? Stage five ?+ ---+ ---+ -------+ *Each stage assumes the associated GFR level has been in effect for at least three months. ?Stages 1 to 5, with or without kidney disease, indicate chronic kidney disease. Notes: Determination of stages one and two (with eGFR >59mL/min/1.73 m2) requires estimation of kidney damage for at least three months as defined by structural or functional abnormalities of the kidney, manifested by either:Pathological abnormalities or Markers of kidney damage (including abnormalities in the composition of the blood or urine or abnormalities in imaging tests). Lab Interpretation (test code = 55448-0) [facility] Gmpbr0530-81-07 11:15:24* Test Item Value Reference Range Interpretation Comme nts MAGNESIUM (test code = 1376828369) 1.8 mg/dL 1.7-2.4 Lab Interpretation (test cod e = 68113-4) Normal [facility] Zeupn1896-63-90 11:15:24* Test Item Value Reference Range Interpretation Comme nts PHOSPHORUS (test code = 6276231781) 3.2 mg/dL 2.5-5.0 Lab Interpretation (test cod e = 11372-1) Normal [facility]CBC with Izducwojhvyl8287-70-99 10:21:37* Test Item Value Reference Range Interpretation Comme nts WBC (test code = 6690-2) See_Comment [Automated messa ge] The system which generated this result transmitted reference range: 4.20 - 10.70 10*3/?L. The reference range was not used to interpret this result as normal/abnormal. RBC (test code = 789-8) See_Comment L [Automated messa ge] The system which generated this result transmitted reference range: 4.26 - 5.52 10*6/?L. The reference range was not used to interpret this result as normal/abnormal. HGB (test code = 718-7) 10.5 g/dL 12.2-16.4 L HCT (test code = 4544-3) 30.3 % 38.4-49.3 L MCV (test code = 787-2) 84.6 fL 81.7-95.6 MCH (test code = 785-6) 29.3 pg 26.1-32.7 MCHC (test code = 786-4) 34.7 g/dL 31.2-35.0 RDW-SD (test code = 35614-4) 40.7 fL 38.5-51.6 RDW-CV (test code = 788-0) 13.1 % 12.1-15.4 PLT (test code = 777-3) See_Comment [Automated ITS Compliancea ge] The system which generated this result transmitted reference range: 150 - 328 10*3/?L. The reference range was not used to interpret this result as normal/abnormal. MPV (test code = 09431-6) 10.4 fL 9.8-13.0 NRBC/100 WBC (test code = 8553061417) See_Comment [Automated me ssage] The system which generated this result transmitted reference range: 0.0 - 10.0 /100 WBCs. The reference range was not used to interpret this result as normal/abnormal. NRBC x10^3 (test code = 9299264695) See_Comment [Automated messa ge] The system which generated this result transmitted reference range: 10*3/?L. The reference range was not used to interpret this result as normal/abnormal. GRAN MAT (NEUT) % (test code = 770-8) 60.2 % IMM GRAN % (test code = 5162201617) 0.30 % LYMPH % (test code = 736-9) 25.9 % MONO % (test code = 5905-5) 10.0 % EOS % (test code = 713-8) 3.2 % BASO % (test code = 706-2) 0.4 % GRAN MAT x10^3(ANC) (test code = 0333308409) 4.14 10*3/uL 1.99-6.95 IMM GRAN x10^3 (test code = 6747069070) 0.00-0.06 LYMPH x10^3 (test code = 731-0) 1.78 10*3/uL 1.09-3.23 MONO x10^3 (test code = 742-7) 0.69 10*3/uL 0.36-1.02 EOS x10^3 (test code = 711-2) 0.22 10*3/uL 0.06-0.53 BASO x10^3 (test code = 704-7) 0.03 10*3/uL 0.01-0.09 Lab Interpretation (test code = 06214-1) Abnormal [facility] with Hojtmshapxue9227-27-79 10:21:37* Test Item Value Reference Range Interpretation Comme nts WBC (test code = 6690-2) See_Comment [Automated messa ge] The system which generated this result transmitted reference range: 4.20 - 10.70 10*3/?L. The reference range was not used to interpret this result as normal/abnormal. RBC (test code = 789-8) See_Comment L [Automated messa ge] The system which generated this result transmitted reference range: 4.26 - 5.52 10*6/?L. The reference range was not used to interpret this result as normal/abnormal. HGB (test code = 718-7) 10.5 g/dL 12.2-16.4 L HCT (test code = 4544-3) 30.3 % 38.4-49.3 L MCV (test code = 787-2) 84.6 fL 81.7-95.6 MCH (test code = 785-6) 29.3 pg 26.1-32.7 MCHC (test code = 786-4) 34.7 g/dL 31.2-35.0 RDW-SD (test code = 76495-7) 40.7 fL 38.5-51.6 RDW-CV (test code = 788-0) 13.1 % 12.1-15.4 PLT (test code = 777-3) See_Comment [Automated ITS Compliancea ge] The system which generated this result transmitted reference range: 150 - 328 10*3/?L. The reference range was not used to interpret this result as normal/abnormal. MPV (test code = 07412-7) 10.4 fL 9.8-13.0 NRBC/100 WBC (test code = 7215831546) See_Comment [Automated Pixtr ssage] The system which generated this result transmitted reference range: 0.0 - 10.0 /100 WBCs. The reference range was not used to interpret this result as normal/abnormal. NRBC x10^3 (test code = 3870299342) See_Comment [Automated ITS Compliancea ge] The system which generated this result transmitted reference range: 10*3/?L. The reference range was not used to interpret this result as normal/abnormal. GRAN MAT (NEUT) % (test code = 770-8) 60.2 % IMM GRAN % (test code = 0643043650) 0.30 % LYMPH % (test code = 736-9) 25.9 % MONO % (test code = 5905-5) 10.0 % EOS % (test code = 713-8) 3.2 % BASO % (test code = 706-2) 0.4 % GRAN MAT x10^3(ANC) (test code = 4855927463) 4.14 10*3/uL 1.99-6.95 IMM GRAN x10^3 (test code = 9190871144) 0.00-0.06 LYMPH x10^3 (test code = 731-0) 1.78 10*3/uL 1.09-3.23 MONO x10^3 (test code = 742-7) 0.69 10*3/uL 0.36-1.02 EOS x10^3 (test code = 711-2) 0.22 10*3/uL 0.06-0.53 BASO x10^3 (test code = 704-7) 0.03 10*3/uL 0.01-0.09 Lab Interpretation (test code = 74167-0) Abnormal [facility] GLUCOSE (AUTOMATED)2022-05-09 09:53:15* Test Item Value Reference Range Interpretation Comme nts POCT GLU (test code = 7325622715) 243 mg/dL 70-110 H Lab Interpretation (test cod e = 02305-9) Abnormal [facility] GLUCOSE (AUTOMATED)2022-05-09 09:53:15* Test Item Value Reference Range Interpretation Comme nts POCT GLU (test code = 2491964703) 243 mg/dL 70-110 H Lab Interpretation (test cod e = 48312-7) Abnormal [facility] GLUCOSE (AUTOMATED)2022-05-09 06:06:14* Test Item Value Reference Range Interpretation Comme nts POCT GLU (test code = 8855254471) 209 mg/dL 70-110 H Lab Interpretation (test cod e = 11040-3) Abnormal [facility] GLUCOSE (AUTOMATED)2022-05-09 06:06:14* Test Item Value Reference Range Interpretation Comme nts POCT GLU (test code = 7018031071) 209 mg/dL 70-110 H Lab Interpretation (test cod e = 04846-4) Abnormal [facility] GLUCOSE (AUTOMATED)2022-05-09 02:55:32* Test Item Value Reference Range Interpretation Comme nts POCT GLU (test code = 3561773108) 140 mg/dL 70-110 H Lab Interpretation (test cod e = 92034-9) Abnormal [facility] GLUCOSE (AUTOMATED)2022-05-09 02:55:32* Test Item Value Reference Range Interpretation Comme nts POCT GLU (test code = 7053389520) 140 mg/dL 70-110 H Lab Interpretation (test cod e = 10476-2) Abnormal [facility] GLUCOSE (AUTOMATED)2022-05-08 22:21:17* Test Item Value Reference Range Interpretation Comme nts POCT GLU (test code = 7217465015) 102 mg/dL 70-110 Lab Interpretation (test cod e = 99010-4) Normal [facility] GLUCOSE (AUTOMATED)2022-05-08 22:21:17* Test Item Value Reference Range Interpretation Comme nts POCT GLU (test code = 5195403745) 102 mg/dL 70-110 Lab Interpretation (test cod e = 33674-9) [facility] Screen - ONCE Hdqskdt7258-69-79 12:51:42* Test Item Value Reference Range Interpretation Comme nts ABO & RH (test code = 20) A POSITIVE Performed at [facility] Laboratory [address] Free: [phone] No. [id number] IAT (test code = 1185) Negative Performed at [address] Free: [phone] No. [id number] [facility] - ONCE Dnndbtn1828-23-29 12:51:42* Test Item Value Reference Range Interpretation Comme nts ABO & RH (test code = 20) A POSITIVE Performed at [facility] Laboratory [address] Free: [phone] No. [id number] IAT (test code = 1185) Negative Performed at [address] Free: [phone] No. [id number] [facility] GLUCOSE (AUTOMATED)2022-05-08 12:14:43* Test Item Value Reference Range Interpretation Comme nts POCT GLU (test code = 5032519794) 75 mg/dL 70-110 Lab Interpretation (test cod e = 67910-8) Normal [facility]SE (AUT[facility]ATED)2022-05-08 12:14:43* Test Item Value Reference Range Interpretation Comme nts POCT GLU (test code = 8844909399) 75 mg/dL 70-110 Lab Interpretation (test cod e = 06737-9) Normal [facility] HospitalTROPONIN P7514-07-26 00:17:55* Test Item Value Reference Range Interpretation Comments TROPONIN I (test code = 7061059675) 0.008 ng/mL See_Comment [Automated message] The system which generated this result transmitted reference range: <=0.034. The reference range was not used to interpret this result as normal/abnormal. RADHA (test code = RADHA) Reference (Normal) Range (defined by the 99th percentile reference limit): <= 0.034 ng/mL Note: Cardiac troponin begins to rise 3-4 hours after the onset of ischemia. Repeat in 4-6 hours if the sample was drawn within 3-4 hours of the onset of the symptom and found normal. Diagnosis of myocardial injury is made with acute changes in cTn concentrations with at least one serial sample above the 99th percentile upper reference limit (URL), taken together with the patient's clinical presentation. Biotin has been reported to cause a negative bias, interpret results relative to patient's use of biotin. Lab Interpretation (test code = 17275-8) Normal [facility] HospitalN-TERMINAL EER-SUD6803-80-25 00:14:38* Test Item Value Reference Range Interpretation Comme [facility] NT-proBNP (test code = 6373514684) 374 pg/mL See_Comment H [Automated message] The system which generated this result transmitted reference range: <=125. The reference range was not used to interpret this result as normal/abnormal. RADHA (test code = RADHA) Biotin has been reported to cause a negative bias, interpret results relative to patient's use of biotin. Lab Interpretation (test code = 12959-5) [facility]normal [facility]MAGN[facility]IUM2022-10-25 00:06:16* Test Item Value Reference Range Interpretation Comme nts MAGNESIUM (test code = 8777300321) 1.3 mg/dL 1.7-2.4 L Lab Interpretation (test cod e = 13170-1) [facility]normal [facility] HospitalCOMP. METABOLIC PANEL (85736)2022-04-03 00:05:56* Test Item Value Reference Range Interpretation Comme nts NA (test code = 3188519330) 144 mmol/L 135-145 K (test code = 4752061080) 4.8 mmol/L 3.5-5 CL (test code = 1693175075) 103 mmol/L 98-108 CO2 TOTAL (test code = 8142670888) 30 mmol/L 23-31 AGAP (test code = 4264619779) 2-16 BUN (test code = 6481048176) 20 mg/dL 7-23 GLUCOSE (test code = 4186056477) 107 mg/dL 70-110 CREATININE (test code = 0863637342) 0.94 mg/dL 0.6-1.25 TOTAL BILI (test code = 8976378803) 0.4 mg/dL 0.1-1.1 CALCIUM (test code = 3004013657) 9.8 mg/dL 8.6-10.6 T PROTEIN (test code = 9184985151) 6.7 g/dL 6.3-8.2 ALBUMIN (test code = 0965356687) 4.5 g/dL 3.5-5 ALK PHOS (test code = 8569342722) 73 U/L 34-122 ALTv (test code = 1742-6) 24 U/L 5-50 AST(SGOT) (test code = 1564031704) 25 U/L 13-40 eGFR (test code = 5441837498) mL/min/1.73m2 RADHA (test code = RADHA) Association of Glomerular Filtration Rate (GFR) and Staging of Kidney Disease* + + +- +| GFR (mL/min/1.73 m2) ?| With Kidney Damage ?| ?Without Kidney Damage+ ------+ ----+ ------+| ?>90 ?| ?Stage one ?| ? Normal ?+ -+ + -+| ?60-89 ?| ?Stage two ?| ? Decreased GFR ? + + +- +| ?30-59 ?| ?Stage three ?| ? Stage three ? + + +- +| ?15-29 ?| ?Stage four ? | ? Stage four ?+ -+ + -+| ?<15 (or dialysis) ? ?| ?Stage five ? | ? Stage five ?+ -+ + -+ *Each stage assumes the associated GFR level has been in effect for at least three months. ?Stages 1 to 5, with or without kidney disease, indicate chronic kidney disease. Notes: Determination of stages one and two (with eGFR >59mL/min/1.73 m2) requires estimation of kidney damage for at least three months as defined by structural or functional abnormalities of the kidney, manifested by either:Pathological abnormalities or Markers of kidney damage (including abnormalities in the composition of the blood or urine or abnormalities in imaging tests). [facility] WITH [id number] 23:54:15* Test Item Value Reference Range Interpretation Comme nts WBC (test code = 6690-2) See_Comment [[employer]] The system which generated this result transmitted reference range: 4.20 - 10.70 10*3/?L. The reference range was not used to interpret this result as normal/abnormal. RBC (test code = 789-8) See_Comment [[employer]] The system which generated this result transmitted reference range: 4.26 - 5.52 10*6/?L. The reference range was not used to interpret this result as normal/abnormal. HGB (test code = 718-7) 13.0 g/dL 12.2-16.4 HCT (test code = 4544-3) 37.0 % 38.4-49.3 L MCV (test code = 787-2) 84.3 fL 81.7-95.6 MCH (test code = 785-6) 29.6 pg 26.1-32.7 MCHC (test code = 786-4) 35.1 g/dL 31.2-35 H RDW-SD (test code = 53445-1) 37.9 fL 38.5-51.6 L RDW-CV (test code = 788-0) 12.5 % 12.1-15.4 PLT (test code = 777-3) See_Comment [[employer]] The system which generated this result transmitted reference range: 150 - 328 10*3/?L. The reference range was not used to interpret this result as normal/abnormal. MPV (test code = 29464-4) 10.4 fL 9.8-13 NRBC/100 WBC (test code = 8656881803) See_Comment [Automated me ssage] The system which generated this result transmitted reference range: 0.0 - 10.0 /100 WBCs. The reference range was not used to interpret this result as normal/abnormal. NRBC x10^3 (test code = 8064021149) See_Comment [Automated messa ge] The system which generated this result transmitted reference range: 10*3/?L. The reference range was not used to interpret this result as normal/abnormal. GRAN MAT (NEUT) % (test code = 770-8) 56.5 % IMM GRAN % (test code = 0744463039) 0.40 % LYMPH % (test code = 736-9) 32.1 % MONO % (test code = 5905-5) 8.0 % EOS % (test code = 713-8) 2.3 % BASO % (test code = 706-2) 0.7 % GRAN MAT x10^3(ANC) (test code = 1106680398) 4.22 10*3/uL 1.99-6.95 IMM GRAN x10^3 (test code = 3814071997) 0.03 10*3/uL 0-0.06 LYMPH x10^3 (test code = 731-0) 2.40 10*3/uL 1.09-3.23 MONO x10^3 (test code = 742-7) 0.60 10*3/uL 0.36-1.02 EOS x10^3 (test code = 711-2) 0.17 10*3/uL 0.06-0.53 BASO x10^3 (test code = 704-7) 0.05 10*3/uL 0.01-0.09 Lab Interpretation (test code = 31750-8) Abnormal [facility] 1 [id number] 19:42:00 *.*.*.*.*.*.*.*.*.*.*.*.*.*FINAL*.*.*.*.*.*.*.*.*.*.*.*.*.*.*CHEST, 1 VIEW HISTORY: post heart surgery COMPARISON:Chest radiograph dated 06/22/2017. FINDINGS: The right IJ line terminates over the cavoatrial reduction. Interval removal ofthe [place]-Cody catheter and the mediastinal drains. Lung volumes are low. Bilateral moderate pleural effusions are present withoverlying passive atelectasis. Thereis moderate pulmonary vascular congestion.No focal consolidation or pneumothorax is identified. Thecardiac silhouette is unchanged. Multiple sternotomy wires. No acute osseousabnormality. Bilateral carotid stents are partially visualized. Five radiopaqueclips overlie the left upper abdominal quadrant. ALMAZ PAZ MD DIXON, LINDEN BROOK, MD Personally interpreted by: ALMAZ PAZ MD /Signed/ ALMAZ PAZ MDUnUT [facility] History and Physical Notes Date/Time Note Provider Source 2023-11-14 23:46:46 [facility] Hospitalist Admission H&P Date of Service: 11/14/2023 CHIEF COMPLAINT: Foot pain HISTORY OF PRESENT ILLNESS Elgin Castañeda is a 68 year old male who presents with pain of the left foot. Patient felt like he had a palpable stone in the bottom of the left foot. When patient took his shoe off he had significant swelling of the left foot along with significant erythema and edema. Patient with a history of diabetes. Patient states his blood sugars been well-controlled. Patient also with vascular disease with a history of coronary artery bypass grafting as well as carotid artery disease. At this time, patient will be admitted to the hospital for IV antibiotic therapy. Continue with strict blood sugar control. If patient's erythema does not improve will consult podiatry. Patient's wound looks superficial at this time and will continue monitoring. Podiatry will be consulted as well. PAST MEDICAL HISTORY Past Medical History: Diagnosis Date Anxiety BPH (benign prostatic hypertrophy) Carotid arterial disease Cataract Diabetes mellitus Hyperlipidemia YUDITH on CPAP 05/2017 noncompliant with cpap S/P CABG x 3 on 06/21/2017 06/21/2017 PAST SURGICAL HISTORY Past Surgical History: Procedure Laterality Date ANGIOPLASTY Right 05/06/2018 Surgeon: Christie Hanks MD; Location: [facility] ARTERIOGRAM Bilateral 02/20/2017 Surgeon: Efraín Davey MD; Location: [facility] CAROTID ANGIOGRAPHY Bilateral 05/06/2018 Surgeon: Christie Hanks MD; Location: [facility] CAROTID ENDARTERECTOMY Right 05/08/2022 Surgeon: Jose E Moore MD; Location: [facility] CAROTID STENTING Right 03/01/2017 Surgeon: Tanvi Sue Jr., MD; Location: [facility] CAROTID STENTING Left 03/15/2017 Surgeon: Efraín Davey MD; Location: [facility] COLONOSCOPY N/A 12/13/2021 Surgeon: Og Escobar MD; Location: [facility]) OR LOCATION CORONARY ARTERY BYPASS GRAFT N/A 06/21/2017 Surgeon: Suzie Kennedy MD; Location: [facility] DORSAL WRIST Right tendon repair FIBROSCAN (SHX) N/A 11/29/2021 Surgeon: Mckayla Palacios ACNP; Location: ENDOSCOPY ([facility]) OR LOCATION PHACOEMULSIFICATION OF CATARACT WITH INTRAOCULAR LENS IMPLANT Left 06/14/2022 Surgeon: Stephon Escobar MD; Location: [facility] 2ND FLOOR OR LOCATION [place] TCAT IV STENT CRV CRTD ART EMBOLIC PROTECJ 03/01/2017 TONSILLECTOMY ALLERGIES Allergies Allergen Reactions Toradol [Ketorolac] Hallucinations MEDICATIONS Current home medication list reviewed: Patient's Medications START taking these medications No medications on file CONTINUE taking these medications which have NOT CHANGED ALBUTEROL 90 MCG/ACTUATION INHALER Inhale 2 Puffs every 6 (six) hours as needed for Wheezing or Shortness of Breath. AMINO ACIDS/CHROMIUM (CHROMIMIN ORAL) Take by mouth. ASPIRIN 81 MG CHEWABLE TABLET Take 1 tablet by mouth daily. ATORVASTATIN 80 MG TABLET Take 1 tablet by mouth at bedtime. BLOOD SUGAR DIAGNOSTIC ([employer]ativity TechnologiesUCH VERIO TEST STRIPS) STRIP Use as directed to check blood sugars daily E11.40 E.65 CLOPIDOGREL 75 MG TABLET TAKE 1 TABLET BY MOUTH DAILY. CYCLOBENZAPRINE 10 MG TABLET Take 1 tablet by mouth 3 (three) times daily as needed for Muscle Spasms. DIAZEPAM (VALIUM) 2 MG TABLET Take 1 tablet by mouth 3 (three) times daily as needed for Muscle Spasms. EZETIMIBE 10 MG TABLET Take 10 mg by mouth in the morning. FEXOFENADINE 180 MG TABLET Take 180 mg by mouth daily. FLUOXETINE 20 MG CAPSULE TAKE 1 CAPSULE BY MOUTH EVERY DAY FLUTICASONE (FLONASE SENSIMIST) 27.5 MCG/ACTUATION NASAL SPRAY Use 2 Sprays in each nostril daily. FLUTICASONE PROPIONATE 50 MCG/ACTUATION NASAL SPRAY GABAPENTIN 100 MG CAPSULE TAKE 1 CAPSULE BY MOUTH AT BEDTIME GLIMEPIRIDE 4 MG TABLET Take 1 tablet by mouth in the morning and 1 tablet in the evening. PLEASE CONTACT CLINIC TO SCHEDULE A FOLLOW UP BEFORE ADDITIONAL REFILLS CAN BE APPROVED INSULIN NEEDLES, DISPOSABLE, (BONITA PEN NEEDLE) 32 GAUGE X 5/32" NDLE USE DIRECTED- ONCE DAILY. DX:E11.65 ISOSORBIDE MONONITRATE 30 MG 24 HR TABLET TAKE 1 TABLET BY MOUTH IN THE MORNING. KCL 20 MEQ TABLET TAKE 1 TABLET BY MOUTH DAILY LANCETS ([employer] DELICA PLUS LANCET) 30 GAUGE MISC Use as directed to check blood sugars once daily E11.40 E11.65 METFORMIN ER 500 MG 24 HR TABLET TAKE 2 TABLETS BY MOUTH 2 TIMES DAILY WITH MEALS. MOXIFLOXACIN 0.5 % OPHTHALMIC DROPS Place 1 Drop in left eye 4 (four) times daily. Start 1 day after surgery ONDANSETRON 4 MG DISINTEGRATING TABLET Take 1 tablet by mouth every 4 (four) hours as needed for Nausea and Vomiting (N/V). PREDNISOLONE ACETATE 1 % OPHTHALMIC SUSPENSION DROPS Place 1 Drop in left eye 4 (four) times daily. TAMSULOSIN 0.4 MG 24 HR CAPSULE TAKE 1 CAPSULE BY MOUTH DAILY. TRESIBA FLEXTOUCH U-100 100 UNIT/ML (3 ML) INPN INJECT 24 UNITS UNDER THE SKIN DAILY. START taking Modified Medications as Prescribed No medications on file STOP taking these medications ALPRAZOLAM 1 MG TABLET TAKE 1 TABLET BY MOUTH THREE TIMES DAILY NEEDED FAMILY HISTORY Family History Problem Relation Age of Onset No Significant Medical Problems Mother Cancer Father No Significant Medical Problems Sister SOCIAL HISTORY Social History Socioeconomic History Marital status: Tobacco Use Smoking status: Never Smokeless tobacco: Never Substance and Sexual Activity Alcohol use: No Alcohol/week: 0.0 standard drinks of alcohol Drug use: No Sexual activity: Yes Partners: Female Social History Narrative [employer] for [employer] REVIEW OF SYSTEMS 10 systems negative except per HPI PHYSICAL EXAMINATION BP (!) 184/98 | Pulse 72 | Temp 36.8 ?C (98.2 ?F) (Oral) | Resp 20 | Ht 1.829 m (6') | Wt 102.5 kg (226 lb) | SpO2 98% | BMI 30.65 kg/m? General: No acute distress HEENT: Normal oral mucosa, anicteric sclerae, NCAT Cardiovascular: RRR Lungs: Symmetric expansion, clear bilaterally Abdomen: Soft, NTND Musculoskeletal: No synovitis, normal muscle mass Genitourinary: Normal Skin: No rash, no skin lesions Extremities: No clubbing, no cyanosis, edema of the left foot; erythema of the left foot as well Neuro: AAOx3, no focal deficits Psych: Normal affect LABS - reviewed pertinent labs as below: CBC BMP PT/INR WHITE BLOOD CELL COUNT-Q (Thousand/uL) Date Value 05/22/2016 5.8 WBC (10*3/?L) Date Value 11/14/2023 8.36 NA (mmol/L) Date Value 11/14/2023 136 SODIUM-Q (mmol/L) Date Value 05/13/2017 142 No results found for: "PT" RED BLOOD CELL COUNT-Q (Million/uL) Date Value 05/22/2016 4.76 RBC (10*6/?L) Date Value 11/14/2023 4.20 (L) K (mmol/L) Date Value 11/14/2023 4.2 POTASSIUM-Q (mmol/L) Date Value 05/13/2017 4.8 INR (no units) Date Value 06/15/2022 1.0 PLATELET COUNT-Q (Thousand/uL) Date Value 05/22/2016 177 PLT (10*3/?L) Date Value 11/14/2023 225 CALCIUM (mg/dL) Date Value 11/14/2023 8.8 CALCIUM-Q (mg/dL) Date Value 05/13/2017 9.7 HGB (g/dL) Date Value 11/14/2023 12.5 HEMOGLOBIN-Q (g/dL) Date Value 05/22/2016 14.2 CL (mmol/L) Date Value 11/14/2023 102 CHLORIDE-Q (mmol/L) Date Value 05/13/2017 104 aPTT HCT (%) Date Value 11/14/2023 37.3 (L) HEMATOCRIT-Q (%) Date Value 05/22/2016 42.0 BUN (mg/dL) Date Value 11/14/2023 23 UREA NITROGEN (BUN)-Q (mg/dL) Date Value 05/13/2017 12 PARTIAL THROMBOPLASTIN$TIME, ACTIVATED-Q (sec) Date Value 05/13/2017 28 APTT Patient (Seconds) Date Value 05/14/2022 26 CREATININE (mg/dL) Date Value 11/14/2023 1.25 CREATININE-Q (mg/dL) Date Value 05/13/2017 0.91 IMAGING - reviewed, pertinent results as below: Hospital Encounter on 11/14/23 XR FOOT 3+ VW LEFT Narrative ORDERING PHYSICIAN: SINGER LANDA HISTORY: pain COMPARISON: None available. TECHNIQUE: 3 views of left foot. FINDINGS: Mild forefoot soft tissue swelling. Large bulky calcaneal spurs. Bipartite lateral hallux sesamoid bone. Degenerative findings at the first metatarsophalangeal joint. No acute fracture or malalignment. Joint spaces are maintained. No radiopaque foreign body. Impression 1. Moderate left forefoot soft tissue swelling without acute displaced fracture. 2. Mild osteoarthritis at the first metatarsophalangeal joint. 3. Large bulky calcaneal heel spurs. RL: 1918 END OF REPORT SSMENT: 1. Left foot cellulitis 2. History of vascular disease; coronary artery disease and carotid atherosclerotic disease 3. Type 1 diabetes 4. Hyperlipidemia 5. Obstructive sleep apnea 6. BPH 7. Anxiety disorder PLAN: 1. Left foot cellulitis in a patient with history of diabetes and vascular disease; continue with IV antibiotic therapy and strict blood sugar control. Continue with antiplatelet therapy and statin therapy as well. Podiatry is been consulted. Patient appears to have minimal erythema at this time. Continue with IV antibiotic regimen and will keep left foot elevated. Patient will be admitted to the hospital for inpatient hospitalization. 2. Obstructive sleep apnea; continue with CPAP 3. BPH; Flomax 4. Anxiety disorder; continue with anxiolytics 5. GI DVT prophylaxis DVT prophylaxis: enoxaparin Stress ulcer prophylaxis: pantoprazole Code status: FULL Advanced Care Planning (Z71.89) Above assessment and plan discussed at length with patient, patient expressed full understanding. Questions and concerned addressed. Surrogate decision maker: NO Level of care expected after discharge: HOME Time spent: 3 minutes discussing the advanced care plan Smoking Cessation: (Z71.6) Tobacco user?: NO Patient will require inpatient stay of 2 midnights or more given high risk of morbidity and mortality [place] [employer]PERATOR was verified during stay Carlos Escobar MD [facility] Notes Date/Time Note Provider Source 2024-03-19 09:00:00 Images from the original note were not included. Venipuncture collection performed by clean technique on the left anticubitus. Total of 1 attempts were made. Slight pressure and a bandage/dressing were applied to the site(s). The patient experienced no complications. The following specimens were processed according to instructions and sent to [facility] per lab order on 03/19/2024 : LT BLUE SST 1 RED LAV 1 PPT DK GREEN (LiHep) DK GREEN (SodH) ESCOBAR DK BLUE (K2) DK BLUE (S) ACD Blood Culture [facility] 2024-03-19 09:00:00 Images from the original note were not included. Patient has been identified by and name and was provided with cup, antiseptic towelette, and clean catch instructions. 4 urine specimen(s) sent. Unpreserved 3 Urine Culture 1 Aptima tube Other urine [facility] 2024-01-22 11:40:00 Members Preferred Language Nigerian Encounter Date: 2024-01-22 VITALS ### HISTORY OF PRESENT ILLNESS Patient is a 68 y/o male who is being followed up with [facility] Clinical Pharmacy team. ASSESSMENT PLAN Utilize Assessment/Plan Macros ⭐ENDOCRINE/DIABETES (A1c + Eye Exam+ Kidney Desease Screening*) Most recent Hg A1C Result Range: Greater than or equal to 9.0% Is member eligible for [facility]?: Yes Is member eligible AND agreeable to working with [facility]?: No Have you had an eye exam including a retinopathy exam in the last 2 years?: Yes When was the patient's last eye exam assessing for retinopathy?: 2022 Result of patient's most recent retinopathy exam: Result unknown Jaylin Lee [facility] 2023-11-19 15:30:50 Pt given printed and verbal discharge instructions regarding left leg cellulitis and type 2 diabetes mellitus with hyperglycemia, encouraged hydration, 1 Prescriptions provided Pt verbalized understanding of instructions, pt awake alert oriented, resp reg unlabored, skin w/d, color appropriate for race, moves all ext well,pt encouraged to follow up with pcp. Advised to seek medical attention for new/prolonged/worsening of symptoms, Symptoms improved. No adverse reaction to meds given in ER noted upon discharge PIV d'cd, dressing to site, catheter in tact. Awake, alert oriented, resp reg unlabored, skin w/d, pt leaving amb with steady gait, in no apparent distress, [facility] 2023-11-19 14:55:00 Report handed over to HARVEY Purcell. Amalia Pitt RN [facility] 2023-11-19 13:11:38 Patient arrived with significant other via private care c/o of a left diabetic foot ulcer. The wound started about 2 weeks ago. Hospitalized over the weekend for IV antibiotics. Discharged with antibiotics and still taking the antibiotics at home but patient believes the wound is getting worse. Jazzy Garcia RN [facility] 2023-11-19 13:00:00 [facility] Emergency Department Note Patient Name: Elgin Castañeda Date of : 1955 68 year old male Treatment Room: TX3/TX3 Primary Care Physician: Josiah Torres Patient Escorted by: Family [5] Mode of Arrival: Personal means [1] EMS Treatment Prior to ED Arrival: INTERLOCKER treatment: Antibiotic Travel and Exposure Screening: Symptoms Does patient have any of these symptoms?: (not recorded) Exposure Screening Has patient had contact with someone with a communicable disease in the last month?: (not recorded) Diseases exposed to:: (not recorded) Is Patient ?: (not recorded) Exposure Date: (not recorded) Chief Complaint: Chief Complaint Patient presents with Diabetic Foot Ulcer History of Present Illness: Patient arrived with significant other via private care c/o of a left diabetic foot ulcer. The wound started about 2 weeks ago. Hospitalized over the weekend for IV antibiotics. Discharged with antibiotics and still taking the antibiotics at home but patient believes the wound is getting worse. Patient was discharged home on PO Bactrim, that he has been taking for 2 days, he also has been using a Bleach Solution to wash his legs. History provided by: Patient carrier washer used: No Past Medical History/Immunizations: Past Medical History: Diagnosis Date Anxiety BPH (benign prostatic hypertrophy) Carotid arterial disease Cataract Diabetes mellitus Hyperlipidemia YUDITH on CPAP 05/2017 noncompliant with cpap S/P CABG x 3 on 06/21/2017 06/21/2017 Tetanus received in last 5 years: Unknown Childhood immunizations: Up-to-date Allergies: Allergies Allergen Reactions Toradol [Ketorolac] Hallucinations Past Social History: Tobacco Use Never smoked or used smokeless tobacco. Passive Exposure: Never Alcohol Use No. Drug Use No. Sexual Activity Sexually active; Partners: Female. Past Surgical History: Past Surgical History: Procedure Laterality Date ANGIOPLASTY Right 05/06/2018 Surgeon: Christie Hanks MD; [facility] [place] ARTERIOGRAM Bilateral 02/20/2017 Surgeon: Efraín Davey MD; [facility] [place] CAROTID ANGIOGRAPHY Bilateral 05/06/2018 Surgeon: Christie Hanks MD; [facility] [place] CAROTID ENDARTERECTOMY Right 05/08/2022 Surgeon: Jose E Moore MD; [facility] CAROTID STENTING Right 03/01/2017 Surgeon: Tanvi Sue Jr., MD; Location: [facility] CAROTID STENTING Left 03/15/2017 Surgeon: Efraín Davey MD; [facility] COLONOSCOPY N/A 12/13/2021 Surgeon: Og Escobar MD; Location: [facility] ([facility]) OR LOCATION CORONARY ARTERY BYPASS GRAFT N/A 06/21/2017 Surgeon: Suzie Kennedy MD; Location: [facility] DORSAL WRIST Right tendon repair FIBROSCAN (SHX) N/A 11/29/2021 Surgeon: Mckayla Palacios ACNP; Location: ENDOSCOPY ([facility]) OR LOCATION PHACOEMULSIFICATION OF CATARACT WITH INTRAOCULAR LENS IMPLANT Left 06/14/2022 Surgeon: Stephon Escobar MD; Location: [facility] 2ND FLOOR OR LOCATION [place] TCAT IV STENT CRV CRTD ART EMBOLIC PROTECJ 03/01/2017 TONSILLECTOMY Review of Systems: Review of Systems Constitutional: Negative for activity change, appetite change, chills, diaphoresis, fatigue and fever. HENT: Negative for congestion, ear discharge, ear pain, rhinorrhea, sore throat and trouble swallowing. Eyes: Negative for photophobia, pain, discharge and redness. Respiratory: Negative for cough, chest tightness, shortness of breath and wheezing. Cardiovascular: Positive for leg swelling. Negative for chest pain and palpitations. Gastrointestinal: Negative for abdominal distention, abdominal pain, blood in stool, constipation, nausea and vomiting. Genitourinary: Negative for dysuria, urgency, polyuria, frequency, hematuria and flank pain. Musculoskeletal: Negative for arthralgias, joint swelling, myalgias and neck stiffness. Mild Redness and swelling on his left foot and ankle Skin: Negative for color change, rash and wound. Neurological: Negative for dizziness, seizures, syncope, facial asymmetry, weakness, light-headedness, numbness and headaches. Psychiatric/Behavioral: Negative for agitation, confusion, hallucinations and self-injury. The patient is not nervous/anxious. Hematological: Negative for adenopathy and cold intolerance. Does not bruise/bleed easily. Endocrine: Negative for cold intolerance, polydipsia and polyuria. Physical Exam: ED Triage Vitals [11/19/23 1313] Weight 103.4 kg (228 lb) Actual or estimated Estimated by patient/family report Height 1.829 m (6') BP 110/64 Pulse 65 Resp 18 Temp 36.5 ?C (97.7 ?F) Temp source Oral SpO2 97 % Measured on Room air Physical Exam Vitals and nursing note reviewed. Constitutional: General: He is not in acute distress. Appearance: He is well-developed. He is not diaphoretic. HENT: Head: Normocephalic and atraumatic. Right Ear: External ear normal. Left Ear: External ear normal. Nose: Nose normal. Mouth/Throat: Pharynx: No oropharyngeal exudate. Eyes: General: No scleral icterus. Right eye: No discharge. Left eye: No discharge. Conjunctiva/sclera: Conjunctivae normal. Pupils: Pupils are equal, round, and reactive to light. Neck: Thyroid: No thyromegaly. Vascular: No JVD. Trachea: No tracheal deviation. Cardiovascular: Rate and Rhythm: Normal rate and regular rhythm. Pulses: Dorsalis pedis pulses are 2+ on the right side and 2+ on the left side. Posterior tibial pulses are 2+ on the right side and 2+ on the left side. Heart sounds: Normal heart sounds. No murmur heard. No friction rub. No gallop. Pulmonary: Effort: Pulmonary effort is normal. No respiratory distress. Breath sounds: Normal breath sounds. No stridor. No wheezing or rales. Chest: Chest wall: No tenderness. Abdominal: General: Bowel sounds are normal. There is no distension. Palpations: Abdomen is soft. There is no mass. Tenderness: There is no abdominal tenderness. There is no guarding or rebound. Musculoskeletal: General: No tenderness or deformity. Normal range of motion. Cervical back: Normal range of motion and neck supple. Right lower le+ Pitting Edema present. Left lower le+ Pitting Edema present. Feet: Right foot: Skin integrity: Skin integrity normal. Toenail Condition: Right toenails are abnormally thick. Left foot: Skin integrity: Erythema present. No ulcer, blister, skin breakdown, warmth, callus, dry skin or fissure. Toenail Condition: Left toenails are abnormally thick. Lymphadenopathy: Cervical: No cervical adenopathy. Skin: General: Skin is warm and dry. Coloration: Skin is not pale. Findings: No erythema or rash. Neurological: Mental Status: He is alert and oriented to person, place, and time. Cranial Nerves: No cranial nerve deficit. Motor: No abnormal muscle tone. Coordination: Coordination normal. Deep Tendon Reflexes: Reflexes are normal and symmetric. Reflexes normal. Psychiatric: Behavior: Behavior normal. Thought Content: Thought content normal. Judgment: Judgment normal. Radiology: No orders to display Lab Results: Lab Results BASIC METABOLIC PANEL (NA, K, CL, CO2, GLUCOSE, BUN, CREATININE, CA) - Abnormal Result Value Ref Range NA 137 135 - 145 mmol/L K 4.9 3.5 - 5.0 mmol/L CL 103 98 - 108 mmol/L CO2 TOTAL 24 23 - 31 mmol/L AGAP 10 2 - 16 BUN 17 7 - 23 mg/dL GLUCOSE 236 (*) 70 - 110 mg/dL CREATININE 1.07 0.60 - 1.25 mg/dL CALCIUM 9.3 8.6 - 10.6 mg/dL eGFR 76.5 mL/min/1.73m2 CBC WITH DIFF EKG: If EKG completed, see Procedure Note. Orders and Treatments: Orders Placed This Encounter Procedures Cbc with Diff Basic Metabolic Panel (NA, K, CL, CO2, GLUCOSE, BUN, CREATININE, CA) Orders Placed This Encounter Medications vancomycin (VANCOCIN) 1,500 mg in NaCl 0.9% (NS) 500 mL VIAL-MATE IV piggyback linezolid 600 mg tablet First Provider Eval: ED Events Date/Time Event User Comments 11/19/23 1312 Medical Screening Begins YANELIS ENGLE MD -- 11/19/23 1312 First Provider Evaluation YANELIS ENGLE MD -- ED COURSE Patient's condition improved with the treatment provided in the ED, will switch his antibiotic from Bactrim to PO Zyvox and he is instructed to follow up with his PCP in 2 days to re-evaluate his leg. Diagnosis/Impression as of 11/19/23 1439 Left leg cellulitis Type 2 diabetes mellitus with hyperglycemia, unspecified whether long term acute care registered nurse insulin use Procedures: Procedures MDM: Medical Decision Making Problems Addressed: Left leg cellulitis: complicated acute illness or injury Type 2 diabetes mellitus with hyperglycemia, unspecified whether long term acute care registered nurse insulin use: chronic illness or injury with exacerbation, progression, or side effects of treatment Amount and/or Complexity of Data Reviewed Labs: ordered. Decision-making details documented in ED Course. Risk OTC drugs. Prescription drug management. Flowsheet Documentation: Scoring Tools: No data recorded Disposition/Condition: ED Disposition ED Disposition Disch - Home Condition Stable Comment -- Discharge Medications: Patient's Medications START taking these medications LINEZOLID 600 MG TABLET Take 1 tablet by mouth every 12 (twelve) hours. CONTINUE taking these medications which have NOT CHANGED ALBUTEROL 90 MCG/ACTUATION INHALER Inhale 2 Puffs every 6 (six) hours as needed for Wheezing or Shortness of Breath. AMINO ACIDS/CHROMIUM (CHROMIMIN ORAL) Take by mouth. ASPIRIN 81 MG CHEWABLE TABLET Take 1 tablet by mouth daily. ATORVASTATIN 80 MG TABLET Take 1 tablet by mouth at bedtime. BLOOD SUGAR DIAGNOSTIC (Energy[employer] SolutionsTOUCH VERIO TEST STRIPS) STRIP Use as directed to check blood sugars daily E11.40 E.65 CLOPIDOGREL 75 MG TABLET TAKE 1 TABLET BY MOUTH DAILY. DIAZEPAM (VALIUM) 2 MG TABLET Take 1 tablet by mouth 3 (three) times daily as needed for Muscle Spasms. EZETIMIBE 10 MG TABLET Take 10 mg by mouth in the morning. FEXOFENADINE 180 MG TABLET Take 180 mg by mouth daily. FLUTICASONE (FLONASE SENSIMIST) 27.5 MCG/ACTUATION NASAL SPRAY Use 2 Sprays in each nostril daily. FLUTICASONE PROPIONATE 50 MCG/ACTUATION NASAL SPRAY GABAPENTIN 100 MG CAPSULE TAKE 1 CAPSULE BY MOUTH AT BEDTIME GLIMEPIRIDE 4 MG TABLET Take 1 tablet by mouth in the morning and 1 tablet in the evening. PLEASE CONTACT CLINIC TO SCHEDULE A FOLLOW UP BEFORE ADDITIONAL REFILLS CAN BE APPROVED INSULIN NEEDLES, DISPOSABLE, (BONITA PEN NEEDLE) 32 GAUGE X 5/32" NDLE USE DIRECTED- ONCE DAILY. DX:E11.65 ISOSORBIDE MONONITRATE 30 MG 24 HR TABLET TAKE 1 TABLET BY MOUTH IN THE MORNING. KCL 20 MEQ TABLET TAKE 1 TABLET BY MOUTH DAILY LANCETS ([employer] SolutionsTOUCH DELICA PLUS LANCET) 30 GAUGE MISC Use as directed to check blood sugars once daily E11.40 E11.65 LISINOPRIL 20 MG TABLET Take 1 tablet by mouth in the morning and 1 tablet in the evening. Do all this for 14 days. METFORMIN ER 500 MG 24 HR TABLET TAKE 2 TABLETS BY MOUTH 2 TIMES DAILY WITH MEALS. MOXIFLOXACIN 0.5 % OPHTHALMIC DROPS Place 1 Drop in left eye 4 (four) times daily. Start 1 day after surgery ONDANSETRON 4 MG DISINTEGRATING TABLET Take 1 tablet by mouth every 4 (four) hours as needed for Nausea and Vomiting (N/V). PREDNISOLONE ACETATE 1 % OPHTHALMIC SUSPENSION DROPS Place 1 Drop in left eye 4 (four) times daily. SULFAMETHOXAZOLE-TRIMETHOPRI M 800-160 MG PER TABLET Take 1 tablet by mouth in the morning and 1 tablet in the evening. Do all this for 7 days. TAMSULOSIN 0.4 MG 24 HR CAPSULE TAKE 1 CAPSULE BY MOUTH DAILY. TRESIBA FLEXTOUCH U-100 100 UNIT/ML (3 ML) INPN INJECT 24 UNITS UNDER THE SKIN DAILY. START taking Modified Medications as Prescribed No medications on file STOP taking these medications CYCLOBENZAPRINE 10 MG TABLET Take 1 tablet by mouth 3 (three) times daily as needed for Muscle Spasms. FLUOXETINE 20 MG CAPSULE TAKE 1 CAPSULE BY MOUTH EVERY DAY Follow-up: Contact information for follow-up Josiah Torres DO Specialty: IM-NEPHROLOGY Relationship: PCP - [facility] [address] [facility] [id number] Instructions: For wound re-check Electronically signed by: Yanelis Engle MD 11/19/23 1439 T [facility] 2023-11-18 14:55:37 TRANSITIONAL CARE MANAGEMENT ASSESSMENT 11/18/2023 Elgin Castañeda [id number] Elgin Castañeda is a 68 year old /White male was admitted on 11/14/23 to [facility]. He was discharged on 11/16/23 with discharge disposition of HR- Routine Discharge. Admitting Physician: Carlos Escobar Discharge Diagnosis: Principal Diagnosis: Cellulitis of left foot No linked episodes TCM [id number] outreach documentation: Discharge Assessment Chart Assessed: 11/18/23 TCM Outreach Completed: 11/18/23 Do you have a few minutes to speak with me about how you are doing at home?: Yes (Spoke with pt's . States pt's foot is more swollen than when at discharge, and is painful to the touch. Advised pt to be evaluated at Urgent Care. Pt is scheduled with his PCP next week.) Discharge Instructions Do you understand your at-home instructions?: Yes (No questions at this time.) Medications Have you filled your prescriptions and do you have them in your home? : Yes Do you know how to take your medications?: Yes (No questions.) Supplies Did you receive applicable home medical supplies/equipment?: N/A Follow Up Appointment Has a follow up appointment been scheduled?: Yes Do you have any questions about your follow up appointments?: No Are you able to get to your appointment? Who will be taking you?: Yes Home Health Assistance Has the home health nurse contacted you since you've been home?: N/A Survey - Recognition Is there anything you would like to share about your recent hospitalization, or anyone you would like to recognize?: No Do you have any suggestions for improvement?: No Do you have any other questions or concerns at this time?: No Future Appointments: PCP "next week" Carlos Arriaza RN [facility] 2023-11-16 12:34:45 Problem: Falls, Risk of Goal: Absence of falls Outcome: Adequate for discharge Problem: Venous Thromboembolism, (actual or risk of) Goal: Absence of venous thromboembolism (Risk) Outcome: Adequate for discharge Goal: Prevent further complications associated with VTE diagnosis (Actual) Outcome: Adequate for discharge Problem: Skin integrity Impaired (Risk or Actual) Goal: Wound healing Outcome: Adequate for discharge Goal: Prevention of new skin breakdown Outcome: Adequate for discharge Problem: Infection Risk Goal: Absence of infection Outcome: Adequate for discharge Problem: Glucose control Goal: Glucose level within specified parameters Outcome: Adequate for discharge Rosita Morgan RN [facility] 2023-11-16 06:51:09 Images from the original note were not included. Vancomycin Therapeutic Monitoring Note Pharmacy to monitor vancomycin dosing for patient Elgin Castañeda, [id number]. Primary Physician: Dr. Luz YAÑEZ Physician, if following: None Indication for Vancomycin and Goal Trough: Skin and Soft Tissue Infection - Trough 10-15 mcg/mL Age: [age] year old Weight: Wt Readings from Last 1 Encounters: 11/16/23 101 kg (222 lb 9.6 oz) Duration of Antibiotics: TBD Concurrent Antibiotics: Unasyn 3GM IV Q 6H Microbiology: Blood Culture- No growth in 24 hrs Laboratory Data and Vancomycin Dosing: Date Scr (mg/dL) CrCL (mL/min) Dosing Regimen and frequency @ Times (mg) Vancomycin Level @ Time (mcg/mL) 11/14/23 1.25 72 Vancomycin 1 GM x 1 dose Ed - 11/15/23 1.02 Vancomycin 1 GM IV Q 12H 12.9 11/16/23 0.86 104 Vancomycin 1250 mg IV Q 12H - - - - - Assessment and Plan: Plan is to: Vancomycin 1 gm x 1 doset in ED, then Vancomycin 1 gm IV q 12H Start vancomycin scheduled at a dose of: Vancomycin 1250 mg IV q 12H Continue current regimen Plan to draw next level on: _11/17/23_ @ _0500_ Thank you for allowing pharmacy to participate in the care of this patient. Please feel free to contact us with any questions or concerns. Diane Harris RPH [facility] 11/16/2023 6:[address] [facility] Department of Pharmacy - [facility] Phone: [facility]: [phone] [facility] 2023-11-15 21:58:49 Problem: Falls, Risk of Goal: Absence of falls Outcome: Progressing as expected Problem: Venous Thromboembolism, (actual or risk of) Goal: Absence of venous thromboembolism (Risk) Outcome: Progressing as expected Goal: Prevent further complications associated with VTE diagnosis (Actual) Outcome: Progressing as expected Problem: Skin integrity Impaired (Risk or Actual) Goal: Wound healing Outcome: Progressing as expected Goal: Prevention of new skin breakdown Outcome: Progressing as expected Problem: Infection Risk Goal: Absence of infection Outcome: Progressing as expected Problem: Glucose control Goal: Glucose level within specified parameters Outcome: Progressing as expected Justin Barba RN [facility] 2023-11-15 18:20:28 Problem: Falls, Risk of Goal: Absence of falls Outcome: Progressing as expected Problem: Venous Thromboembolism, (actual or risk of) Goal: Absence of venous thromboembolism (Risk) Outcome: Progressing as expected Goal: Prevent further complications associated with VTE diagnosis (Actual) Outcome: Progressing as expected Problem: Skin integrity Impaired (Risk or Actual) Goal: Wound healing Outcome: Progressing as expected Goal: Prevention of new skin breakdown Outcome: Progressing as expected Radha Hartley RN [facility] 2023-11-15 02:36:19 Problem: Falls, Risk of Goal: Absence of falls Outcome: Progressing as expected Problem: Venous Thromboembolism, (actual or risk of) Goal: Absence of venous thromboembolism (Risk) Outcome: Progressing as expected Goal: Prevent further complications associated with VTE diagnosis (Actual) Outcome: Progressing as expected Problem: Skin integrity Impaired (Risk or Actual) Goal: Wound healing Outcome: Progressing as expected Goal: Prevention of new skin breakdown Outcome: Progressing as expected [facility] 2023-11-15 01:37:49 Patient admitted to [place] [id number] for diagnosis of celulitis of left foot Patient agrees to admission, discussed plan of care with patient and family. Patient is awake, alert, oriented, resp reg unlabored, color appropriate for race, PIV intact No adverse reaction to medications administered while in ED Belongings with patient to unit Report to Kim Berta Nix RN [facility] 2023-11-15 01:11:30 Images from the original note were not included. Vancomycin Therapeutic Monitoring Note Pharmacy to monitor vancomycin dosing for patient Elgin Castañeda, [id number]. Primary Physician: Dr. Luz YAÑEZ Physician, if following: None Indication for Vancomycin and Goal Trough: Skin and Soft Tissue Infection - Trough 10-15 mcg/mL Age: [age] year old Weight: Wt Readings from Last 1 Encounters: 11/14/23 102.5 kg (226 lb) Duration of Antibiotics: TBD Concurrent Antibiotics: Unasyn 3 gm IV Q 6H Microbiology: Blood Culture Laboratory Data and Vancomycin Dosing: Date Scr (mg/dL) CrCL (mL/min) Dosing Regimen and frequency @ Times (mg) Vancomycin Level @ Time (mcg/mL) 11/14/23 1.25 72 Vancomycin 1 GM x 1 dose ED - 11/15/23 Vancomycin 1 GM IV Q 12H - - - - - - Assessment and Plan: Plan is to: Vancomycin 1 GM x 1 dose in ED Start vancomycin scheduled at a dose of: Vancomycin 1 GM IV Q 12H Continue current regimen Plan to draw next trough level on: _11/16/23_ @ _0500_ Thank you for allowing pharmacy to participate in the care of this patient. Please feel free to contact us with any questions or concerns. Diane Harris RPH, RPH 11/15/2023 1:[address] [facility] Department of Pharmacy - [facility] Phone: ADC: [phone] [facility] 2023-11-14 23:10:08 Received report from Colin GABRIEL. Pt sitting up in bed eating pudding. at bedside. Zosyn and IV fluids infusing to IV to left AC. No needs voiced. [facility] 2023-11-14 23:01:24 Report given to Nix, RN Skyla Shaw RN [facility] 2023-11-14 23:00:00 Patient given sandwich, sugar free pudding, water. [facility] 2023-11-14 20:52:19 Pt arrived ambulatory without assist. Pt with him, okay to discuss medical care in front of . Pt states " I thought I had a stone bruise on the bottom of left foot but now it is swollen, hot, red and painful." Liset Carrion RN [facility] 2023-11-14 20:45:00 AdmissionCare Guideline: Cellulitis - OBS, Observation Based on the indications selected for the patient, the bed status of Observation was determined to be MET The following indications were selected as present at the time of evaluation of the patient: - Patient significantly Immunosuppressed - Poorly controlled diabetes mellitus (eg, HbA1c of 8.5% (69 mmol/mol) or higher) - Severity of infection unclear (eg, concern regarding rapid progression) AdmissionCare documentation entered by: Dago Lovelace [facility], 28th edition, Copyright ? 2023 [facility] All Rights Reserved. [id number] T [facility] 2023-08-15 09:38:22 Agree with recommendations. Last seen by [facility] 05/07/2022. Need follow up appt with any one of us. [facility] 2023-08-15 09:20:50 Received preop clearance (Oral Surgery) and anticoagulation guidance request for plavix and aspirin from Dr. Metz. Patient INGA: 11.28.22. Requires office visit for clearance. Fax sent to Dr. Metz requesting patient to schedule appointment. ATIONS RESEARCH MANAGER Melissa Buck RN [facility]
--- NOTE | 2024-09-24 09:37 | RAD REPORT ---
EXAM: CT Head Brain Wo Cont HISTORY: HTN urgency COMPARISON: None TECHNIQUE: Multiple contiguous axial images were obtained for a CT of the brain without contrast. Sag ittal and coronal reformats were performed. One or more of the following dose reduction techniques were used: Automated exposure control, adjus tment of the mA and kV according to patient size, and iterative reconstruction. Unless otherwise specified, incidental findings do not require dedicated imaging follow-up. FINDINGS: No evidence of hydrocephalus, intracranial hemorrhage, or extra-axial fluid collection. Foci of hypoattenuation in the deep white matter within the right centrum semiovale bowel and the lef t subinsular region, nonspecific. No other findings of an acute territorial infarct. The calvarium is intact. 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 Mild mu cosal thickening in the maxillary sinuses and air-fluid level with aerated secretions in the left sphenoid sinus. mastoid air cells are essentially clear. IMPRESSION: Foci of hypoattenuation in the deep white matter within the right centrum semiovale bowel and the lef t subinsular region, nonspecific, but could relate to prominent perivascular spaces or small infarcts of indeterminate age. If there is concern for acute ischemia, additional evaluation by MRI w ith provide sensitivity. No evidence of acute intracranial hemorrhage.
[2024-09-24 10:19] LABS: Absolute Eosinophils 0.1 K/uL (0-0.5); Absolute Lymphocytes (CBC) 2.1 K/uL (0.7-4.9); Absolute Monocytes 0.6 K/uL (0.1-1.3); Basophils % 0.6 % (0-1.3); Eosinophils % 1.5 % (0-4.4); Hematocrit 41.4 % (39.6-49.0); Hemoglobin 14.4 g/dL (13.6-17.9); Lymphocytes % 30.2 % (15.3-44.8); MCH 29.4 pg (27.0-35.0); MCHC 34.7 g/dL (32.0-36.0); MCV 84.8 fL (80-100); MPV 8.6 fL (7.6-11.3); Monocytes % 9.4 % (3.3-12.3); Neutrophils % 58.3 % (41.7-73.7); Platelets 193 thou/uL (152-406); RBC Red Blood Cell Count 4.88 M/uL (4.33-5.43); Red Cell Distribution Width 13.5 % (12.1-15.2)
[2024-09-24 10:45] LABS: Anion Gap 10.6 mEq/L (5.0-15.0); Potassium 3.6 mEq/L (3.5-5.1); Troponin High Sensitivity 21.6 pg/mL (<58.9)
--- NOTE | 2024-09-24 10:50 | ER ---
Nurse's Notes [facility] Name: Samuel Morgan Age: 68 yrs Sex: Male : 1955 Arrival Date: 09/24/2024 Time: 08:34 Bed 13 Private MD: Diagnosis: Postprocedure hypertension, essential hypertension, headache, hypertensive urgency Presentation: 09/24 08:37 Chief complaint: Patient states: "I just had a colonoscopy without anesthesia and Dr. ritu Turner (GI) sent me here for high blood pressure, it got up to 233 (systolic)". Pt reports "slight headache". 08:37 Coronavirus screen: At this time, the client does not indicate any symptoms associated aa5 with coronavirus-19. Ebola Screen: Patient denies travel to an Ebola-affected area in the 21 days before illness onset. Initial Sepsis Screen: Does the patient meet any 2 criteria? No. Patient's initial sepsis screen is negative. Does the patient have a suspected source of infection? No. Patient's initial sepsis screen is negative. Risk Assessment: Do you want to hurt yourself or someone else? Patient reports no desire to harm self or others. Onset of symptoms was September 24, 2024. 08:37 Method Of Arrival: Ambulatory aa5 08:37 Acuity: GAURAV 3 aa5 Historical: - Allergies: 08:51 Toradol; aa5 - Home Meds: 08:51 Plavix 75 mg Oral tablet [Active]; Aspirin Oral [Active]; Xanax Oral PRN [Active]; aa5 Glimepiride Oral [Active]; tamsulosin oral [Active]; Tresiba FlexTouch U-100 100 unit/mL (3 mL) subcutaneous Insulin Pen [Active]; isosorbide [Active]; - PMHx: 08:51 Anxiety; Carotid Blockage; Diabetes mellitus; aa5 - PSHx: 08:51 Carotid stents; Heart Stents; heart bypass; aa5 - Immunization history:: Adult Immunizations unknown. - Infectious Disease History:: Denies. - Social history:: Smoking status: Patient denies any tobacco usage or history of. Screenin:23 [facility] ED Fall Risk Assessment (Adult) History of falling in the last 3 months, ap3 including since admission No falls in past 3 months (0 pts) Confusion or Disorientation No (0 pts) Intoxicated or Sedated No (0 pts) Impaired Gait No (0 pts) Mobility Assist Device Used No (0 pt) Altered Elimination No (0 pt) Score/Fall Risk Level 0 - 2 = Low Risk Oriented to surroundings, Maintained a safe environment, Educated pt \\T\\ family on fall prevention, incl call for assistance when getting out of bed, Assessed \\T\\ reinforced patient's understanding of fall precautions, Hourly rounding (assess needs \\T\\ fall precautionary measures) done, Used ambulatory aids as needed (educated on \\T\\ assisted with). Abuse screen: Denies threats or abuse. Nutritional screening: No deficits noted. Tuberculosis screening: No symptoms or risk factors identified. Assessment: 10:22 General: Appears in no apparent distress. Behavior is calm, cooperative, appropriate ap3 for age. Pain: Denies pain. Neuro: Level of Consciousness is awake, alert, obeys commands, Oriented to person, place, time, situation, Appropriate for age. Cardiovascular: Patient's skin is warm and dry. Respiratory: Airway is patent Respiratory effort is even, unlabored, Respiratory pattern is regular, symmetrical. 10:40 Reassessment: Patient and/or family updated on plan of care and expected duration. Pain ap3 level reassessed. Patient is alert, oriented x 3, equal unlabored respirations, skin warm/dry/pink. General: Appears comfortable, Behavior is calm, cooperative, appropriate for age. Vital Signs: 08:37 BP 189 / 73; Pulse 52; Resp 16 S; Temp 98.3(O); Pulse Ox 99% on R/A; Weight 99.79 kg aa5 (R); Height 6 ft. 0 in. (R); 10:22 BP 178 / 87; Pulse 57; Resp 17; Pulse Ox 97% on R/A; ap3 08:37 Body Mass Index 29.84 (99.79 kg, 182.88 cm) aa5 ED Course: 08:35 Patient arrived in ED. im 08:37 Arm band placed on Patient placed in an exam room, on a stretcher. aa5 08:38 Billy Ayers MD is Attending Physician. sp3 08:42 Vivian Mendez, HARVEY is Primary Nurse. ap3 08:51 Triage completed. aa5 08:58 CT Head Brain wo Cont In Process Unspecified. EDMS 10:10 Initial lab(s) drawn, by me, sent to lab. Inserted saline lock: 22 gauge in left wrist, zm using aseptic technique. Blood collected. Flushed with 10 mL NS. 10:10 Basic Metabolic Panel Sent. zm 10:10 CBC with Diff Sent. zm 10:10 Troponin HS Sent. zm 10:22 Patient has correct armband on for positive identification. Bed in low position. Call ap3 light in reach. Side rails up X2. Adult w/ patient. Provided Education on: EKG and call light education. Client placed on continuous cardiac and pulse oximetry monitoring. NIBP monitoring applied. incoming freight clerk on. Pulse ox on. NIBP on. Door closed. Noise minimized. 10:23 EKG done, by ED staff, reviewed by Bilyl Ayers MD. ap3 10:54 No provider procedures requiring assistance completed. ap3 11:01 IV discontinued, intact, bleeding controlled, No redness/swelling at site. Pressure ap3 dressing applied. Administered Medications: 10:24 Not Given (pt reports allergyy): [id number] mg IVP once ap3 Medication: 10:54 VIS not applicable for this client. ap3 Outcome: 10:49 Discharge ordered by . sp3 11:00 Discharged to home ambulatory, with family, ap3 11:00 Condition: good 11:00 Discharge instructions given to patient, family, Instructed on discharge instructions, follow up and referral plans. Demonstrated understanding of instructions, follow-up care, 11:02 Patient left the ED. ap3 Signatures: Dispatcher [employer] [facility] Maureen Díaz RN RN aa5 Vivian Mendez RN RN ap3 Billy Ayers MD MD sp3 Kirsten Shipley Itzel im
--- NOTE | 2024-09-24 10:51 | EDPHYS ---
Physician Documentation [facility] Name: Samuel Morgan Age: 68 yrs Sex: Male : 1955 Arrival Date: 09/24/2024 Time: 08:34 Bed 13 Private MD: ED Physician Billy Ayers HPI: 09/24 08:51 This 68 yrs old Male presents to ER via Unassigned with complaints of High Blood sp3 Pressure. 08:51 68-year-old male with history of prior ME, hypertension presents to the ED referred sp3 from outpatient procedure center from Dr. Franco's office for hypertensive urgency. Patient had a colonoscopy without anesthesia due to his blood pressure initially being elevated and postprocedure BP read 233 systolic. Patient has mild headache only with no other symptoms including chest pain, shortness of breath, back pain, syncope, or any other signs or symptoms on ROS at this time. Patient denies any trauma, prior headaches, worst headache of life, or any other concerning symptoms.. Historical: - Allergies: 08:51 Toradol; aa5 - Home Meds: 08:51 Plavix 75 mg Oral tablet [Active]; Aspirin Oral [Active]; Xanax Oral PRN [Active]; aa5 Glimepiride Oral [Active]; tamsulosin oral [Active]; Tresiba FlexTouch U-100 100 unit/mL (3 mL) subcutaneous Insulin Pen [Active]; isosorbide [Active]; - PMHx: 08:51 Anxiety; Carotid Blockage; Diabetes mellitus; aa5 - PSHx: 08:51 Carotid stents; Heart Stents; heart bypass; aa5 - Immunization history:: Adult Immunizations unknown. - Infectious Disease History:: Denies. - Social history:: Smoking status: Patient denies any tobacco usage or history of. ROS: 08:52 Constitutional: Negative for fever, chills, and weight loss, Eyes: Negative for injury, sp3 pain, redness, and discharge, ENT: Negative for injury, pain, and discharge, Neck: Negative for injury, pain, and swelling, Respiratory: Negative for shortness of breath, cough, wheezing, and pleuritic chest pain, Abdomen/GI: Negative for abdominal pain, nausea, vomiting, diarrhea, and constipation, Back: Negative for injury and pain, MS/Extremity: Negative for injury and deformity, Skin: Negative for injury, rash, and discoloration, Allergy/Immunology: Negative for hives, rash, and allergies, Endocrine: Negative for neck swelling, polydipsia, polyuria, polyphagia, and marked weight changes, Hematologic/Lymphatic: Negative for swollen nodes, abnormal bleeding, and unusual bruising, 08:52 All other systems are negative, Exam: 08:52 Constitutional: This is a well developed, well nourished patient who is awake, alert, sp3 and in no acute distress. Head/Face: Normocephalic, atraumatic. Eyes: Pupils equal round and reactive to light, extra-ocular motions intact. Lids and lashes normal. Conjunctiva and sclera are non-icteric and not injected. Cornea within normal limits. Periorbital areas with no swelling, redness, or edema. ENT: Nares patent. No nasal discharge, no septal abnormalities noted. External auditory canals are clear. Oropharynx with no redness, swelling, or masses, exudates, or evidence of obstruction, uvula midline. Mucous membranes moist. Neck: Trachea midline, no thyromegaly or masses palpated, and no cervical lymphadenopathy. Supple, full range of motion without nuchal rigidity, or vertebral point tenderness. No Meningismus. Chest/axilla: Normal chest wall appearance and motion. Nontender with no deformity. No lesions are appreciated. Cardiovascular: Regular rate and rhythm with a normal S1 and S2. No gallops, murmurs, or rubs. Normal PMI, no JVD. No pulse deficits. Respiratory: Lungs have equal breath sounds bilaterally, clear to auscultation and percussion. No rales, rhonchi or wheezes noted. No increased work of breathing, no retractions or nasal flaring. Abdomen/GI: Soft, non-tender, with normal bowel sounds. No distension or tympany. No guarding or rebound. No evidence of tenderness throughout. Back: No spinal tenderness. No costovertebral tenderness. Full range of motion. Skin: Warm, dry with normal turgor. Normal color with no rashes, no lesions, and no evidence of cellulitis. MS/ Extremity: Pulses equal, no cyanosis. Neurovascular intact. Full, normal range of motion. Neuro: Awake and alert, GCS 15, oriented to person, place, time, and situation. Cranial nerves II-XII grossly intact. Motor strength 5/5 in all extremities. Sensory grossly intact. Cerebellar exam normal. Normal gait. Psych: Awake, alert, with orientation to person, place and time. Behavior, mood, and affect are within normal limits. 08:52 Constitutional: The patient appears Blood pressure in ED 189/73 with pulse rate 52. Patient resting comfortably in no acute distress. 10:19 ECG was reviewed by the Attending Physician. EKG demonstrates sinus bradycardia 51 bpm sp3 with first-degree AV block with ND interval 250, leftward axis nonspecific diffuse ST/T changes without evidence of acute ischemia. Vital Signs: 08:37 BP 189 / 73; Pulse 52; Resp 16 S; Temp 98.3(O); Pulse Ox 99% on R/A; Weight 99.79 kg aa5 (R); Height 6 ft. 0 in. (R); 10:22 BP 178 / 87; Pulse 57; Resp 17; Pulse Ox 97% on R/A; ap3 08:37 Body Mass Index 29.84 (99.79 kg, 182.88 cm) aa5 MDM: 08:46 Medical Screening Exam initiated sp3 08:52 Data reviewed: vital signs, nurses notes, lab test result(s), radiologic studies. ED sp3 course: 68-year-old male with PMH above now with hypertensive urgency and mild headache. Differential diagnosis includes hypertensive urgency, hypertension induced headache, other intracranial pathology, ME, renal failure, among others. Workup include CT scan of the head, EKG and general labs including troponin and kidney function. At 189/73 post procedure with no anesthesia, I will not administer any antihypertensive medications as his BP may be just indicative of pain from his recent procedure. Patient used to be on a beta-val is not any longer. Disposition probable discharge if symptoms improve and blood pressure improves as well.. 10:48 ED course: Full workup negative. Blood pressure 178/87. Will discharge to PCP follow-up sp3 for continued outpatient management of blood pressure.. 09/24 08:46 Order name: Basic Metabolic Panel; Complete Time: 10:48 sp3 09/24 08:46 Order name: CBC with Diff; Complete Time: 10:48 sp3 09/24 08:46 Order name: Troponin HS; Complete Time: 10:48 sp3 09/24 08:46 Order name: CT Head Brain wo Cont; Complete Time: 09:39 sp3 09/24 08:46 Order name: Cardiac monitoring; Complete Time: 10:24 sp3 09/24 08:46 Order name: EKG - Nurse/Tech; Complete Time: 10:24 sp3 09/24 08:46 Order name: IV Saline Lock; Complete Time: 10:10 sp3 09/24 08:46 Order name: Labs collected and sent; Complete Time: 10:10 sp3 09/24 08:46 Order name: O2 Sat Monitoring; Complete Time: 10:11 sp3 09/24 09:40 Order name: Recheck Blood Pressure; Complete Time: 10:24 sp3 Administered Medications: 10:24 Not Given (pt reports allergyy): [id number] mg IVP once ap3 Disposition Summary: 09/24/24 10:49 Discharge Ordered Notes: Location: Home sp3 Condition: Stable sp3 Diagnosis - Postprocedure hypertension, essential hypertension, headache, hypertensive urgency sp3 Followup: sp3 - With: Private Physician - When: Upon discharge from the Emergency Department - Reason: Recheck today's complaints, Continuance of care Discharge Instructions: - Discharge Summary Sheet sp3 - Hypertension, Adult sp3 Forms: - Medication Reconciliation Form sp3 - Antibiotic Education sp3 - Prescription Opioid Use sp3 - Patient Portal Instructions sp3 - Leadership Thank You Letter sp3 Signatures: Dispatcher [employer] Maureen Nicholson, RN RN aa5 Billy Ayers MD MD sp3 Vivian Mendez RN ap3 Corrections: (The following items were deleted from the chart) 08:46 08:46 BASIC METABOLIC PANEL+C.LAB.BRZ ordered. EDMS EDMS 08:46 08:46 CBC+H.LAB.BRZ ordered. EDMS EDMS 08:46 08:46 Troponin High Sensitivity+C.LAB.BRZ ordered. EDMS EDMS 08:46 08:46 Head Brain Wo Cont+CT.RAD.BRZ ordered. EDMS EDMS
[2024-09-24 11:15] VITALS: TEMP 98.3
[2024-09-24 11:25] VITALS: BP 178/87; O2SAT 97
== END 2024-09-24 11:02 | disposition home or self-care (01) ==
LOC: ER 08:34
DX: I97.3 Postprocedural hypertension (principal); I16.0 Hypertensive urgency; I10 Essential (primary) hypertension; Z95.1 Presence of aortocoronary bypass graft; Z95.818 Presence of other cardiac implants and grafts; Z79.01 Long term (current) use of anticoagulants
CPT/HCPCS: 36415; 70450; 80048; 84484; 85025; 93005